=== PATIENT | male | born 1955 | race Caucasian/White ===

== ENCOUNTER 2016-06-09 13:27 | Emergency (ER) | payer MEDICARE, MEDICAID ==
[~2016-06-09] VITALS: Ht 180.3 cm; Wt 98.0 kg
[~2016-06-09 13:27] MED LIST: DABI150 PO; DIVA500T35 PO; DOCU250C91 PO; LISI-662 PO; OMEP20 PO
[2016-06-09 14:29] LABS: BASOPHILS # (AUTO) 0.02 K/uL (0.00-0.20); BASOPHILS % (AUTO) 0.2 % (0.0-2.0); EOSINOPHILS # (AUTO) 0.02 K/uL (0.00-0.70); EOSINOPHILS % (AUTO) 0.24 % (1.0-6.0); HEMOGLOBIN 12.5 g/dL (13.5-17.5); LYMPHOCYTES # (AUTO) 1.8 K/uL (1.0-4.8); LYMPHOCYTES % (AUTO) 17.8 % (22.0-44.0); MEAN CORPUSCULAR HEMOGLOBIN 29.9 pg (26.0-34.0); MEAN CORPUSCULAR HGB CONC 33.8 G/dL (31.0-37.0); MEAN CORPUSCULAR VOLUME 88 fL (80-100); MONOCYTES # (AUTO) 0.8 K/uL (0.1-1.0); MONOCYTES % (AUTO) 8.4 % (2.0-9.0); NEUTROPHILS # (AUTO) 7.3 K/uL (1.8-7.7); NEUTROPHILS % (AUTO) 73.4 % (40.0-70.0); PLATELET COUNT (AUTO) 189 K/uL (150-450); RED BLOOD CELL COUNT(AUTO) 4.19 MIL/uL (4.50-5.90); WHITE BLOOD COUNT (AUTO) 9.9 K/uL (4.5-11.0)
[2016-06-09 14:32] LABS: ANION GAP 10 mmol/L (8-16); CALCIUM, TOTAL 8.7 mg/dL (8.8-10.5); CARBON DIOXIDE 29 mmol/L (22-29); CHLORIDE 101 mmol/L (98-107); CREATININE 1.37 mg/dL (0.60-1.30); GLOMERULAR FILTR. RATE CALC 53 mL/min (>60); POTASSIUM 4.4 mmol/L (3.5-5.1); SODIUM SERUM 140 mmol/L (136-145); UREA NITROGEN, BLOOD 22 mg/dL (7-18)
[2016-06-09 14:43] LABS: B-TYPE NATRIURETIC PEPTIDE 149 pg/mL (0-100)
[2016-06-09 14:56] LABS: ALANINE AMINOTRANSFERASE 16 U/L (12-78); ALBUMIN 3.4 g/dL (3.4-5.0); ASPARTATE AMINOTRANSFERASE 17 U/L (15-37); BILIRUBIN,TOTAL 0.6 mg/dL (0.1-1.0); CREATINE KINASE MB 0.9 ng/mL (0-5); CREATINE KINASE, TOTAL 112 U/L (39-308); TOTAL PROTEIN, SERUM 7.2 g/dL (6.4-8.2)
[2016-06-09] MEDS ORDERED: PANTOPRAZOLE SODIUM 40 MG DR TABLET PO ONE (17:45)
[2016-06-09 18:59] VITALS: BP 144/91
== END 2016-06-09 19:34 | disposition home or self-care (01) ==
LOC: EEVIPCON 13:31 → EMS 13:31
DX: F41.9 Anxiety disorder, unspecified (principal); R07.9 Chest pain, unspecified; R10.13 Epigastric pain; F31.9 Bipolar disorder, unspecified; J44.9 Chronic obstructive pulmonary disease, unspecified; I10 Essential (primary) hypertension; F20.9 Schizophrenia, unspecified
CPT/HCPCS: 36415; 80053; 82550; 82553; 83880; 84484; 85025; 93005; 99285; G0480

== ENCOUNTER 2016-10-11 11:23 | Emergency (ER) | payer MEDICARE, MEDICAID ==
[~2016-10-11] VITALS: Ht 180.3 cm; Wt 100.9 kg
[2016-10-11 14:56] VITALS: BP 129/89
== END 2016-10-11 15:02 | disposition home or self-care (01) ==
LOC: EMS 11:26
DX: S01.111A Laceration without foreign body of right eyelid and periocular area, initial encounter (principal); S09.90XA Unspecified injury of head, initial encounter; F20.9 Schizophrenia, unspecified; F41.9 Anxiety disorder, unspecified; I10 Essential (primary) hypertension; F31.9 Bipolar disorder, unspecified; I48.91 Unspecified atrial fibrillation; J44.9 Chronic obstructive pulmonary disease, unspecified; Z79.01 Long term (current) use of anticoagulants; W22.8XXA Striking against or struck by other objects, initial encounter; Y93.39 Activity, other involving climbing, rappelling and jumping off; Y92.013 Bedroom of single-family (private) house as the place of occurrence of the external cause; Y99.9 Unspecified external cause status
CPT/HCPCS: 12011; 99283

== ENCOUNTER 2017-03-14 22:45 | Inpatient (IN) | payer OTHER, MEDICAID ==
[~2017-03-14] VITALS: Ht 180.3 cm; Wt 99.2 kg
[~2017-03-14 22:45] MED LIST changes: +RISP1 PO
[2017-03-14] MEDS ORDERED: METO50TA18 PO (22:59)
[2017-03-14 23:15] LABS: BASOPHILS % (AUTO) 0.7 % (0.0-2.0); EOSINOPHILS % (AUTO) 1.7 % (1.0-6.0); HEMATOCRIT 41.4 % (41-53); HEMOGLOBIN 14.2 g/dL (13.5-17.5); LYMPHOCYTES # (AUTO) 2.7 K/uL (1.0-4.8); MEAN CORPUSCULAR HEMOGLOBIN 29.5 pg (26.0-34.0); MEAN CORPUSCULAR HGB CONC 34.4 G/dL (31.0-37.0); MEAN CORPUSCULAR VOLUME 86 fL (80-100); MONOCYTES % (AUTO) 14.3 % (2.0-9.0); NEUTROPHILS % (AUTO) 44.3 % (40.0-70.0); PLATELET COUNT (AUTO) 222 K/uL (150-450); RED BLOOD CELL COUNT(AUTO) 4.83 MIL/uL (4.50-5.90); RED CELL DISTRIBUTION WIDTH 15.8 % (11.5-14.5); WHITE BLOOD COUNT (AUTO) 6.8 K/uL (4.5-11.0)
[2017-03-14 23:24] LABS: ANION GAP 5 mmol/L (8-16); CALCIUM, TOTAL 8.9 mg/dL (8.8-10.5); CARBON DIOXIDE 33 mmol/L (22-29); CHLORIDE 95 mmol/L (98-107); CREATININE 1.17 mg/dL (0.60-1.30); GLOMERULAR FILTR. RATE CALC > 60 mL/min (>60); POTASSIUM 3.3 mmol/L (3.5-5.1); SODIUM SERUM 133 mmol/L (136-145); UREA NITROGEN, BLOOD 11 mg/dL (7-18)
[2017-03-14 23:30] LABS: ALANINE AMINOTRANSFERASE 18 U/L (12-78); ALBUMIN 3.6 g/dL (3.4-5.0); ASPARTATE AMINOTRANSFERASE 17 U/L (15-37); BILIRUBIN,TOTAL 0.3 mg/dL (0.1-1.0); TOTAL PROTEIN, SERUM 7.8 g/dL (6.4-8.2); VALPROIC ACID 90 mcg/mL (50-100)
[2017-03-15] MEDS ORDERED: LORazepam 2 MG TABLET PO PRN (00:30)
[2017-03-15] MEDS ORDERED: HALOPERIDOL 5 MG TABLET PO PRN (00:30)
[2017-03-15] MEDS ORDERED: ZOLPIDEM TARTRATE 10 MG TABLET PO PRN (00:30)
[2017-03-15] MEDS ORDERED: POTASSIUM CHLORIDE 20 MEQ ER TABLET PO ONE (00:45)
[2017-03-15 00:52] LABS: CHOL/HDL RATIO 4.3 (4.2-7.3); THYROID STIMULATING HORMONE 7.52 uIU/mL (0.36-3.74)
[2017-03-15 01:14] LABS: APPEARANCE,URINE CLEAR (CLEAR); GLUCOSE, URINE (UA) NEGATIVE (NEGATIVE); KETONES,URINE TRACE mg/dL (NEGATIVE); LEUKOCYTE ESTERASE ,URINE NEGATIVE (NEGATIVE); OCCULT BLOOD,URINE NEGATIVE (NEGATIVE); PROTEIN,URINE POS 1+ (NEGATIVE)
[2017-03-15 01:19] LABS: ADD UA MICROSCOPIC NO
[2017-03-15] MEDS ORDERED: INFLUENZA VIRUS VACCINE QVS 2017-18 (3YR+)/PF 60 MCG/0.5 ML SYRINGE IM ONE (02:00)
[2017-03-15] MEDS ORDERED: PNEUMOCOCCAL VACCINE POLYVALENT 0.5 ML VIAL [PPSV23] IM ONE (02:00)
[2017-03-15 02:19] VITALS: BP 155/91
[2017-03-15 09:15] VITALS: BP 128/98
[2017-03-15] MEDS ORDERED: ONDANSETRON HCL 4 MG TABLET PO PRN (09:30)
[2017-03-15] MEDS ORDERED: ALBUTEROL SULFATE HFA 90 MCG/PUFF 8 GM INHALER IH PRN (09:30)
[2017-03-15] MEDS ORDERED: MAG HYDROX/AL HYDROX/SIMETH ES 30 ML SUSPENSION UDCUP PO PRN (09:30)
[2017-03-15] MEDS ORDERED: MAGNESIUM HYDROXIDE SUSPENSION 30 ML UDCUP PO PRN (09:30)
[2017-03-15] MEDS ORDERED: LOPERAMIDE HCL 2 MG CAPSULE PO PRN (09:30)
[2017-03-15] MEDS ORDERED: ACETAMINOPHEN 325 MG TABLET PO PRN (09:30)
[2017-03-15] MEDS ORDERED: CloNIDine HCL 0.1 MG TABLET PO PRN (09:30)
[2017-03-15] MEDS ORDERED: IBUPROFEN 600 MG TABLET PO PRN (09:30)
[2017-03-15] MEDS ORDERED: BACITRACIN 28.4 GM OINTMENT TP PRN (09:30)
[2017-03-15] MEDS ORDERED: PETROLATUM,WHITE 71 GM JELLY TP PRN (09:30)
[2017-03-15] MEDS ORDERED: BENZOCAINE/MENTHOL LOZENGE MM PRN (09:30)
[2017-03-15] MEDS ORDERED: BENZOCAINE/MENTHOL LOZENGE [8 LOZENGES/PACKET] MM PRN (09:38)
[2017-03-15] MEDS: DABIGATRAN ETEXILATE MESYLATE 150 MG CAPSULE PO SCH ×2 (11:55→16:29)
[2017-03-15] MEDS: METOPROLOL TARTRATE 50 MG TABLET PO SCH ×2 (11:55→16:29)
[2017-03-15 17:32] VITALS: BP 151/95
[2017-03-15] MEDS: DIVALPROEX SODIUM 500 MG DR TABLET PO SCH (20:33)
[2017-03-16 04:48] VITALS: BP 147/101
[2017-03-16 06:22] LABS: POTASSIUM 3.8 mmol/L (3.5-5.1)
[2017-03-16] MEDS: LEVOTHYROXINE SODIUM 50 MCG TABLET PO SCH ×3 (07:00→07:08)
[2017-03-16 08:32] VITALS: BP 149/80
[2017-03-16] MEDS: DOCUSATE SODIUM 100 MG CAPSULE PO SCH ×2 (09:00→09:21)
[2017-03-16] MEDS: DABIGATRAN ETEXILATE MESYLATE 150 MG CAPSULE PO SCH ×2 (09:21→16:33)
[2017-03-16] MEDS: OMEPRAZOLE 20 MG CAPSULE PO SCH (09:21)
[2017-03-16] MEDS: METOPROLOL TARTRATE 50 MG TABLET PO SCH ×2 (09:21→16:33)
[2017-03-16] MEDS: OMEGA-3/DHA/EPA/FISH OIL 1,000 MG CAPSULE PO SCH (09:21)
[2017-03-16] MEDS: RisperiDONE 1 MG TABLET PO SCH ×2 (09:22→16:33)
[2017-03-16 16:41] VITALS: BP 128/79
[2017-03-16] MEDS: DIVALPROEX SODIUM 500 MG DR TABLET PO SCH (20:00)
[2017-03-17 05:19] VITALS: BP 138/74
[2017-03-17 08:15] VITALS: BP 134/73
[2017-03-17] MEDS: RisperiDONE 1 MG TABLET PO SCH ×2 (09:24→16:27)
[2017-03-17] MEDS: METOPROLOL TARTRATE 50 MG TABLET PO SCH ×2 (09:24→16:27)
[2017-03-17] MEDS: DOCUSATE SODIUM 100 MG CAPSULE PO SCH (09:24)
[2017-03-17] MEDS: OMEPRAZOLE 20 MG CAPSULE PO SCH (09:25)
[2017-03-17] MEDS: OMEGA-3/DHA/EPA/FISH OIL 1,000 MG CAPSULE PO SCH (09:25)
[2017-03-17] MEDS: DABIGATRAN ETEXILATE MESYLATE 150 MG CAPSULE PO SCH ×2 (09:25→16:27)
[2017-03-17 16:45] VITALS: BP 113/68
[2017-03-17] MEDS: DIVALPROEX SODIUM 500 MG DR TABLET PO SCH (20:20)
[2017-03-18] MEDS: LEVOTHYROXINE SODIUM 50 MCG TABLET PO SCH (07:00)
[2017-03-18] MEDS: DOCUSATE SODIUM 100 MG CAPSULE PO SCH (08:12)
[2017-03-18] MEDS: OMEPRAZOLE 20 MG CAPSULE PO SCH (08:12)
[2017-03-18] MEDS: RisperiDONE 1 MG TABLET PO SCH ×2 (08:12→16:40)
[2017-03-18] MEDS: DABIGATRAN ETEXILATE MESYLATE 150 MG CAPSULE PO SCH ×2 (08:13→16:39)
[2017-03-18] MEDS: OMEGA-3/DHA/EPA/FISH OIL 1,000 MG CAPSULE PO SCH (08:14)
[2017-03-18] MEDS: METOPROLOL TARTRATE 50 MG TABLET PO SCH ×2 (08:15→16:40)
[2017-03-18 08:56] VITALS: BP 160/86
[2017-03-18 16:17] VITALS: BP 165/96
[2017-03-18] MEDS: DIVALPROEX SODIUM 500 MG DR TABLET PO SCH (20:41)
[2017-03-19] MEDS: LEVOTHYROXINE SODIUM 50 MCG TABLET PO SCH (07:04)
[2017-03-19] MEDS: OMEGA-3/DHA/EPA/FISH OIL 1,000 MG CAPSULE PO SCH (08:01)
[2017-03-19] MEDS: RisperiDONE 1 MG TABLET PO SCH (08:01)
[2017-03-19] MEDS: DOCUSATE SODIUM 100 MG CAPSULE PO SCH (08:01)
[2017-03-19] MEDS: OMEPRAZOLE 20 MG CAPSULE PO SCH (08:02)
[2017-03-19] MEDS: METOPROLOL TARTRATE 50 MG TABLET PO SCH (08:02)
[2017-03-19] MEDS: DABIGATRAN ETEXILATE MESYLATE 150 MG CAPSULE PO SCH (08:02)
[2017-03-19 08:55] VITALS: BP 162/98
[2017-03-19] MEDS ORDERED: OMEG-135 PO (12:10)
[2017-03-19] MEDS ORDERED: LEVO50TA11 PO (12:11)
== END 2017-03-19 14:00 | disposition home or self-care (01) | DRG 885 ==
LOC: EMS 22:47 → 3EX 03-15 00:30
PROVIDERS: ADMIT Psychiatry & Neurology Psychiatry; ATTEND Psychiatry & Neurology Psychiatry
DX: F25.9 Schizoaffective disorder, unspecified (principal); R45.851 Suicidal ideations; E87.1 Hypo-osmolality and hyponatremia; F23 Brief psychotic disorder; I48.91 Unspecified atrial fibrillation; J44.9 Chronic obstructive pulmonary disease, unspecified; K21.9 Gastro-esophageal reflux disease without esophagitis; K59.00 Constipation, unspecified; I10 Essential (primary) hypertension; F41.9 Anxiety disorder, unspecified; M19.90 Unspecified osteoarthritis, unspecified site; M54.9 Dorsalgia, unspecified; F17.200 Nicotine dependence, unspecified, uncomplicated; E87.6 Hypokalemia; E03.9 Hypothyroidism, unspecified; E78.5 Hyperlipidemia, unspecified; E78.1 Pure hyperglyceridemia; Z86.12 Personal history of poliomyelitis; Z88.8 Allergy status to other drugs, medicaments and biological substances; Z79.899 Other long term (current) drug therapy
CPT/HCPCS: 84132; 84295; 84443; 99285; G0480

== ENCOUNTER 2017-03-29 21:02 | Inpatient (IN) | payer OTHER, MEDICAID ==
[~2017-03-29] VITALS: Ht 180.3 cm; Wt 100.5 kg
[~2017-03-29 21:02] MED LIST changes: +LEVO50TA11 PO; -LISI-662 PO; +METO50TA18 PO; +OMEG-135 PO
[2017-03-29] MEDS ORDERED: LORazepam 2 MG TABLET PO PRN (22:45)
[2017-03-29] MEDS ORDERED: ZOLPIDEM TARTRATE 10 MG TABLET PO PRN (22:45)
[2017-03-29] MEDS ORDERED: HALOPERIDOL 5 MG TABLET PO PRN (22:45)
[2017-03-30] LABS: CHOL/HDL RATIO 3.5 (4.2-7.3); THYROID STIMULATING HORMONE 2.48 uIU/mL (0.36-3.74)
[2017-03-30 00:36] LABS: ANION GAP 7 mmol/L (8-16); CALCIUM, TOTAL 8.8 mg/dL (8.8-10.5); CARBON DIOXIDE 32 mmol/L (22-29); CHLORIDE 101 mmol/L (98-107); CREATININE 1.13 mg/dL (0.60-1.30); GLOMERULAR FILTR. RATE CALC > 60 mL/min (>60); POTASSIUM 3.7 mmol/L (3.5-5.1); SODIUM SERUM 140 mmol/L (136-145); UREA NITROGEN, BLOOD 14 mg/dL (7-18)
[2017-03-30 00:38] LABS: ALANINE AMINOTRANSFERASE 20 U/L (12-78); ALBUMIN 3.4 g/dL (3.4-5.0); ASPARTATE AMINOTRANSFERASE 14 U/L (15-37); BILIRUBIN,TOTAL 0.3 mg/dL (0.1-1.0); TOTAL PROTEIN, SERUM 7.3 g/dL (6.4-8.2)
[2017-03-30 01:03] LABS: APPEARANCE,URINE CLEAR (CLEAR); GLUCOSE, URINE (UA) NEGATIVE (NEGATIVE); KETONES,URINE TRACE mg/dL (NEGATIVE); LEUKOCYTE ESTERASE ,URINE NEGATIVE (NEGATIVE); OCCULT BLOOD,URINE NEGATIVE (NEGATIVE); PROTEIN,URINE TRACE (NEGATIVE)
[2017-03-30 01:15] LABS: ADD UA MICROSCOPIC NO
[2017-03-30 01:20] LABS: BASOPHILS # (AUTO) 0.03 K/uL (0.00-0.20); BASOPHILS % (AUTO) 0.4 % (0.0-2.0); EOSINOPHILS # (AUTO) 0.11 K/uL (0.00-0.70); EOSINOPHILS % (AUTO) 1.72 % (1.0-6.0); HEMOGLOBIN 12.8 g/dL (13.5-17.5); LYMPHOCYTES # (AUTO) 2.3 K/uL (1.0-4.8); LYMPHOCYTES % (AUTO) 35.5 % (22.0-44.0); MEAN CORPUSCULAR HEMOGLOBIN 29.1 pg (26.0-34.0); MEAN CORPUSCULAR HGB CONC 32.9 G/dL (31.0-37.0); MEAN CORPUSCULAR VOLUME 88 fL (80-100); MONOCYTES # (AUTO) 0.7 K/uL (0.1-1.0); MONOCYTES % (AUTO) 11.4 % (2.0-9.0); NEUTROPHILS # (AUTO) 3.3 K/uL (1.8-7.7); PLATELET COUNT (AUTO) 218 K/uL (150-450); RED BLOOD CELL COUNT(AUTO) 4.42 MIL/uL (4.50-5.90); RED CELL DISTRIBUTION WIDTH 16.4 % (11.5-14.5); WHITE BLOOD COUNT (AUTO) 6.4 K/uL (4.5-11.0)
[2017-03-30 03:01] VITALS: BP 154/88
[2017-03-30] MEDS ORDERED: INFLUENZA VIRUS VACCINE QVS 2017-18 (3YR+)/PF 60 MCG/0.5 ML SYRINGE IM ONE (03:15)
[2017-03-30] MEDS ORDERED: PNEUMOCOCCAL VACCINE POLYVALENT 0.5 ML VIAL [PPSV23] IM ONE (03:15)
[2017-03-30] MEDS ORDERED: MAGNESIUM HYDROXIDE SUSPENSION 30 ML UDCUP PO PRN (08:30)
[2017-03-30] MEDS ORDERED: ALBUTEROL SULFATE HFA 90 MCG/PUFF 8 GM INHALER IH PRN (08:30)
[2017-03-30] MEDS ORDERED: DIPHENOXYLATE/ATROP 2.5-0.025 MG TABLET PO PRN (08:30)
[2017-03-30] MEDS ORDERED: ACETAMINOPHEN 325 MG TABLET PO PRN (08:30)
[2017-03-30] MEDS ORDERED: PETROLATUM,WHITE 71 GM JELLY TP PRN (08:30)
[2017-03-30] MEDS ORDERED: BACITRACIN 28.4 GM OINTMENT TP PRN (08:30)
[2017-03-30] MEDS ORDERED: ONDANSETRON HCL 4 MG TABLET PO PRN (08:30)
[2017-03-30] MEDS ORDERED: MAG HYDROX/AL HYDROX/SIMETH ES 30 ML SUSPENSION UDCUP PO PRN (08:30)
[2017-03-30] MEDS ORDERED: BENZOCAINE/MENTHOL LOZENGE MM PRN (08:30)
[2017-03-30] MEDS ORDERED: CloNIDine HCL 0.1 MG TABLET PO PRN (08:30)
[2017-03-30 08:41] VITALS: BP 153/92
[2017-03-30] MEDS ORDERED: BENZOCAINE/MENTHOL LOZENGE [8 LOZENGES/PACKET] MM PRN (08:45)
[2017-03-30] MEDS: OMEGA-3/DHA/EPA/FISH OIL 1,000 MG CAPSULE PO SCH (09:26)
[2017-03-30] MEDS: METOPROLOL TARTRATE 50 MG TABLET PO SCH ×2 (09:26→16:04)
[2017-03-30] MEDS: DABIGATRAN ETEXILATE MESYLATE 150 MG CAPSULE PO SCH ×2 (09:27→16:04)
[2017-03-30] MEDS: AmLODIPine BESYLATE 5 MG TABLET PO SCH (09:28)
[2017-03-30] MEDS: OMEPRAZOLE 20 MG CAPSULE PO SCH (09:28)
[2017-03-30 17:18] VITALS: BP 161/92
[2017-03-31 06:15] LABS: BASOPHILS % (AUTO) 0.4 % (0.0-2.0); EOSINOPHILS % (AUTO) 1.3 % (1.0-6.0); HEMATOCRIT 37.2 % (41-53); HEMOGLOBIN 12.8 g/dL (13.5-17.5); LYMPHOCYTES # (AUTO) 1.4 K/uL (1.0-4.8); LYMPHOCYTES % (AUTO) 17.3 % (22.0-44.0); MEAN CORPUSCULAR HEMOGLOBIN 29.8 pg (26.0-34.0); MEAN CORPUSCULAR HGB CONC 34.4 G/dL (31.0-37.0); MEAN CORPUSCULAR VOLUME 87 fL (80-100); MONOCYTES % (AUTO) 12.3 % (2.0-9.0); NEUTROPHILS # (AUTO) 5.6 K/uL (1.8-7.7); NEUTROPHILS % (AUTO) 68.7 % (40.0-70.0); PLATELET COUNT (AUTO) 222 K/uL (150-450); RED BLOOD CELL COUNT(AUTO) 4.29 MIL/uL (4.50-5.90); RED CELL DISTRIBUTION WIDTH 15.9 % (11.5-14.5); WHITE BLOOD COUNT (AUTO) 8.2 K/uL (4.5-11.0)
[2017-03-31] MEDS: LEVOTHYROXINE SODIUM 50 MCG TABLET PO SCH (06:27)
[2017-03-31 08:05] VITALS: BP 129/80
[2017-03-31] MEDS: OMEGA-3/DHA/EPA/FISH OIL 1,000 MG CAPSULE PO SCH (08:57)
[2017-03-31] MEDS: OMEPRAZOLE 20 MG CAPSULE PO SCH (08:57)
[2017-03-31] MEDS: AmLODIPine BESYLATE 5 MG TABLET PO SCH (08:58)
[2017-03-31] MEDS: METOPROLOL TARTRATE 50 MG TABLET PO SCH ×2 (08:58→16:28)
[2017-03-31] MEDS: DABIGATRAN ETEXILATE MESYLATE 150 MG CAPSULE PO SCH ×2 (08:58→16:28)
[2017-03-31 17:00] VITALS: BP 131/75
[2017-04-01] MEDS: LEVOTHYROXINE SODIUM 50 MCG TABLET PO SCH (07:11)
[2017-04-01] MEDS: OMEGA-3/DHA/EPA/FISH OIL 1,000 MG CAPSULE PO SCH (08:28)
[2017-04-01] MEDS: DABIGATRAN ETEXILATE MESYLATE 150 MG CAPSULE PO SCH ×2 (08:28→16:09)
[2017-04-01] MEDS: METOPROLOL TARTRATE 50 MG TABLET PO SCH ×2 (08:29→16:09)
[2017-04-01] MEDS: AmLODIPine BESYLATE 5 MG TABLET PO SCH (08:31)
[2017-04-01] MEDS: OMEPRAZOLE 20 MG CAPSULE PO SCH (08:32)
[2017-04-01] MEDS: MULTIVITAMINS WITH MINERALS, THERAPEUTIC TABLET PO SCH (08:32)
[2017-04-01] MEDS ORDERED: OMEGA-3/DHA/EPA/FISH OIL 1,000 MG CAPSULE PO SCH (09:00)
[2017-04-01 10:56] VITALS: BP 125/72
[2017-04-01 14:26] VITALS: BP 145/89
[2017-04-01] MEDS: IBUPROFEN 600 MG TABLET PO PRN (14:26)
[2017-04-01 15:28] VITALS: BP 141/87
[2017-04-01 16:26] VITALS: BP 118/78
[2017-04-02] MEDS: LEVOTHYROXINE SODIUM 50 MCG TABLET PO SCH (07:10)
[2017-04-02] MEDS: OMEPRAZOLE 20 MG CAPSULE PO SCH (08:21)
[2017-04-02] MEDS: DABIGATRAN ETEXILATE MESYLATE 150 MG CAPSULE PO SCH ×2 (08:21→16:05)
[2017-04-02] MEDS: AmLODIPine BESYLATE 5 MG TABLET PO SCH (08:21)
[2017-04-02] MEDS: MULTIVITAMINS WITH MINERALS, THERAPEUTIC TABLET PO SCH (08:21)
[2017-04-02] MEDS: METOPROLOL TARTRATE 50 MG TABLET PO SCH ×2 (08:21→16:05)
[2017-04-02] MEDS: OMEGA-3/DHA/EPA/FISH OIL 1,000 MG CAPSULE PO SCH (09:00)
[2017-04-02 10:16] VITALS: BP 156/92
[2017-04-02] MEDS: RisperiDONE 1 MG TABLET PO SCH ×2 (12:58→16:05)
[2017-04-02 15:00] VITALS: BP 144/86
[2017-04-02] MEDS: IBUPROFEN 600 MG TABLET PO PRN (15:00)
[2017-04-02 16:00] VITALS: BP 133/72
[2017-04-02] MEDS ORDERED: DIVALPROEX SODIUM 500 MG DR TABLET PO SCH (21:00)
[2017-04-03] MEDS: LEVOTHYROXINE SODIUM 50 MCG TABLET PO SCH (06:22)
[2017-04-03] MEDS: DABIGATRAN ETEXILATE MESYLATE 150 MG CAPSULE PO SCH (08:20)
[2017-04-03] MEDS: AmLODIPine BESYLATE 5 MG TABLET PO SCH (08:20)
[2017-04-03] MEDS: OMEGA-3/DHA/EPA/FISH OIL 1,000 MG CAPSULE PO SCH (08:20)
[2017-04-03] MEDS: OMEPRAZOLE 20 MG CAPSULE PO SCH (08:20)
[2017-04-03] MEDS: MULTIVITAMINS WITH MINERALS, THERAPEUTIC TABLET PO SCH (08:20)
[2017-04-03] MEDS: RisperiDONE 1 MG TABLET PO SCH (08:20)
[2017-04-03] MEDS: METOPROLOL TARTRATE 50 MG TABLET PO SCH (08:21)
[2017-04-03 08:49] VITALS: BP 161/76
[2017-04-03] MEDS ORDERED: AMLO-511 PO (09:21)
[2017-04-03] MEDS ORDERED: MULT-1203 PO (09:22)
== END 2017-04-03 12:20 | disposition home or self-care (01) | DRG 885 ==
LOC: EMS 21:04 → 3EX 03-30 00:36
PROVIDERS: ADMIT Psychiatry & Neurology Psychiatry; ATTEND Psychiatry & Neurology Psychiatry
DX: F25.1 Schizoaffective disorder, depressive type (principal); R45.851 Suicidal ideations; I48.91 Unspecified atrial fibrillation; F17.200 Nicotine dependence, unspecified, uncomplicated; G47.00 Insomnia, unspecified; I10 Essential (primary) hypertension; J44.9 Chronic obstructive pulmonary disease, unspecified; K21.9 Gastro-esophageal reflux disease without esophagitis; K59.00 Constipation, unspecified; F41.9 Anxiety disorder, unspecified; M19.90 Unspecified osteoarthritis, unspecified site; F12.90 Cannabis use, unspecified, uncomplicated; D64.9 Anemia, unspecified; E78.1 Pure hyperglyceridemia; Z79.899 Other long term (current) drug therapy; Z86.12 Personal history of poliomyelitis; Z88.8 Allergy status to other drugs, medicaments and biological substances; Z72.89 Other problems related to lifestyle
CPT/HCPCS: 84443; 87081; 99285; G0480

== ENCOUNTER 2017-04-14 22:55 | Inpatient (IN) | payer OTHER, MEDICAID ==
[~2017-04-14] VITALS: Ht 180.3 cm; Wt 102.6 kg
[~2017-04-14 22:55] MED LIST changes: +AMLO-511 PO; -DOCU250C91 PO; +MULT-1203 PO
[2017-04-15 01:00] LABS: BASOPHILS % (AUTO) 0.5 % (0.0-2.0); EOSINOPHILS % (AUTO) 1.6 % (1.0-6.0); HEMATOCRIT 39.9 % (41-53); HEMOGLOBIN 13.6 g/dL (13.5-17.5); LYMPHOCYTES # (AUTO) 2.9 K/uL (1.0-4.8); LYMPHOCYTES % (AUTO) 42.1 % (22.0-44.0); MEAN CORPUSCULAR HEMOGLOBIN 29.7 pg (26.0-34.0); MEAN CORPUSCULAR VOLUME 87 fL (80-100); MONOCYTES # (AUTO) 0.7 K/uL (0.1-1.0); MONOCYTES % (AUTO) 9.6 % (2.0-9.0); NEUTROPHILS # (AUTO) 3.2 K/uL (1.8-7.7); NEUTROPHILS % (AUTO) 46.2 % (40.0-70.0); PLATELET COUNT (AUTO) 232 K/uL (150-450); RED BLOOD CELL COUNT(AUTO) 4.56 MIL/uL (4.50-5.90); RED CELL DISTRIBUTION WIDTH 15.9 % (11.5-14.5)
[2017-04-15 01:09] LABS: ANION GAP 5 mmol/L (8-16); CALCIUM, TOTAL 9.7 mg/dL (8.8-10.5); CARBON DIOXIDE 35 mmol/L (22-29); CHLORIDE 97 mmol/L (98-107); CREATININE 1.03 mg/dL (0.60-1.30); GLOMERULAR FILTR. RATE CALC > 60 mL/min (>60); GLUCOSE,RANDOM 117 mg/dL (70-110); POTASSIUM 4.5 mmol/L (3.5-5.1); SODIUM SERUM 137 mmol/L (136-145); UREA NITROGEN, BLOOD 16 mg/dL (7-18)
[2017-04-15 01:15] LABS: ALANINE AMINOTRANSFERASE 23 U/L (12-78); ALBUMIN 3.6 g/dL (3.4-5.0); ALKALINE PHOSPHATASE 105 U/L (46-116); ASPARTATE AMINOTRANSFERASE 17 U/L (15-37); BILIRUBIN,TOTAL 0.3 mg/dL (0.1-1.0)
[2017-04-15 02:01] LABS: AMPHET/METH SCREEN,URINE NEGATIVE (NEGATIVE); BARBITURATE SCREEN, URINE NEGATIVE (NEGATIVE); BENZODIAZEPINES SCREEN,URINE NEGATIVE (NEGATIVE); CANNABINOID SCREEN,URINE NEGATIVE (NEGATIVE); COCAINE SCREEN,URINE NEGATIVE (NEGATIVE); METHADONE SCREEN, URINE NEGATIVE (NEGATIVE); OPIATE SCREEN,URINE NEGATIVE (NEGATIVE)
[2017-04-15 02:04] LABS: APPEARANCE,URINE CLEAR (CLEAR); BILIRUBIN,URINE NEGATIVE (NEGATIVE); GLUCOSE, URINE (UA) NEGATIVE (NEGATIVE); KETONES,URINE TRACE mg/dL (NEGATIVE); LEUKOCYTE ESTERASE ,URINE NEGATIVE (NEGATIVE); NITRATE,URINE NEGATIVE (NEGATIVE); OCCULT BLOOD,URINE NEGATIVE (NEGATIVE); PROTEIN,URINE NEGATIVE (NEGATIVE); UROBILINOGEN,URINE 0.2 mg/dL (<=1.0)
[2017-04-15 02:16] LABS: PHENCYCLIDINE SCREEN,URINE NEGATIVE (NEGATIVE)
[2017-04-15] MEDS ORDERED: ZOLPIDEM TARTRATE 10 MG TABLET PO PRN ×2 (04:15→04:45)
[2017-04-15] MEDS ORDERED: HALOPERIDOL 5 MG TABLET PO PRN (04:45)
[2017-04-15] MEDS ORDERED: LORazepam 2 MG TABLET PO PRN (04:45)
[2017-04-15 06:00] VITALS: BP 160/76
[2017-04-15 08:15] VITALS: BP 145/76
[2017-04-15] MEDS: AmLODIPine BESYLATE 5 MG TABLET PO SCH (13:31)
[2017-04-15] MEDS: LEVOTHYROXINE SODIUM 50 MCG TABLET PO SCH (13:31)
[2017-04-15] MEDS: DABIGATRAN ETEXILATE MESYLATE 150 MG CAPSULE PO SCH (17:59)
[2017-04-15] MEDS: METOPROLOL TARTRATE 50 MG TABLET PO SCH (17:59)
[2017-04-15] MEDS: DOCUSATE SODIUM 100 MG CAPSULE PO SCH (17:59)
[2017-04-15] MEDS: RisperiDONE 1 MG TABLET PO SCH (18:00)
[2017-04-15 20:36] VITALS: BP 136/85
[2017-04-15] MEDS: DIVALPROEX SODIUM 500 MG DR TABLET PO SCH (21:15)
[2017-04-16] MEDS: LEVOTHYROXINE SODIUM 50 MCG TABLET PO SCH (06:39)
[2017-04-16 08:21] LABS: CHOL/HDL RATIO 4.5 (4.2-7.3)
[2017-04-16] MEDS: MULTIVITAMINS, THERAPEUTIC TABLET PO SCH (09:15)
[2017-04-16] MEDS: OMEGA-3/DHA/EPA/FISH OIL 1,000 MG CAPSULE PO SCH (09:15)
[2017-04-16] MEDS: METOPROLOL TARTRATE 50 MG TABLET PO SCH ×2 (09:15→16:28)
[2017-04-16] MEDS: AmLODIPine BESYLATE 5 MG TABLET PO SCH (09:15)
[2017-04-16] MEDS: OMEPRAZOLE 20 MG CAPSULE PO SCH (09:15)
[2017-04-16] MEDS: RisperiDONE 1 MG TABLET PO SCH ×2 (09:15→16:28)
[2017-04-16] MEDS: DABIGATRAN ETEXILATE MESYLATE 150 MG CAPSULE PO SCH ×2 (09:15→16:28)
[2017-04-16] MEDS: DOCUSATE SODIUM 100 MG CAPSULE PO SCH ×2 (09:16→16:28)
[2017-04-16 10:01] VITALS: BP 138/98
[2017-04-16 17:47] VITALS: BP 127/85
[2017-04-16] MEDS: DIVALPROEX SODIUM 500 MG DR TABLET PO SCH (20:43)
[2017-04-17] MEDS: LEVOTHYROXINE SODIUM 50 MCG TABLET PO SCH (06:40)
[2017-04-17 06:43] VITALS: BP 123/86
[2017-04-17] MEDS: OMEGA-3/DHA/EPA/FISH OIL 1,000 MG CAPSULE PO SCH (09:01)
[2017-04-17] MEDS: DOCUSATE SODIUM 100 MG CAPSULE PO SCH ×2 (09:01→16:36)
[2017-04-17] MEDS: RisperiDONE 1 MG TABLET PO SCH ×2 (09:02→16:36)
[2017-04-17] MEDS: OMEPRAZOLE 20 MG CAPSULE PO SCH (09:02)
[2017-04-17] MEDS: AmLODIPine BESYLATE 5 MG TABLET PO SCH (09:02)
[2017-04-17] MEDS: DABIGATRAN ETEXILATE MESYLATE 150 MG CAPSULE PO SCH ×2 (09:02→16:36)
[2017-04-17] MEDS: METOPROLOL TARTRATE 50 MG TABLET PO SCH ×2 (09:02→16:36)
[2017-04-17] MEDS: MULTIVITAMINS, THERAPEUTIC TABLET PO SCH (09:03)
[2017-04-17 11:46] VITALS: BP 124/101
[2017-04-17 16:38] VITALS: BP 144/79
[2017-04-17] MEDS: DIVALPROEX SODIUM 500 MG DR TABLET PO SCH (20:14)
[2017-04-18] MEDS: LEVOTHYROXINE SODIUM 50 MCG TABLET PO SCH (06:49)
[2017-04-18 08:00] VITALS: BP 160/98
[2017-04-18] MEDS: DOCUSATE SODIUM 100 MG CAPSULE PO SCH ×2 (08:17→16:06)
[2017-04-18] MEDS: DABIGATRAN ETEXILATE MESYLATE 150 MG CAPSULE PO SCH ×2 (08:17→16:06)
[2017-04-18] MEDS: MULTIVITAMINS, THERAPEUTIC TABLET PO SCH (08:17)
[2017-04-18] MEDS: AmLODIPine BESYLATE 5 MG TABLET PO SCH (08:17)
[2017-04-18] MEDS: OMEPRAZOLE 20 MG CAPSULE PO SCH (08:17)
[2017-04-18] MEDS: METOPROLOL TARTRATE 50 MG TABLET PO SCH ×2 (08:17→16:06)
[2017-04-18] MEDS: RisperiDONE 1 MG TABLET PO SCH ×2 (08:17→16:07)
[2017-04-18] MEDS: OMEGA-3/DHA/EPA/FISH OIL 1,000 MG CAPSULE PO SCH (08:17)
== END 2017-04-18 18:45 | disposition home or self-care (01) | DRG 885 ==
LOC: EMS 22:57 → 3EX 04-15 04:53
PROVIDERS: ADMIT Psychiatry & Neurology Psychiatry; ATTEND Psychiatry & Neurology Psychiatry
DX: F25.9 Schizoaffective disorder, unspecified (principal); F22 Delusional disorders; I48.91 Unspecified atrial fibrillation; F41.9 Anxiety disorder, unspecified; J44.9 Chronic obstructive pulmonary disease, unspecified; I25.119 Atherosclerotic heart disease of native coronary artery with unspecified angina pectoris; F31.9 Bipolar disorder, unspecified; I10 Essential (primary) hypertension; F15.90 Other stimulant use, unspecified, uncomplicated; F12.90 Cannabis use, unspecified, uncomplicated; E03.9 Hypothyroidism, unspecified; E78.5 Hyperlipidemia, unspecified; K21.9 Gastro-esophageal reflux disease without esophagitis; D64.9 Anemia, unspecified; G47.00 Insomnia, unspecified; F17.200 Nicotine dependence, unspecified, uncomplicated; Z71.6 Tobacco abuse counseling; Z71.41 Alcohol abuse counseling and surveillance of alcoholic; Z79.899 Other long term (current) drug therapy; Z86.12 Personal history of poliomyelitis; Z72.89 Other problems related to lifestyle; Z88.8 Allergy status to other drugs, medicaments and biological substances; Z91.048 Other nonmedicinal substance allergy status; Z90.89 Acquired absence of other organs; Z91.5 Personal history of self-harm
CPT/HCPCS: 87081; 99285; G0480

== ENCOUNTER 2017-05-19 22:26 | Inpatient (IN) | payer OTHER, MEDICAID ==
[~2017-05-19] VITALS: Ht 180.3 cm; Wt 105.2 kg
[2017-05-19] MEDS ORDERED: FURO40 PO (22:51)
[2017-05-19 23:31] LABS: BASOPHILS % (AUTO) 0.9 % (0.0-2.0); EOSINOPHILS % (AUTO) 2.2 % (1.0-6.0); HEMOGLOBIN 13.5 g/dL (13.5-17.5); LYMPHOCYTES # (AUTO) 2.8 K/uL (1.0-4.8); LYMPHOCYTES % (AUTO) 36.7 % (22.0-44.0); MEAN CORPUSCULAR HEMOGLOBIN 29.9 pg (26.0-34.0); MEAN CORPUSCULAR HGB CONC 34.5 G/dL (31.0-37.0); MEAN CORPUSCULAR VOLUME 87 fL (80-100); MONOCYTES # (AUTO) 0.9 K/uL (0.1-1.0); MONOCYTES % (AUTO) 11.6 % (2.0-9.0); NEUTROPHILS # (AUTO) 3.7 K/uL (1.8-7.7); NEUTROPHILS % (AUTO) 48.6 % (40.0-70.0); PLATELET COUNT (AUTO) 234 K/uL (150-450); RED CELL DISTRIBUTION WIDTH 14.7 % (11.5-14.5)
[2017-05-19] MEDS ORDERED: DiphenhydrAMINE HCL 25 MG CAPSULE PO ONE (23:45)
[2017-05-19] MEDS ORDERED: HALOPERIDOL 5 MG TABLET PO PRN (23:45)
[2017-05-19] MEDS ORDERED: LORazepam 2 MG TABLET PO ONE (23:45)
[2017-05-19] MEDS ORDERED: LORazepam 2 MG TABLET PO PRN (23:45)
[2017-05-19 23:57] LABS: ANION GAP 9 mmol/L (8-16); CALCIUM, TOTAL 9.3 mg/dL (8.8-10.5); CARBON DIOXIDE 32 mmol/L (22-29); CHLORIDE 98 mmol/L (98-107); GLOMERULAR FILTR. RATE CALC > 60 mL/min (>60); GLUCOSE,RANDOM 91 mg/dL (70-110); POTASSIUM 3.9 mmol/L (3.5-5.1); SODIUM SERUM 139 mmol/L (136-145); UREA NITROGEN, BLOOD 21 mg/dL (7-18)
[2017-05-20 00:04] LABS: ALANINE AMINOTRANSFERASE 21 U/L (12-78); ALBUMIN 3.4 g/dL (3.4-5.0); ALKALINE PHOSPHATASE 99 U/L (46-116); ASPARTATE AMINOTRANSFERASE 19 U/L (15-37); BILIRUBIN,TOTAL 0.3 mg/dL (0.1-1.0); TOTAL PROTEIN, SERUM 7.3 g/dL (6.4-8.2); VALPROIC ACID 117 mcg/mL (50-100)
[2017-05-20 06:21] LABS: CHOL/HDL RATIO 4.8 (4.2-7.3); CHOLESTEROL 200 mg/dL (131-200); HDL CHOLESTEROL 42 mg/dL (40-60); LDL CHOL (CALC.) 111 mg/dL (0-130); TRIGLYCERIDES 233 mg/dL (15-150)
[2017-05-20 08:48] LABS: AMPHET/METH SCREEN,URINE NEGATIVE (NEGATIVE); BARBITURATE SCREEN, URINE NEGATIVE (NEGATIVE); BENZODIAZEPINES SCREEN,URINE NEGATIVE (NEGATIVE); CANNABINOID SCREEN,URINE NEGATIVE (NEGATIVE); COCAINE SCREEN,URINE NEGATIVE (NEGATIVE); METHADONE SCREEN, URINE NEGATIVE (NEGATIVE); OPIATE SCREEN,URINE NEGATIVE (NEGATIVE)
[2017-05-20 08:49] LABS: PHENCYCLIDINE SCREEN,URINE NEGATIVE (NEGATIVE)
[2017-05-20 11:25] VITALS: BP 130/80
[2017-05-20] MEDS ORDERED: INFLUENZA VIRUS VACCINE QVS 2017-18 (3YR+)/PF 60 MCG/0.5 ML SYRINGE IM ONE (13:15)
[2017-05-20] MEDS ORDERED: PNEUMOCOCCAL VACCINE POLYVALENT 0.5 ML VIAL [PPSV23] IM ONE (13:15)
[2017-05-20] MEDS ORDERED: DENTURE ADHESIVE 68 GM CREAM DT PRN (13:45)
[2017-05-20 17:20] VITALS: BP 147/66
[2017-05-20] MEDS: METOPROLOL TARTRATE 50 MG TABLET PO SCH (17:37)
[2017-05-20] MEDS: DIVALPROEX SODIUM 500 MG DR TABLET PO SCH (20:22)
[2017-05-21 00:19] VITALS: BP 119/76
[2017-05-21] MEDS: LEVOTHYROXINE SODIUM 50 MCG TABLET PO SCH (06:29)
[2017-05-21 08:11] VITALS: BP 143/77
[2017-05-21] MEDS: DOCUSATE SODIUM 100 MG CAPSULE PO SCH (09:27)
[2017-05-21] MEDS: METOPROLOL TARTRATE 50 MG TABLET PO SCH ×2 (09:27→16:00)
[2017-05-21] MEDS: DABIGATRAN ETEXILATE MESYLATE 150 MG CAPSULE PO SCH ×2 (09:27→16:00)
[2017-05-21] MEDS: MULTIVITAMINS, THERAPEUTIC TABLET PO SCH (09:28)
[2017-05-21] MEDS: AmLODIPine BESYLATE 5 MG TABLET PO SCH (09:28)
[2017-05-21] MEDS: OMEGA-3/DHA/EPA/FISH OIL 1,000 MG CAPSULE PO SCH (09:28)
[2017-05-21] MEDS: OMEPRAZOLE 20 MG CAPSULE PO SCH (09:28)
[2017-05-21] MEDS: RisperiDONE 1 MG TABLET PO SCH ×2 (09:28→16:00)
[2017-05-21] MEDS: NYSTATIN 30 GM CREAM TP SCH (09:29)
[2017-05-21 16:25] VITALS: BP 126/93
[2017-05-21] MEDS: DIVALPROEX SODIUM 500 MG DR TABLET PO SCH (20:04)
[2017-05-21] MEDS: ZOLPIDEM TARTRATE 10 MG TABLET PO PRN (20:44)
[2017-05-22 01:00] VITALS: BP 145/96
[2017-05-22 06:30] VITALS: BP 134/74
[2017-05-22] MEDS: LEVOTHYROXINE SODIUM 50 MCG TABLET PO SCH (06:52)
[2017-05-22 08:21] VITALS: BP 147/93
[2017-05-22] MEDS: DABIGATRAN ETEXILATE MESYLATE 150 MG CAPSULE PO SCH ×2 (08:29→16:31)
[2017-05-22] MEDS: DOCUSATE SODIUM 100 MG CAPSULE PO SCH (08:30)
[2017-05-22] MEDS: METOPROLOL TARTRATE 50 MG TABLET PO SCH ×2 (08:30→16:31)
[2017-05-22] MEDS: MULTIVITAMINS, THERAPEUTIC TABLET PO SCH (08:31)
[2017-05-22] MEDS: OMEPRAZOLE 20 MG CAPSULE PO SCH (08:31)
[2017-05-22] MEDS: RisperiDONE 1 MG TABLET PO SCH ×2 (08:31→16:31)
[2017-05-22] MEDS: AmLODIPine BESYLATE 5 MG TABLET PO SCH (08:32)
[2017-05-22] MEDS: NYSTATIN 30 GM CREAM TP SCH (08:32)
[2017-05-22] MEDS: OMEGA-3/DHA/EPA/FISH OIL 1,000 MG CAPSULE PO SCH (08:32)
[2017-05-22 16:49] VITALS: BP 149/84
[2017-05-22] MEDS: DIVALPROEX SODIUM 500 MG DR TABLET PO SCH (20:40)
[2017-05-22] MEDS: ZOLPIDEM TARTRATE 10 MG TABLET PO PRN (21:06)
[2017-05-23 06:33] VITALS: BP 133/94
[2017-05-23] MEDS: LEVOTHYROXINE SODIUM 50 MCG TABLET PO SCH (06:42)
[2017-05-23 08:16] VITALS: BP 142/73
[2017-05-23 08:36] LABS: ANION GAP 8 mmol/L (8-16); CALCIUM, TOTAL 8.6 mg/dL (8.8-10.5); CARBON DIOXIDE 31 mmol/L (22-29); CHLORIDE 101 mmol/L (98-107); CREATININE 0.85 mg/dL (0.60-1.30); GLOMERULAR FILTR. RATE CALC > 60 mL/min (>60); GLUCOSE,RANDOM 98 mg/dL (70-110); POTASSIUM 3.8 mmol/L (3.5-5.1); SODIUM SERUM 140 mmol/L (136-145); UREA NITROGEN, BLOOD 18 mg/dL (7-18)
[2017-05-23] MEDS ORDERED: OMEGA-3/DHA/EPA/FISH OIL 1,000 MG CAPSULE PO SCH (09:00)
[2017-05-23] MEDS: OMEPRAZOLE 20 MG CAPSULE PO SCH (09:06)
[2017-05-23] MEDS: OMEGA-3/DHA/EPA/FISH OIL 1,000 MG CAPSULE PO SCH (09:06)
[2017-05-23] MEDS: DOCUSATE SODIUM 100 MG CAPSULE PO SCH (09:06)
[2017-05-23] MEDS: RisperiDONE 1 MG TABLET PO SCH ×2 (09:06→16:53)
[2017-05-23] MEDS: MULTIVITAMINS, THERAPEUTIC TABLET PO SCH (09:06)
[2017-05-23] MEDS: AmLODIPine BESYLATE 5 MG TABLET PO SCH (09:06)
[2017-05-23] MEDS: NYSTATIN 30 GM CREAM TP SCH (09:07)
[2017-05-23] MEDS: DABIGATRAN ETEXILATE MESYLATE 150 MG CAPSULE PO SCH ×2 (09:07→16:53)
[2017-05-23] MEDS: METOPROLOL TARTRATE 50 MG TABLET PO SCH ×2 (09:07→16:52)
[2017-05-23 16:14] VITALS: BP 138/81
[2017-05-23] MEDS: DIVALPROEX SODIUM 500 MG DR TABLET PO SCH (20:55)
[2017-05-23] MEDS: ZOLPIDEM TARTRATE 10 MG TABLET PO PRN (21:16)
[2017-05-24 01:32] VITALS: BP 129/80
[2017-05-24] MEDS: LEVOTHYROXINE SODIUM 50 MCG TABLET PO SCH (06:50)
[2017-05-24 08:21] VITALS: BP 135/82
[2017-05-24] MEDS: DABIGATRAN ETEXILATE MESYLATE 150 MG CAPSULE PO SCH ×2 (08:55→16:40)
[2017-05-24] MEDS: AmLODIPine BESYLATE 5 MG TABLET PO SCH (08:56)
[2017-05-24] MEDS: OMEGA-3/DHA/EPA/FISH OIL 1,000 MG CAPSULE PO SCH (08:56)
[2017-05-24] MEDS: DOCUSATE SODIUM 100 MG CAPSULE PO SCH (08:57)
[2017-05-24] MEDS: METOPROLOL TARTRATE 50 MG TABLET PO SCH ×2 (08:57→16:39)
[2017-05-24] MEDS: MULTIVITAMINS, THERAPEUTIC TABLET PO SCH (08:57)
[2017-05-24] MEDS: OMEPRAZOLE 20 MG CAPSULE PO SCH (08:57)
[2017-05-24] MEDS: NYSTATIN 30 GM CREAM TP SCH (08:58)
[2017-05-24] MEDS: RisperiDONE 1 MG TABLET PO SCH ×2 (08:58→16:39)
[2017-05-24 16:10] VITALS: BP 142/84
[2017-05-24] MEDS: DIVALPROEX SODIUM 500 MG DR TABLET PO SCH (20:31)
[2017-05-25] MEDS: LEVOTHYROXINE SODIUM 50 MCG TABLET PO SCH (06:38)
[2017-05-25 06:47] VITALS: BP 135/79
[2017-05-25] MEDS: OMEGA-3/DHA/EPA/FISH OIL 1,000 MG CAPSULE PO SCH (08:13)
[2017-05-25] MEDS: METOPROLOL TARTRATE 50 MG TABLET PO SCH (08:13)
[2017-05-25] MEDS: DABIGATRAN ETEXILATE MESYLATE 150 MG CAPSULE PO SCH (08:13)
[2017-05-25] MEDS: AmLODIPine BESYLATE 5 MG TABLET PO SCH (08:13)
[2017-05-25] MEDS: RisperiDONE 1 MG TABLET PO SCH (08:14)
[2017-05-25] MEDS: OMEPRAZOLE 20 MG CAPSULE PO SCH (08:14)
[2017-05-25] MEDS: MULTIVITAMINS, THERAPEUTIC TABLET PO SCH (08:14)
[2017-05-25] MEDS: DOCUSATE SODIUM 100 MG CAPSULE PO SCH (08:14)
[2017-05-25] MEDS: NYSTATIN 30 GM CREAM TP SCH (08:15)
[2017-05-25 08:30] VITALS: BP 138/84
[2017-05-25] MEDS ORDERED: OMEP20 PO (12:52)
[2017-05-25] MEDS ORDERED: DSS100 PO (12:52)
== END 2017-05-25 15:18 | disposition home or self-care (01) | DRG 885 ==
LOC: EMS 22:28 → B2X 05-20 09:37 → B2S 05-21 13:14 → B2X 05-22 18:41
PROVIDERS: ADMIT Psychiatry & Neurology Psychiatry; ATTEND Psychiatry & Neurology Psychiatry
PROC: 3E0234Z Introduction of Serum, Toxoid and Vaccine into Muscle, Percutaneous Approach (ICD-10-PCS; principal; 2017-05-20)
DX: F25.9 Schizoaffective disorder, unspecified (principal); D69.6 Thrombocytopenia, unspecified; I48.91 Unspecified atrial fibrillation; R45.851 Suicidal ideations; B35.6 Tinea cruris; F17.200 Nicotine dependence, unspecified, uncomplicated; E78.1 Pure hyperglyceridemia; G47.00 Insomnia, unspecified; I10 Essential (primary) hypertension; J44.9 Chronic obstructive pulmonary disease, unspecified; F41.9 Anxiety disorder, unspecified; K21.9 Gastro-esophageal reflux disease without esophagitis; M19.90 Unspecified osteoarthritis, unspecified site; Z91.048 Other nonmedicinal substance allergy status; Z79.899 Other long term (current) drug therapy; Z23 Encounter for immunization
CPT/HCPCS: 82306; 99285; G0480

== ENCOUNTER 2017-05-27 10:49 | Emergency (ER) | payer MEDICARE, MEDICAID ==
[~2017-05-27] VITALS: Ht 180.3 cm; Wt 104.5 kg
[~2017-05-27 10:49] MED LIST changes: +DSS100 PO; -MULT-1203 PO; -OMEG-135 PO
[2017-05-27 12:15] LABS: BASOPHILS % (AUTO) 0.7 % (0.0-2.0); HEMATOCRIT 40.7 % (41-53); HEMOGLOBIN 13.7 g/dL (13.5-17.5); LYMPHOCYTES # (AUTO) 1.9 K/uL (1.0-4.8); LYMPHOCYTES % (AUTO) 28.4 % (22.0-44.0); MEAN CORPUSCULAR HEMOGLOBIN 29.7 pg (26.0-34.0); MEAN CORPUSCULAR HGB CONC 33.6 G/dL (31.0-37.0); MEAN CORPUSCULAR VOLUME 88 fL (80-100); MONOCYTES # (AUTO) 0.9 K/uL (0.1-1.0); NEUTROPHILS # (AUTO) 3.7 K/uL (1.8-7.7); NEUTROPHILS % (AUTO) 55.9 % (40.0-70.0); PLATELET COUNT (AUTO) 231 K/uL (150-450); RED BLOOD CELL COUNT(AUTO) 4.61 MIL/uL (4.50-5.90); RED CELL DISTRIBUTION WIDTH 15.3 % (11.5-14.5)
[2017-05-27 12:30] LABS: ANION GAP 3 mmol/L (8-16); CALCIUM, TOTAL 9.3 mg/dL (8.8-10.5); CARBON DIOXIDE 36 mmol/L (22-29); CHLORIDE 100 mmol/L (98-107); CREATININE 0.99 mg/dL (0.60-1.30); GLOMERULAR FILTR. RATE CALC > 60 mL/min (>60); GLUCOSE,RANDOM 111 mg/dL (70-110); POTASSIUM 4.8 mmol/L (3.5-5.1); SODIUM SERUM 139 mmol/L (136-145); UREA NITROGEN, BLOOD 20 mg/dL (7-18)
[2017-05-27 12:37] LABS: ALANINE AMINOTRANSFERASE 26 U/L (12-78); ALBUMIN 3.9 g/dL (3.4-5.0); ALKALINE PHOSPHATASE 84 U/L (46-116); ASPARTATE AMINOTRANSFERASE 35 U/L (15-37); BILIRUBIN,TOTAL 0.8 mg/dL (0.1-1.0)
[2017-05-27] MEDS ORDERED: LORazepam 2 MG TABLET PO ONE (12:45)
[2017-05-27] MEDS ORDERED: QUEtiapine FUMARATE 25 MG TABLET PO ONE (12:45)
[2017-05-27 13:03] VITALS: BP 135/77
== END 2017-05-27 13:16 | disposition home or self-care (01) ==
LOC: EMS 12:07
DX: F41.9 Anxiety disorder, unspecified (principal); F31.9 Bipolar disorder, unspecified; J44.9 Chronic obstructive pulmonary disease, unspecified; I10 Essential (primary) hypertension; F20.9 Schizophrenia, unspecified; I48.91 Unspecified atrial fibrillation; Z88.8 Allergy status to other drugs, medicaments and biological substances; Z91.011 Allergy to milk products
CPT/HCPCS: 36415; 80053; 85025; 99284; G0480

== ENCOUNTER 2017-05-30 05:12 | Inpatient (IN) | payer OTHER, MEDICAID ==
[~2017-05-30] VITALS: Ht 180.3 cm; Wt 106.8 kg
[2017-05-30] MEDS ORDERED: ZOLPIDEM TARTRATE 10 MG TABLET PO PRN (06:00)
[2017-05-30] MEDS ORDERED: QUEtiapine FUMARATE 100 MG TABLET PO PRN (06:00)
[2017-05-30 06:38] LABS: BASOPHILS % (AUTO) 0.9 % (0.0-2.0); EOSINOPHILS % (AUTO) 1.3 % (1.0-6.0); HEMATOCRIT 36.8 % (41-53); HEMOGLOBIN 12.5 g/dL (13.5-17.5); LYMPHOCYTES # (AUTO) 1.8 K/uL (1.0-4.8); LYMPHOCYTES % (AUTO) 36.1 % (22.0-44.0); MEAN CORPUSCULAR HEMOGLOBIN 30.1 pg (26.0-34.0); MEAN CORPUSCULAR VOLUME 89 fL (80-100); MONOCYTES # (AUTO) 0.8 K/uL (0.1-1.0); MONOCYTES % (AUTO) 16.4 % (2.0-9.0); NEUTROPHILS # (AUTO) 2.3 K/uL (1.8-7.7); NEUTROPHILS % (AUTO) 45.3 % (40.0-70.0); PLATELET COUNT (AUTO) 200 K/uL (150-450); RED BLOOD CELL COUNT(AUTO) 4.15 MIL/uL (4.50-5.90); RED CELL DISTRIBUTION WIDTH 15.1 % (11.5-14.5)
[2017-05-30 07:40] LABS: ANION GAP 7 mmol/L (8-16); CARBON DIOXIDE 32 mmol/L (22-29); CHLORIDE 99 mmol/L (98-107); CREATININE 0.96 mg/dL (0.60-1.30); GLOMERULAR FILTR. RATE CALC > 60 mL/min (>60); GLUCOSE,RANDOM 123 mg/dL (70-110); SODIUM SERUM 138 mmol/L (136-145); UREA NITROGEN, BLOOD 12 mg/dL (7-18)
[2017-05-30 07:46] LABS: ALANINE AMINOTRANSFERASE 29 U/L (12-78); ALBUMIN 3.6 g/dL (3.4-5.0); ALKALINE PHOSPHATASE 81 U/L (46-116); ASPARTATE AMINOTRANSFERASE 38 U/L (15-37); BILIRUBIN,TOTAL 0.5 mg/dL (0.1-1.0); TOTAL PROTEIN, SERUM 7.4 g/dL (6.4-8.2)
[2017-05-30] MEDS ORDERED: LORazepam 2 MG/ML VIAL IM ONE (09:45)
[2017-05-30] MEDS ORDERED: DENTURE ADHESIVE 68 GM CREAM DT PRN (17:15)
[2017-05-30 17:18] VITALS: BP 166/87
[2017-05-30] MEDS: LORazepam 2 MG TABLET PO PRN (21:10)
[2017-05-30] MEDS: DIVALPROEX SODIUM 500 MG DR TABLET PO SCH (21:52)
[2017-05-30] MEDS: RisperiDONE 1 MG TABLET PO SCH (21:52)
[2017-05-31] MEDS: LEVOTHYROXINE SODIUM 50 MCG TABLET PO SCH (05:59)
[2017-05-31] MEDS ORDERED: ALBUTEROL SULFATE HFA 90 MCG/PUFF 8 GM INHALER IH PRN (08:30)
[2017-05-31] MEDS ORDERED: ACETAMINOPHEN 325 MG TABLET PO PRN (08:30)
[2017-05-31] MEDS ORDERED: MAG HYDROX/AL HYDROX/SIMETH ES 30 ML SUSPENSION UDCUP PO PRN (08:30)
[2017-05-31] MEDS ORDERED: BACITRACIN 28.4 GM OINTMENT TP PRN (08:30)
[2017-05-31] MEDS ORDERED: PETROLATUM,WHITE 71 GM JELLY TP PRN (08:30)
[2017-05-31] MEDS ORDERED: IBUPROFEN 600 MG TABLET PO PRN (08:30)
[2017-05-31] MEDS ORDERED: MAGNESIUM HYDROXIDE SUSPENSION 30 ML UDCUP PO PRN (08:30)
[2017-05-31] MEDS ORDERED: CloNIDine HCL 0.1 MG TABLET PO PRN (08:30)
[2017-05-31] MEDS: DABIGATRAN ETEXILATE MESYLATE 150 MG CAPSULE PO SCH ×2 (08:34→16:25)
[2017-05-31] MEDS: OMEPRAZOLE 20 MG CAPSULE PO SCH (08:34)
[2017-05-31] MEDS: DOCUSATE SODIUM 100 MG CAPSULE PO SCH (08:34)
[2017-05-31] MEDS: MULTIVITAMINS, THERAPEUTIC TABLET PO SCH (08:34)
[2017-05-31] MEDS: AmLODIPine BESYLATE 5 MG TABLET PO SCH (08:34)
[2017-05-31] MEDS: METOPROLOL TARTRATE 50 MG TABLET PO SCH ×2 (08:34→16:25)
[2017-05-31] MEDS: RisperiDONE 1 MG TABLET PO SCH ×2 (08:34→16:25)
[2017-05-31] MEDS ORDERED: BENZOCAINE/MENTHOL LOZENGE [8 LOZENGES/PACKET] MM PRN (08:45)
[2017-05-31 09:57] VITALS: BP 116/86
[2017-05-31] MEDS: MICONAZOLE NITRATE 2% 30 GM CREAM TP SCH ×2 (09:57→16:25)
[2017-05-31 16:01] VITALS: BP 160/90
[2017-05-31] MEDS: DIVALPROEX SODIUM 500 MG DR TABLET PO SCH (20:29)
[2017-06-01 00:13] VITALS: BP 144/97
[2017-06-01] MEDS: LEVOTHYROXINE SODIUM 50 MCG TABLET PO SCH (06:02)
[2017-06-01 08:12] VITALS: BP 138/76
[2017-06-01] MEDS: DABIGATRAN ETEXILATE MESYLATE 150 MG CAPSULE PO SCH ×2 (08:31→16:32)
[2017-06-01] MEDS: OMEPRAZOLE 20 MG CAPSULE PO SCH (08:32)
[2017-06-01] MEDS: RisperiDONE 1 MG TABLET PO SCH ×2 (08:32→16:31)
[2017-06-01] MEDS: MULTIVITAMINS, THERAPEUTIC TABLET PO SCH (08:32)
[2017-06-01] MEDS: LORazepam 2 MG TABLET PO PRN ×2 (08:32→19:20)
[2017-06-01] MEDS: DOCUSATE SODIUM 100 MG CAPSULE PO SCH (08:32)
[2017-06-01] MEDS: METOPROLOL TARTRATE 50 MG TABLET PO SCH ×2 (08:32→16:31)
[2017-06-01] MEDS: MICONAZOLE NITRATE 2% 30 GM CREAM TP SCH ×2 (08:32→16:35)
[2017-06-01] MEDS: AmLODIPine BESYLATE 5 MG TABLET PO SCH (08:32)
[2017-06-01 17:20] VITALS: BP 161/100
[2017-06-01] MEDS: FUROSEMIDE 40 MG TABLET PO SCH (17:34)
[2017-06-01] MEDS: DIVALPROEX SODIUM 500 MG DR TABLET PO SCH (20:13)
[2017-06-01] MEDS ORDERED: HALOPERIDOL LACTATE 5 MG/ML VIAL ONE (20:19)
[2017-06-01] MEDS ORDERED: LORazepam 2 MG/ML VIAL ONE (20:19)
[2017-06-01] MEDS ORDERED: HALOPERIDOL LACTATE 5 MG/ML VIAL IM ONE (20:30)
[2017-06-01] MEDS ORDERED: LORazepam 2 MG/ML VIAL IM ONE (20:30)
[2017-06-01] MEDS ORDERED: FluPHENAZine HCL 2.5 MG/ML INJ IM ONE (20:30)
[2017-06-01 21:20] VITALS: BP 131/107
[2017-06-01 21:36] VITALS: BP 131/107
[2017-06-01 22:52] VITALS: BP 135/83
[2017-06-02 07:04] VITALS: BP 135/98
[2017-06-02] MEDS: LEVOTHYROXINE SODIUM 50 MCG TABLET PO SCH (07:24)
[2017-06-02 08:00] VITALS: BP 135/68
[2017-06-02] MEDS: RisperiDONE 1 MG TABLET PO SCH ×2 (08:55→16:04)
[2017-06-02] MEDS: DABIGATRAN ETEXILATE MESYLATE 150 MG CAPSULE PO SCH ×2 (08:55→16:04)
[2017-06-02] MEDS: OMEPRAZOLE 20 MG CAPSULE PO SCH (08:55)
[2017-06-02] MEDS: AmLODIPine BESYLATE 5 MG TABLET PO SCH (08:55)
[2017-06-02] MEDS: DOCUSATE SODIUM 100 MG CAPSULE PO SCH (08:55)
[2017-06-02] MEDS: MULTIVITAMINS, THERAPEUTIC TABLET PO SCH (08:55)
[2017-06-02] MEDS: METOPROLOL TARTRATE 50 MG TABLET PO SCH ×2 (08:55→16:04)
[2017-06-02] MEDS: FUROSEMIDE 40 MG TABLET PO SCH (08:55)
[2017-06-02] MEDS: MICONAZOLE NITRATE 2% 30 GM CREAM TP SCH ×2 (08:56→16:05)
[2017-06-02] MEDS: LORazepam 2 MG TABLET PO PRN (16:05)
[2017-06-02] MEDS: DIVALPROEX SODIUM 500 MG DR TABLET PO SCH (20:02)
[2017-06-02 21:37] VITALS: BP 144/88
[2017-06-03 05:23] VITALS: BP 140/100
[2017-06-03] MEDS: LEVOTHYROXINE SODIUM 50 MCG TABLET PO SCH (07:09)
[2017-06-03 08:00] VITALS: BP 140/100
[2017-06-03] MEDS: RisperiDONE 1 MG TABLET PO SCH ×2 (08:54→16:02)
[2017-06-03] MEDS: AmLODIPine BESYLATE 5 MG TABLET PO SCH (08:54)
[2017-06-03] MEDS: OMEPRAZOLE 20 MG CAPSULE PO SCH (08:54)
[2017-06-03] MEDS: DOCUSATE SODIUM 100 MG CAPSULE PO SCH (08:54)
[2017-06-03] MEDS: DABIGATRAN ETEXILATE MESYLATE 150 MG CAPSULE PO SCH ×2 (08:55→16:00)
[2017-06-03] MEDS: MULTIVITAMINS, THERAPEUTIC TABLET PO SCH (08:55)
[2017-06-03] MEDS: FUROSEMIDE 40 MG TABLET PO SCH (08:55)
[2017-06-03] MEDS: MICONAZOLE NITRATE 2% 30 GM CREAM TP SCH ×2 (08:55→16:00)
[2017-06-03] MEDS: METOPROLOL TARTRATE 50 MG TABLET PO SCH ×2 (08:55→16:00)
[2017-06-03] MEDS: LORazepam 2 MG TABLET PO PRN (18:17)
[2017-06-03 20:12] VITALS: BP 135/89
[2017-06-03] MEDS: DIVALPROEX SODIUM 500 MG DR TABLET PO SCH (20:28)
[2017-06-04 00:45] VITALS: BP 153/67
[2017-06-04] MEDS: LEVOTHYROXINE SODIUM 50 MCG TABLET PO SCH (06:18)
[2017-06-04] MEDS ORDERED: FURO40 PO (07:54)
[2017-06-04] MEDS ORDERED: MV-M1TAB2 PO (07:54)
[2017-06-04] MEDS: RisperiDONE 1 MG TABLET PO SCH (08:42)
[2017-06-04] MEDS: DOCUSATE SODIUM 100 MG CAPSULE PO SCH (08:42)
[2017-06-04] MEDS: OMEPRAZOLE 20 MG CAPSULE PO SCH (08:42)
[2017-06-04] MEDS: MULTIVITAMINS, THERAPEUTIC TABLET PO SCH (08:42)
[2017-06-04] MEDS: FUROSEMIDE 40 MG TABLET PO SCH (08:43)
[2017-06-04] MEDS: METOPROLOL TARTRATE 50 MG TABLET PO SCH (08:43)
[2017-06-04] MEDS: AmLODIPine BESYLATE 5 MG TABLET PO SCH (08:43)
[2017-06-04] MEDS: DABIGATRAN ETEXILATE MESYLATE 150 MG CAPSULE PO SCH (08:43)
[2017-06-04] MEDS: MICONAZOLE NITRATE 2% 30 GM CREAM TP SCH (08:47)
[2017-06-04 09:40] VITALS: BP 149/80
== END 2017-06-04 10:20 | disposition home or self-care (01) | DRG 885 ==
LOC: EMS 05:14 → 3EX 13:52 → 3EI 05-31 22:41 → 3EX 05-31 22:50
PROVIDERS: ADMIT Psychiatry & Neurology Psychiatry; ATTEND Psychiatry & Neurology Psychiatry
DX: F25.9 Schizoaffective disorder, unspecified (principal); F22 Delusional disorders; I48.91 Unspecified atrial fibrillation; B35.6 Tinea cruris; E55.9 Vitamin D deficiency, unspecified; F10.10 Alcohol abuse, uncomplicated; E78.1 Pure hyperglyceridemia; E78.5 Hyperlipidemia, unspecified; Z71.41 Alcohol abuse counseling and surveillance of alcoholic; F17.200 Nicotine dependence, unspecified, uncomplicated; Z71.6 Tobacco abuse counseling; F31.9 Bipolar disorder, unspecified; G40.909 Epilepsy, unspecified, not intractable, without status epilepticus; G47.00 Insomnia, unspecified; I10 Essential (primary) hypertension; J44.9 Chronic obstructive pulmonary disease, unspecified; K21.9 Gastro-esophageal reflux disease without esophagitis; M19.90 Unspecified osteoarthritis, unspecified site; Z88.8 Allergy status to other drugs, medicaments and biological substances
CPT/HCPCS: 87081; 96372; 99285; G0480; J1630; J2060; J3490

== ENCOUNTER 2017-07-08 16:30 | Emergency (ER) | payer MEDICARE, MEDICAID ==
[~2017-07-08] VITALS: Ht 180.3 cm; Wt 136.2 kg
[~2017-07-08 16:30] MED LIST changes: +CEPH500 PO; +FURO40 PO; +MV-M1TAB2 PO; +SULF1TAB42 PO; +VITAD1000 PO
[2017-07-08 19:55] VITALS: BP 122/95
== END 2017-07-08 20:06 | disposition home or self-care (01) ==
LOC: EMS 16:31
DX: M54.5 Low back pain (principal); M54.2 Cervicalgia; I48.91 Unspecified atrial fibrillation; J44.9 Chronic obstructive pulmonary disease, unspecified; I10 Essential (primary) hypertension; Z88.8 Allergy status to other drugs, medicaments and biological substances; Z91.011 Allergy to milk products; W01.0XXA Fall on same level from slipping, tripping and stumbling without subsequent striking against object, initial encounter; Y93.01 Activity, walking, marching and hiking; Y92.89 Other specified places as the place of occurrence of the external cause; Y99.8 Other external cause status
CPT/HCPCS: 70450; 72125; 72170; 99284

== ENCOUNTER 2017-07-28 20:10 | Emergency (ER) | payer MEDICARE, MEDICAID ==
[~2017-07-28] VITALS: Ht 177.8 cm; Wt 113.6 kg
[2017-07-28 21:03] LABS: BASOPHILS % (AUTO) 0.7 % (0.0-2.0); HEMATOCRIT 36.2 % (41-53); HEMOGLOBIN 12.3 g/dL (13.5-17.5); LYMPHOCYTES # (AUTO) 2.1 K/uL (1.0-4.8); LYMPHOCYTES % (AUTO) 28.7 % (22.0-44.0); MEAN CORPUSCULAR HEMOGLOBIN 30.3 pg (26.0-34.0); MEAN CORPUSCULAR HGB CONC 33.9 G/dL (31.0-37.0); MEAN CORPUSCULAR VOLUME 89 fL (80-100); MONOCYTES % (AUTO) 13.2 % (2.0-9.0); NEUTROPHILS # (AUTO) 4.1 K/uL (1.8-7.7); NEUTROPHILS % (AUTO) 55.4 % (40.0-70.0); PLATELET COUNT (AUTO) 247 K/uL (150-450); RED BLOOD CELL COUNT(AUTO) 4.06 MIL/uL (4.50-5.90); RED CELL DISTRIBUTION WIDTH 14.6 % (11.5-14.5)
[2017-07-28 21:13] LABS: ANION GAP 4 mmol/L (8-16); CARBON DIOXIDE 32 mmol/L (22-29); CHLORIDE 101 mmol/L (98-107); CREATININE 1.05 mg/dL (0.60-1.30); GLOMERULAR FILTR. RATE CALC > 60 mL/min (>60); GLUCOSE,RANDOM 104 mg/dL (70-110); SODIUM SERUM 137 mmol/L (136-145); UREA NITROGEN, BLOOD 18 mg/dL (7-18)
[2017-07-28 21:14] LABS: AMPHET/METH SCREEN,URINE NEGATIVE (NEGATIVE); BARBITURATE SCREEN, URINE NEGATIVE (NEGATIVE); BENZODIAZEPINES SCREEN,URINE NEGATIVE (NEGATIVE); CANNABINOID SCREEN,URINE NEGATIVE (NEGATIVE); COCAINE SCREEN,URINE NEGATIVE (NEGATIVE); METHADONE SCREEN, URINE NEGATIVE (NEGATIVE); OPIATE SCREEN,URINE NEGATIVE (NEGATIVE); PHENCYCLIDINE SCREEN,URINE NEGATIVE (NEGATIVE)
[2017-07-28 21:18] LABS: ALANINE AMINOTRANSFERASE 31 U/L (12-78); ALBUMIN 3.4 g/dL (3.4-5.0); ALKALINE PHOSPHATASE 91 U/L (46-116); ASPARTATE AMINOTRANSFERASE 31 U/L (15-37); BILIRUBIN,TOTAL 0.5 mg/dL (0.1-1.0); TOTAL PROTEIN, SERUM 7.2 g/dL (6.4-8.2)
[2017-07-28 21:21] VITALS: BP 131/81
== END 2017-07-28 21:41 | disposition home or self-care (01) ==
LOC: EMS 20:11
DX: S80.02XA Contusion of left knee, initial encounter (principal); S80.01XA Contusion of right knee, initial encounter; S60.511A Abrasion of right hand, initial encounter; F25.9 Schizoaffective disorder, unspecified; I48.91 Unspecified atrial fibrillation; F41.9 Anxiety disorder, unspecified; I10 Essential (primary) hypertension; J44.9 Chronic obstructive pulmonary disease, unspecified; Z79.01 Long term (current) use of anticoagulants; Z79.899 Other long term (current) drug therapy; Z88.8 Allergy status to other drugs, medicaments and biological substances; X58.XXXA Exposure to other specified factors, initial encounter; Y93.89 Activity, other specified; Y92.89 Other specified places as the place of occurrence of the external cause; Y99.8 Other external cause status
CPT/HCPCS: 36415; 80053; 80307; 85025; 99284; G0480

== ENCOUNTER 2017-07-28 22:54 | Emergency (ER) | payer MEDICARE, MEDICAID ==
[~2017-07-28] VITALS: Ht 175.3 cm; Wt 100.0 kg
[2017-07-29 04:00] VITALS: BP 133/83
[2017-07-29] MEDS ORDERED: DIVALPROEX SODIUM 500 MG ER TABLET PO ONE (04:30)
[2017-07-29] MEDS ORDERED: RisperiDONE 1 MG TABLET PO ONE (04:30)
[2017-07-29] MEDS ORDERED: METOPROLOL TARTRATE 50 MG TABLET PO ONE (04:30)
[2017-07-29] MEDS ORDERED: DABIGATRAN ETEXILATE MESYLATE 150 MG CAPSULE PO ONE (04:30)
== END 2017-07-29 06:15 | disposition home or self-care (01) ==
LOC: EMS 22:56
DX: F25.9 Schizoaffective disorder, unspecified (principal); F41.9 Anxiety disorder, unspecified; I10 Essential (primary) hypertension; J44.9 Chronic obstructive pulmonary disease, unspecified; Z79.01 Long term (current) use of anticoagulants; Z79.899 Other long term (current) drug therapy; Z88.8 Allergy status to other drugs, medicaments and biological substances
CPT/HCPCS: 99284

== ENCOUNTER 2017-11-20 20:50 | Inpatient (IN) | payer MEDICARE, MEDICAID ==
[~2017-11-20] VITALS: Ht 175.3 cm; Wt 105.2 kg
[~2017-11-20 20:50] MED LIST changes: -CEPH500 PO; +DIVA-78 PO; -DIVA500T35 PO; -SULF1TAB42 PO
[2017-11-20] MEDS ORDERED: CARB1TAB41 PO (21:19)
[2017-11-20 21:44] LABS: BASOPHILS % (AUTO) 0.8 % (0.0-2.0); EOSINOPHILS % (AUTO) 2.5 % (1.0-6.0); HEMATOCRIT 34.5 % (41-53); LYMPHOCYTES # (AUTO) 2.9 K/uL (1.0-4.8); LYMPHOCYTES % (AUTO) 40.1 % (22.0-44.0); MEAN CORPUSCULAR HEMOGLOBIN 29.9 pg (26.0-34.0); MEAN CORPUSCULAR HGB CONC 34.8 G/dL (31.0-37.0); MEAN CORPUSCULAR VOLUME 86 fL (80-100); MONOCYTES # (AUTO) 0.8 K/uL (0.1-1.0); MONOCYTES % (AUTO) 10.8 % (2.0-9.0); NEUTROPHILS # (AUTO) 3.3 K/uL (1.8-7.7); NEUTROPHILS % (AUTO) 45.8 % (40.0-70.0); PLATELET COUNT (AUTO) 181 K/uL (150-450); RED BLOOD CELL COUNT(AUTO) 4.02 MIL/uL (4.50-5.90); RED CELL DISTRIBUTION WIDTH 15.1 % (11.5-14.5)
[2017-11-20 21:51] LABS: ANION GAP 6 mmol/L (8-16); CALCIUM, TOTAL 8.7 mg/dL (8.8-10.5); CARBON DIOXIDE 31 mmol/L (22-29); CHLORIDE 96 mmol/L (98-107); CREATININE 1.04 mg/dL (0.60-1.30); GLOMERULAR FILTR. RATE CALC > 60 mL/min (>60); GLUCOSE,RANDOM 100 mg/dL (70-110); POTASSIUM 3.9 mmol/L (3.5-5.1); SODIUM SERUM 133 mmol/L (136-145); UREA NITROGEN, BLOOD 12 mg/dL (7-18)
[2017-11-20 21:57] LABS: ALANINE AMINOTRANSFERASE 7 U/L (12-78); ALBUMIN 3.3 g/dL (3.4-5.0); ALKALINE PHOSPHATASE 73 U/L (46-116); ASPARTATE AMINOTRANSFERASE 14 U/L (15-37); BILIRUBIN,TOTAL 0.3 mg/dL (0.1-1.0); TOTAL PROTEIN, SERUM 6.8 g/dL (6.4-8.2)
[2017-11-20] MEDS ORDERED: OLANZapine 5 MG RAPDIS TABLET PO PRN (22:30)
[2017-11-20 22:40] LABS: APPEARANCE,URINE CLEAR (CLEAR); BILIRUBIN,URINE NEGATIVE (NEGATIVE); GLUCOSE, URINE (UA) NEGATIVE (NEGATIVE); KETONES,URINE NEGATIVE (NEGATIVE); LEUKOCYTE ESTERASE ,URINE NEGATIVE (NEGATIVE); NITRATE,URINE NEGATIVE (NEGATIVE); OCCULT BLOOD,URINE NEGATIVE (NEGATIVE); PROTEIN,URINE NEGATIVE (NEGATIVE)
[2017-11-20 22:46] LABS: AMPHET/METH SCREEN,URINE NEGATIVE (NEGATIVE); BARBITURATE SCREEN, URINE NEGATIVE (NEGATIVE); BENZODIAZEPINES SCREEN,URINE NEGATIVE (NEGATIVE); CANNABINOID SCREEN,URINE NEGATIVE (NEGATIVE); COCAINE SCREEN,URINE NEGATIVE (NEGATIVE); METHADONE SCREEN, URINE NEGATIVE (NEGATIVE); OPIATE SCREEN,URINE NEGATIVE (NEGATIVE)
[2017-11-20 22:48] LABS: PHENCYCLIDINE SCREEN,URINE NEGATIVE (NEGATIVE)
[2017-11-21 01:45] VITALS: BP 143/88
[2017-11-21] MEDS: ZOLPIDEM TARTRATE 10 MG TABLET PO PRN (01:58)
[2017-11-21] MEDS: LORazepam 2 MG TABLET PO PRN (01:58)
[2017-11-21] MEDS ORDERED: MAG HYDROX/AL HYDROX/SIMETH ES 30 ML SUSPENSION UDCUP PO PRN (05:30)
[2017-11-21] MEDS ORDERED: IBUPROFEN 600 MG TABLET PO PRN (05:30)
[2017-11-21] MEDS ORDERED: ACETAMINOPHEN 325 MG TABLET PO PRN (05:30)
[2017-11-21] MEDS ORDERED: PETROLATUM,WHITE 71 GM JELLY TP PRN (05:30)
[2017-11-21] MEDS ORDERED: ONDANSETRON HCL 4 MG TABLET PO PRN (05:30)
[2017-11-21] MEDS ORDERED: MAGNESIUM HYDROXIDE SUSPENSION 30 ML UDCUP PO PRN (05:30)
[2017-11-21] MEDS ORDERED: BACITRACIN 28.4 GM OINTMENT TP PRN (05:30)
[2017-11-21] MEDS ORDERED: ALBUTEROL SULFATE HFA 90 MCG/PUFF 8 GM INHALER IH PRN (05:30)
[2017-11-21] MEDS ORDERED: BENZOCAINE/MENTHOL LOZENGE MM PRN (05:30)
[2017-11-21] MEDS ORDERED: CloNIDine HCL 0.1 MG TABLET PO PRN (05:30)
[2017-11-21 08:29] LABS: BASOPHILS % (AUTO) 0.6 % (0.0-2.0); EOSINOPHILS % (AUTO) 2.5 % (1.0-6.0); HEMATOCRIT 36.9 % (41-53); HEMOGLOBIN 12.7 g/dL (13.5-17.5); LYMPHOCYTES # (AUTO) 1.8 K/uL (1.0-4.8); LYMPHOCYTES % (AUTO) 38.5 % (22.0-44.0); MEAN CORPUSCULAR HEMOGLOBIN 30.1 pg (26.0-34.0); MEAN CORPUSCULAR HGB CONC 34.5 G/dL (31.0-37.0); MEAN CORPUSCULAR VOLUME 87 fL (80-100); MONOCYTES # (AUTO) 0.5 K/uL (0.1-1.0); MONOCYTES % (AUTO) 11.1 % (2.0-9.0); NEUTROPHILS # (AUTO) 2.3 K/uL (1.8-7.7); NEUTROPHILS % (AUTO) 47.3 % (40.0-70.0); PLATELET COUNT (AUTO) 196 K/uL (150-450); RED BLOOD CELL COUNT(AUTO) 4.22 MIL/uL (4.50-5.90); RED CELL DISTRIBUTION WIDTH 14.8 % (11.5-14.5)
[2017-11-21 08:39] VITALS: BP 139/89
[2017-11-21 08:43] LABS: HEMOGLOBIN A1C 5.8 % (4.5-6.2)
[2017-11-21 08:49] LABS: ALANINE AMINOTRANSFERASE 13 U/L (12-78); ALBUMIN 3.2 g/dL (3.4-5.0); ALKALINE PHOSPHATASE 69 U/L (46-116); ANION GAP 2 mmol/L (8-16); ASPARTATE AMINOTRANSFERASE 14 U/L (15-37); BILIRUBIN,TOTAL 0.3 mg/dL (0.1-1.0); CALCIUM, TOTAL 8.9 mg/dL (8.8-10.5); CARBON DIOXIDE 34 mmol/L (22-29); CHLORIDE 102 mmol/L (98-107); CHOL/HDL RATIO 4.1 (4.2-7.3); CHOLESTEROL 139 mg/dL (131-200); CREATININE 0.95 mg/dL (0.60-1.30); GLOMERULAR FILTR. RATE CALC > 60 mL/min (>60); GLUCOSE,RANDOM 100 mg/dL (70-110); HDL CHOLESTEROL 34 mg/dL (40-60); LDL CHOL (CALC.) 70 mg/dL (0-130); POTASSIUM 3.7 mmol/L (3.5-5.1); SODIUM SERUM 138 mmol/L (136-145); TOTAL PROTEIN, SERUM 6.8 g/dL (6.4-8.2); TRIGLYCERIDES 175 mg/dL (15-150); UREA NITROGEN, BLOOD 13 mg/dL (7-18); VALPROIC ACID 95 mcg/mL (50-100)
[2017-11-21] MEDS: OMEPRAZOLE 20 MG CAPSULE PO SCH (08:57)
[2017-11-21] MEDS: DOCUSATE SODIUM 100 MG CAPSULE PO SCH (08:57)
[2017-11-21 16:08] VITALS: BP 140/83
[2017-11-21] MEDS: DIVALPROEX SODIUM 500 MG DR TABLET PO SCH (20:37)
[2017-11-21] MEDS ORDERED: DIVALPROEX SODIUM 500 MG DR TABLET PO SCH (21:00)
[2017-11-22 00:37] VITALS: BP 117/73
[2017-11-22] MEDS: LEVOTHYROXINE SODIUM 50 MCG TABLET PO SCH (05:52)
[2017-11-22 08:16] VITALS: BP 139/69
[2017-11-22] MEDS: DABIGATRAN ETEXILATE MESYLATE 150 MG CAPSULE PO SCH ×2 (08:35→16:40)
[2017-11-22] MEDS: RisperiDONE 2 MG TABLET PO SCH ×2 (08:35→16:40)
[2017-11-22] MEDS: AmLODIPine BESYLATE 5 MG TABLET PO SCH (08:35)
[2017-11-22] MEDS: FUROSEMIDE 40 MG TABLET PO SCH ×2 (08:35→16:40)
[2017-11-22] MEDS: CHOLECALCIFEROL (VIT D3) 1,000 UNITS TABLET PO SCH (08:35)
[2017-11-22] MEDS: METOPROLOL TARTRATE 50 MG TABLET PO SCH ×2 (08:35→16:40)
[2017-11-22] MEDS: DOCUSATE SODIUM 100 MG CAPSULE PO SCH (08:35)
[2017-11-22] MEDS: MULTIVITAMINS WITH MINERALS, THERAPEUTIC TABLET PO SCH (08:35)
[2017-11-22] MEDS: CARBIDOPA/LEVODOPA 25-100 MG ER TABLET PO SCH ×3 (08:35→16:40)
[2017-11-22] MEDS: OMEPRAZOLE 20 MG CAPSULE PO SCH (08:35)
[2017-11-22 09:19] LABS: INR 1.1 (0.9-1.1)
[2017-11-22 16:07] VITALS: BP 113/80
[2017-11-22] MEDS: LORazepam 2 MG TABLET PO PRN (18:51)
[2017-11-22] MEDS: DIVALPROEX SODIUM 500 MG DR TABLET PO SCH (20:36)
[2017-11-22] MEDS: ZOLPIDEM TARTRATE 10 MG TABLET PO PRN (20:58)
[2017-11-23 05:29] VITALS: BP 124/82
[2017-11-23] MEDS: LEVOTHYROXINE SODIUM 50 MCG TABLET PO SCH (07:08)
[2017-11-23 08:34] VITALS: BP 142/77
[2017-11-23] MEDS: METOPROLOL TARTRATE 50 MG TABLET PO SCH ×2 (08:49→16:35)
[2017-11-23] MEDS: DABIGATRAN ETEXILATE MESYLATE 150 MG CAPSULE PO SCH ×2 (08:49→16:35)
[2017-11-23] MEDS: MULTIVITAMINS WITH MINERALS, THERAPEUTIC TABLET PO SCH (08:49)
[2017-11-23] MEDS: AmLODIPine BESYLATE 5 MG TABLET PO SCH (08:49)
[2017-11-23] MEDS: RisperiDONE 2 MG TABLET PO SCH ×2 (08:49→16:35)
[2017-11-23] MEDS: CARBIDOPA/LEVODOPA 25-100 MG ER TABLET PO SCH ×3 (08:49→16:35)
[2017-11-23] MEDS: OMEPRAZOLE 20 MG CAPSULE PO SCH (08:49)
[2017-11-23] MEDS: CHOLECALCIFEROL (VIT D3) 1,000 UNITS TABLET PO SCH (08:49)
[2017-11-23] MEDS: FUROSEMIDE 40 MG TABLET PO SCH ×2 (08:49→16:35)
[2017-11-23] MEDS: DOCUSATE SODIUM 100 MG CAPSULE PO SCH (08:49)
[2017-11-23 16:13] VITALS: BP 122/78
[2017-11-23] MEDS: DIVALPROEX SODIUM 500 MG DR TABLET PO SCH (20:37)
[2017-11-24 01:28] VITALS: BP 118/76
[2017-11-24] MEDS: LEVOTHYROXINE SODIUM 50 MCG TABLET PO SCH (06:42)
[2017-11-24 08:15] VITALS: BP 152/79
[2017-11-24] MEDS: RisperiDONE 2 MG TABLET PO SCH ×2 (08:18→16:33)
[2017-11-24] MEDS: DOCUSATE SODIUM 100 MG CAPSULE PO SCH (08:18)
[2017-11-24] MEDS: METOPROLOL TARTRATE 50 MG TABLET PO SCH ×2 (08:18→16:33)
[2017-11-24] MEDS: OMEPRAZOLE 20 MG CAPSULE PO SCH (08:18)
[2017-11-24] MEDS: AmLODIPine BESYLATE 5 MG TABLET PO SCH (08:18)
[2017-11-24] MEDS: FUROSEMIDE 40 MG TABLET PO SCH ×2 (08:18→16:33)
[2017-11-24] MEDS: CARBIDOPA/LEVODOPA 25-100 MG ER TABLET PO SCH ×3 (08:18→16:33)
[2017-11-24] MEDS: MULTIVITAMINS WITH MINERALS, THERAPEUTIC TABLET PO SCH (08:18)
[2017-11-24] MEDS: DABIGATRAN ETEXILATE MESYLATE 150 MG CAPSULE PO SCH ×2 (08:18→16:33)
[2017-11-24] MEDS: CHOLECALCIFEROL (VIT D3) 1,000 UNITS TABLET PO SCH (08:18)
[2017-11-24 09:30] VITALS: BP 131/74
[2017-11-24 16:24] VITALS: BP 133/81
[2017-11-24] MEDS: DIVALPROEX SODIUM 500 MG DR TABLET PO SCH (20:36)
[2017-11-25 00:10] VITALS: BP 118/64
[2017-11-25] MEDS: LEVOTHYROXINE SODIUM 50 MCG TABLET PO SCH (06:42)
[2017-11-25 08:32] VITALS: BP 137/78
[2017-11-25] MEDS: MULTIVITAMINS WITH MINERALS, THERAPEUTIC TABLET PO SCH (08:43)
[2017-11-25] MEDS: RisperiDONE 2 MG TABLET PO SCH ×2 (08:43→16:07)
[2017-11-25] MEDS: CARBIDOPA/LEVODOPA 25-100 MG ER TABLET PO SCH ×3 (08:43→16:07)
[2017-11-25] MEDS: DABIGATRAN ETEXILATE MESYLATE 150 MG CAPSULE PO SCH ×2 (08:43→16:07)
[2017-11-25] MEDS: AmLODIPine BESYLATE 5 MG TABLET PO SCH (08:43)
[2017-11-25] MEDS: METOPROLOL TARTRATE 50 MG TABLET PO SCH ×2 (08:43→16:07)
[2017-11-25] MEDS: DOCUSATE SODIUM 100 MG CAPSULE PO SCH (08:43)
[2017-11-25] MEDS: FUROSEMIDE 40 MG TABLET PO SCH ×2 (08:43→16:07)
[2017-11-25] MEDS: CHOLECALCIFEROL (VIT D3) 1,000 UNITS TABLET PO SCH (08:43)
[2017-11-25] MEDS: OMEPRAZOLE 20 MG CAPSULE PO SCH (08:43)
[2017-11-25 16:07] VITALS: BP 114/70
[2017-11-25] MEDS: DIVALPROEX SODIUM 500 MG DR TABLET PO SCH (20:04)
[2017-11-25] MEDS: ZOLPIDEM TARTRATE 10 MG TABLET PO PRN (22:55)
[2017-11-26] MEDS: LEVOTHYROXINE SODIUM 50 MCG TABLET PO SCH (06:04)
[2017-11-26 06:55] VITALS: BP 136/78
[2017-11-26 08:17] VITALS: BP 140/85
[2017-11-26] MEDS: CARBIDOPA/LEVODOPA 25-100 MG ER TABLET PO SCH ×3 (08:56→16:40)
[2017-11-26] MEDS: CHOLECALCIFEROL (VIT D3) 1,000 UNITS TABLET PO SCH (08:56)
[2017-11-26] MEDS: RisperiDONE 2 MG TABLET PO SCH ×2 (08:56→16:41)
[2017-11-26] MEDS: DABIGATRAN ETEXILATE MESYLATE 150 MG CAPSULE PO SCH ×2 (08:56→16:41)
[2017-11-26] MEDS: AmLODIPine BESYLATE 5 MG TABLET PO SCH (08:57)
[2017-11-26] MEDS: METOPROLOL TARTRATE 50 MG TABLET PO SCH ×2 (08:57→16:41)
[2017-11-26] MEDS: OMEPRAZOLE 20 MG CAPSULE PO SCH (08:57)
[2017-11-26] MEDS: MULTIVITAMINS WITH MINERALS, THERAPEUTIC TABLET PO SCH (08:57)
[2017-11-26] MEDS: FUROSEMIDE 40 MG TABLET PO SCH ×2 (08:57→16:41)
[2017-11-26] MEDS: DOCUSATE SODIUM 100 MG CAPSULE PO SCH (08:57)
[2017-11-26 16:00] VITALS: BP 123/66
[2017-11-26] MEDS: DIVALPROEX SODIUM 500 MG DR TABLET PO SCH (20:35)
[2017-11-26] MEDS: ZOLPIDEM TARTRATE 10 MG TABLET PO PRN (21:36)
[2017-11-27 02:55] VITALS: BP 124/64
[2017-11-27] MEDS: LEVOTHYROXINE SODIUM 50 MCG TABLET PO SCH (06:50)
[2017-11-27] MEDS: DABIGATRAN ETEXILATE MESYLATE 150 MG CAPSULE PO SCH ×2 (08:42→16:36)
[2017-11-27] MEDS: MULTIVITAMINS WITH MINERALS, THERAPEUTIC TABLET PO SCH (08:42)
[2017-11-27] MEDS: METOPROLOL TARTRATE 50 MG TABLET PO SCH ×2 (08:42→16:36)
[2017-11-27] MEDS: CARBIDOPA/LEVODOPA 25-100 MG ER TABLET PO SCH ×3 (08:42→16:36)
[2017-11-27] MEDS: DOCUSATE SODIUM 100 MG CAPSULE PO SCH (08:42)
[2017-11-27] MEDS: RisperiDONE 2 MG TABLET PO SCH ×2 (08:42→16:36)
[2017-11-27] MEDS: CHOLECALCIFEROL (VIT D3) 1,000 UNITS TABLET PO SCH (08:42)
[2017-11-27] MEDS: AmLODIPine BESYLATE 5 MG TABLET PO SCH (08:42)
[2017-11-27] MEDS: FUROSEMIDE 40 MG TABLET PO SCH ×2 (08:42→16:36)
[2017-11-27] MEDS: OMEPRAZOLE 20 MG CAPSULE PO SCH (08:42)
[2017-11-27 09:13] VITALS: BP 136/84
[2017-11-27 16:22] VITALS: BP 118/74
[2017-11-27] MEDS: DIVALPROEX SODIUM 500 MG DR TABLET PO SCH (20:36)
[2017-11-27] MEDS: ZOLPIDEM TARTRATE 10 MG TABLET PO PRN (20:52)
[2017-11-28 00:50] VITALS: BP 130/70
[2017-11-28] MEDS: LEVOTHYROXINE SODIUM 50 MCG TABLET PO SCH (07:03)
[2017-11-28 08:21] VITALS: BP 144/75
[2017-11-28] MEDS: FUROSEMIDE 40 MG TABLET PO SCH ×2 (08:45→16:39)
[2017-11-28] MEDS: METOPROLOL TARTRATE 50 MG TABLET PO SCH ×2 (08:45→16:39)
[2017-11-28] MEDS: DABIGATRAN ETEXILATE MESYLATE 150 MG CAPSULE PO SCH ×2 (09:35→16:38)
[2017-11-28] MEDS: AmLODIPine BESYLATE 5 MG TABLET PO SCH (09:35)
[2017-11-28] MEDS: OMEPRAZOLE 20 MG CAPSULE PO SCH (09:35)
[2017-11-28] MEDS: DOCUSATE SODIUM 100 MG CAPSULE PO SCH (09:35)
[2017-11-28] MEDS: CARBIDOPA/LEVODOPA 25-100 MG ER TABLET PO SCH ×3 (09:36→16:39)
[2017-11-28] MEDS: MULTIVITAMINS WITH MINERALS, THERAPEUTIC TABLET PO SCH (09:36)
[2017-11-28] MEDS: RisperiDONE 2 MG TABLET PO SCH ×2 (09:36→16:39)
[2017-11-28] MEDS: CHOLECALCIFEROL (VIT D3) 1,000 UNITS TABLET PO SCH (09:36)
[2017-11-28 16:40] VITALS: BP 128/78
[2017-11-28] MEDS: DIVALPROEX SODIUM 500 MG DR TABLET PO SCH (20:32)
[2017-11-28] MEDS: ZOLPIDEM TARTRATE 10 MG TABLET PO PRN (21:07)
[2017-11-28 21:48] VITALS: BP 141/83
[2017-11-28] MEDS: LORazepam 2 MG TABLET PO PRN (22:45)
[2017-11-29 00:07] VITALS: BP 129/75
[2017-11-29] MEDS: LEVOTHYROXINE SODIUM 50 MCG TABLET PO SCH (06:37)
[2017-11-29] MEDS: METOPROLOL TARTRATE 50 MG TABLET PO SCH ×2 (08:29→16:34)
[2017-11-29] MEDS: DABIGATRAN ETEXILATE MESYLATE 150 MG CAPSULE PO SCH ×2 (08:29→16:34)
[2017-11-29] MEDS: DOCUSATE SODIUM 100 MG CAPSULE PO SCH (08:29)
[2017-11-29] MEDS: RisperiDONE 2 MG TABLET PO SCH ×2 (08:29→16:34)
[2017-11-29] MEDS: CARBIDOPA/LEVODOPA 25-100 MG ER TABLET PO SCH ×3 (08:29→16:34)
[2017-11-29] MEDS: FUROSEMIDE 40 MG TABLET PO SCH ×2 (08:29→16:34)
[2017-11-29] MEDS: CHOLECALCIFEROL (VIT D3) 1,000 UNITS TABLET PO SCH (08:29)
[2017-11-29] MEDS: AmLODIPine BESYLATE 5 MG TABLET PO SCH (08:29)
[2017-11-29] MEDS: OMEPRAZOLE 20 MG CAPSULE PO SCH (08:29)
[2017-11-29] MEDS: MULTIVITAMINS WITH MINERALS, THERAPEUTIC TABLET PO SCH (08:29)
[2017-11-29 08:33] VITALS: BP 123/72
[2017-11-29 16:08] VITALS: BP 119/68
[2017-11-29] MEDS: DIVALPROEX SODIUM 500 MG DR TABLET PO SCH (20:40)
[2017-11-29] MEDS: ZOLPIDEM TARTRATE 10 MG TABLET PO PRN (21:04)
[2017-11-29] MEDS: LORazepam 2 MG TABLET PO PRN (21:50)
[2017-11-30 00:05] VITALS: BP 129/82
[2017-11-30] MEDS: LEVOTHYROXINE SODIUM 50 MCG TABLET PO SCH (06:23)
[2017-11-30 08:22] VITALS: BP 145/79
[2017-11-30] MEDS: MULTIVITAMINS WITH MINERALS, THERAPEUTIC TABLET PO SCH (08:36)
[2017-11-30] MEDS: FUROSEMIDE 40 MG TABLET PO SCH ×2 (08:36→16:38)
[2017-11-30] MEDS: AmLODIPine BESYLATE 5 MG TABLET PO SCH (08:36)
[2017-11-30] MEDS: CARBIDOPA/LEVODOPA 25-100 MG ER TABLET PO SCH ×3 (08:36→16:38)
[2017-11-30] MEDS: DOCUSATE SODIUM 100 MG CAPSULE PO SCH (08:36)
[2017-11-30] MEDS: RisperiDONE 2 MG TABLET PO SCH ×2 (08:37→16:38)
[2017-11-30] MEDS: OMEPRAZOLE 20 MG CAPSULE PO SCH (08:37)
[2017-11-30] MEDS: DABIGATRAN ETEXILATE MESYLATE 150 MG CAPSULE PO SCH ×2 (08:37→16:38)
[2017-11-30] MEDS: CHOLECALCIFEROL (VIT D3) 1,000 UNITS TABLET PO SCH (08:37)
[2017-11-30] MEDS: METOPROLOL TARTRATE 50 MG TABLET PO SCH ×2 (08:37→16:38)
[2017-11-30 16:13] VITALS: BP 125/79
[2017-11-30] MEDS: LORazepam 2 MG TABLET PO PRN (20:03)
[2017-11-30] MEDS: DIVALPROEX SODIUM 500 MG DR TABLET PO SCH (20:44)
[2017-12-01] MEDS: LEVOTHYROXINE SODIUM 50 MCG TABLET PO SCH (06:04)
[2017-12-01 06:26] VITALS: BP 138/87
[2017-12-01 08:16] VITALS: BP 138/88
[2017-12-01] MEDS: CARBIDOPA/LEVODOPA 25-100 MG ER TABLET PO SCH ×3 (08:28→16:07)
[2017-12-01] MEDS: DOCUSATE SODIUM 100 MG CAPSULE PO SCH (08:29)
[2017-12-01] MEDS: RisperiDONE 2 MG TABLET PO SCH ×2 (08:29→16:07)
[2017-12-01] MEDS: AmLODIPine BESYLATE 5 MG TABLET PO SCH (08:29)
[2017-12-01] MEDS: MULTIVITAMINS WITH MINERALS, THERAPEUTIC TABLET PO SCH (08:29)
[2017-12-01] MEDS: CHOLECALCIFEROL (VIT D3) 1,000 UNITS TABLET PO SCH (08:29)
[2017-12-01] MEDS: METOPROLOL TARTRATE 50 MG TABLET PO SCH ×2 (08:29→16:07)
[2017-12-01] MEDS: DABIGATRAN ETEXILATE MESYLATE 150 MG CAPSULE PO SCH ×2 (08:29→16:07)
[2017-12-01] MEDS: OMEPRAZOLE 20 MG CAPSULE PO SCH (08:29)
[2017-12-01] MEDS: FUROSEMIDE 40 MG TABLET PO SCH ×2 (08:29→16:07)
[2017-12-01 10:04] LABS: APPEARANCE,URINE CLEAR (CLEAR); BILIRUBIN,URINE NEGATIVE (NEGATIVE); GLUCOSE, URINE (UA) NEGATIVE (NEGATIVE); KETONES,URINE NEGATIVE (NEGATIVE); LEUKOCYTE ESTERASE ,URINE NEGATIVE (NEGATIVE); NITRATE,URINE NEGATIVE (NEGATIVE); OCCULT BLOOD,URINE NEGATIVE (NEGATIVE); PROTEIN,URINE NEGATIVE (NEGATIVE); UROBILINOGEN,URINE 0.2 mg/dL (<=1.0)
[2017-12-01 10:26] LABS: BACTERIA,URINE Rare /HPF (None Seen); RBC,URINE None Seen /HPF (0-2); SQUAMOUS EPITHELIAL CELL,UR Rare /LPF (None Seen); WBC,URINE 0-2 /HPF (0-5)
[2017-12-01 16:03] VITALS: BP 131/75
[2017-12-01] MEDS: DIVALPROEX SODIUM 500 MG DR TABLET PO SCH (20:01)
[2017-12-01] MEDS: LORazepam 2 MG TABLET PO PRN (20:38)
[2017-12-02] VITALS (10 sets, daily range): BP systolic 100–145; BP diastolic 60–96
[2017-12-02] MEDS: LEVOTHYROXINE SODIUM 50 MCG TABLET PO SCH (06:58)
[2017-12-02] MEDS: DABIGATRAN ETEXILATE MESYLATE 150 MG CAPSULE PO SCH ×2 (08:44→16:28)
[2017-12-02] MEDS: RisperiDONE 2 MG TABLET PO SCH ×2 (08:44→16:28)
[2017-12-02] MEDS: MULTIVITAMINS WITH MINERALS, THERAPEUTIC TABLET PO SCH (08:44)
[2017-12-02] MEDS: CHOLECALCIFEROL (VIT D3) 1,000 UNITS TABLET PO SCH (08:44)
[2017-12-02] MEDS: AmLODIPine BESYLATE 5 MG TABLET PO SCH (08:44)
[2017-12-02] MEDS: METOPROLOL TARTRATE 50 MG TABLET PO SCH ×2 (08:45→16:28)
[2017-12-02] MEDS: DOCUSATE SODIUM 100 MG CAPSULE PO SCH (08:45)
[2017-12-02] MEDS: CARBIDOPA/LEVODOPA 25-100 MG ER TABLET PO SCH ×3 (08:45→16:28)
[2017-12-02] MEDS: FUROSEMIDE 40 MG TABLET PO SCH ×2 (08:45→16:28)
[2017-12-02] MEDS: OMEPRAZOLE 20 MG CAPSULE PO SCH (08:45)
[2017-12-02] MEDS: OXYBUTYNIN CHLORIDE 5 MG TABLET PO SCH (08:53)
[2017-12-02] MEDS: DIVALPROEX SODIUM 500 MG DR TABLET PO SCH (20:01)
[2017-12-03] VITALS: BP 142/86
[2017-12-03 04:30] VITALS: BP 142/86
[2017-12-03] MEDS: LEVOTHYROXINE SODIUM 50 MCG TABLET PO SCH (06:24)
[2017-12-03 08:23] VITALS: BP 134/67
[2017-12-03] MEDS: OXYBUTYNIN CHLORIDE 5 MG TABLET PO SCH (08:51)
[2017-12-03] MEDS: CARBIDOPA/LEVODOPA 25-100 MG ER TABLET PO SCH ×2 (08:51→12:27)
[2017-12-03] MEDS: RisperiDONE 2 MG TABLET PO SCH (08:51)
[2017-12-03] MEDS: FUROSEMIDE 40 MG TABLET PO SCH (08:51)
[2017-12-03] MEDS: DOCUSATE SODIUM 100 MG CAPSULE PO SCH (08:51)
[2017-12-03] MEDS: DABIGATRAN ETEXILATE MESYLATE 150 MG CAPSULE PO SCH (08:51)
[2017-12-03] MEDS: METOPROLOL TARTRATE 50 MG TABLET PO SCH (08:51)
[2017-12-03] MEDS: MULTIVITAMINS WITH MINERALS, THERAPEUTIC TABLET PO SCH (08:51)
[2017-12-03] MEDS: CHOLECALCIFEROL (VIT D3) 1,000 UNITS TABLET PO SCH (08:51)
[2017-12-03] MEDS: AmLODIPine BESYLATE 5 MG TABLET PO SCH (08:52)
[2017-12-03] MEDS: OMEPRAZOLE 20 MG CAPSULE PO SCH (08:52)
[2017-12-03] MEDS ORDERED: OXYB5 PO (11:07)
== END 2017-12-03 13:35 | DRG 885 ==
LOC: EMS 20:51 → B2X 23:00
PROVIDERS: ADMIT Psychiatry & Neurology Psychiatry; ATTEND Psychiatry & Neurology Psychiatry
DX: F25.9 Schizoaffective disorder, unspecified (principal); R45.851 Suicidal ideations; E55.9 Vitamin D deficiency, unspecified; F17.200 Nicotine dependence, unspecified, uncomplicated; F41.9 Anxiety disorder, unspecified; G20 Parkinson's disease; G47.00 Insomnia, unspecified; I10 Essential (primary) hypertension; I48.91 Unspecified atrial fibrillation; J44.9 Chronic obstructive pulmonary disease, unspecified; K21.9 Gastro-esophageal reflux disease without esophagitis; R32 Unspecified urinary incontinence; M19.90 Unspecified osteoarthritis, unspecified site; F12.90 Cannabis use, unspecified, uncomplicated; G40.909 Epilepsy, unspecified, not intractable, without status epilepticus; F31.9 Bipolar disorder, unspecified; E03.9 Hypothyroidism, unspecified; D64.9 Anemia, unspecified; Z88.8 Allergy status to other drugs, medicaments and biological substances; Z91.011 Allergy to milk products
CPT/HCPCS: 82306; 83036; 84439; 99285; G0480

== ENCOUNTER 2018-04-07 23:14 | Emergency (ER) | payer MEDICARE, MEDICAID ==
[~2018-04-07] VITALS: Ht 180.3 cm; Wt 110.2 kg
[~2018-04-07 23:14] MED LIST changes: +CARB1TAB41 PO; -DSS100 PO; -MV-M1TAB2 PO; -OMEP20 PO; +OXYB5 PO; -VITAD1000 PO
[2018-04-08 00:19] LABS: GLUCOSE,POINT OF CARE 111 MG/DL (70-110)
[2018-04-08] MEDS ORDERED: CLOP75 PO (00:25)
[2018-04-08 00:47] LABS: BASOPHILS % (AUTO) 0.8 % (0.0-2.0); EOSINOPHILS % (AUTO) 2.2 % (1.0-6.0); HEMATOCRIT 36.1 % (41-53); HEMOGLOBIN 12.4 g/dL (13.5-17.5); LYMPHOCYTES # (AUTO) 1.6 K/uL (1.0-4.8); LYMPHOCYTES % (AUTO) 24.9 % (22.0-44.0); MEAN CORPUSCULAR HEMOGLOBIN 29.5 pg (26.0-34.0); MEAN CORPUSCULAR HGB CONC 34.2 G/dL (31.0-37.0); MEAN CORPUSCULAR VOLUME 86 fL (80-100); MONOCYTES # (AUTO) 0.9 K/uL (0.1-1.0); NEUTROPHILS # (AUTO) 3.8 K/uL (1.8-7.7); NEUTROPHILS % (AUTO) 58.1 % (40.0-70.0); PLATELET COUNT (AUTO) 183 K/uL (150-450); RED BLOOD CELL COUNT(AUTO) 4.19 MIL/uL (4.50-5.90); RED CELL DISTRIBUTION WIDTH 14.3 % (11.5-14.5)
[2018-04-08 00:56] LABS: ANION GAP 8 mmol/L (8-16); CALCIUM, TOTAL 8.6 mg/dL (8.8-10.5); CARBON DIOXIDE 31 mmol/L (22-29); CHLORIDE 100 mmol/L (98-107); CREATININE 1.09 mg/dL (0.60-1.30); GLOMERULAR FILTR. RATE CALC > 60 mL/min (>60); GLUCOSE,RANDOM 130 mg/dL (70-110); POTASSIUM 3.5 mmol/L (3.5-5.1); SODIUM SERUM 139 mmol/L (136-145); UREA NITROGEN, BLOOD 17 mg/dL (7-18)
[2018-04-08 01:04] LABS: ALANINE AMINOTRANSFERASE 12 U/L (12-78); ALBUMIN 3.2 g/dL (3.4-5.0); ALKALINE PHOSPHATASE 79 U/L (46-116); ASPARTATE AMINOTRANSFERASE 18 U/L (15-37); BILIRUBIN,TOTAL 0.3 mg/dL (0.1-1.0); TOTAL PROTEIN, SERUM 6.7 g/dL (6.4-8.2); VALPROIC ACID 104 mcg/mL (50-100)
[2018-04-08 01:09] LABS: AMPHET/METH SCREEN,URINE NEGATIVE (NEGATIVE); BARBITURATE SCREEN, URINE NEGATIVE (NEGATIVE); BENZODIAZEPINES SCREEN,URINE NEGATIVE (NEGATIVE); CANNABINOID SCREEN,URINE NEGATIVE (NEGATIVE); COCAINE SCREEN,URINE NEGATIVE (NEGATIVE); METHADONE SCREEN, URINE NEGATIVE (NEGATIVE); OPIATE SCREEN,URINE NEGATIVE (NEGATIVE)
[2018-04-08 01:28] LABS: PHENCYCLIDINE SCREEN,URINE NEGATIVE (NEGATIVE)
[2018-04-08 02:00] VITALS: BP 121/75
== END 2018-04-08 02:30 | disposition home or self-care (01) ==
LOC: EMS 23:15
DX: F41.9 Anxiety disorder, unspecified (principal); E71.43 Iatrogenic carnitine deficiency; I48.91 Unspecified atrial fibrillation; F31.9 Bipolar disorder, unspecified; J44.9 Chronic obstructive pulmonary disease, unspecified; I10 Essential (primary) hypertension; F20.9 Schizophrenia, unspecified; Z95.0 Presence of cardiac pacemaker; Z88.8 Allergy status to other drugs, medicaments and biological substances; Z91.011 Allergy to milk products; Z79.899 Other long term (current) drug therapy
CPT/HCPCS: 36415; 80053; 80164; 80307; 82962; 85025; 99284; G0480

== ENCOUNTER 2018-04-16 21:55 | Inpatient (IN) | payer MEDICARE, MEDICAID ==
[~2018-04-16] VITALS: Ht 180.3 cm; Wt 109.0 kg
[~2018-04-16 21:55] MED LIST changes: +CLOP75 PO; -DABI150 PO
[2018-04-16] MEDS ORDERED: LORazepam 2 MG TABLET PO PRN (23:15)
[2018-04-16] MEDS ORDERED: QUEtiapine FUMARATE 100 MG TABLET PO PRN (23:15)
[2018-04-16] MEDS ORDERED: ZOLPIDEM TARTRATE 10 MG TABLET PO PRN (23:15)
[2018-04-16 23:59] LABS: AMPHET/METH SCREEN,URINE NEGATIVE (NEGATIVE); BARBITURATE SCREEN, URINE NEGATIVE (NEGATIVE); BENZODIAZEPINES SCREEN,URINE NEGATIVE (NEGATIVE); CANNABINOID SCREEN,URINE NEGATIVE (NEGATIVE); COCAINE SCREEN,URINE NEGATIVE (NEGATIVE); METHADONE SCREEN, URINE NEGATIVE (NEGATIVE); OPIATE SCREEN,URINE NEGATIVE (NEGATIVE)
[2018-04-17 00:01] LABS: BASOPHILS % (AUTO) 0.7 % (0.0-2.0); EOSINOPHILS % (AUTO) 3.1 % (1.0-6.0); HEMATOCRIT 35.5 % (41-53); HEMOGLOBIN 12.2 g/dL (13.5-17.5); LYMPHOCYTES # (AUTO) 2.1 K/uL (1.0-4.8); MEAN CORPUSCULAR HEMOGLOBIN 29.6 pg (26.0-34.0); MEAN CORPUSCULAR HGB CONC 34.3 G/dL (31.0-37.0); MEAN CORPUSCULAR VOLUME 86 fL (80-100); MONOCYTES # (AUTO) 0.9 K/uL (0.1-1.0); MONOCYTES % (AUTO) 12.9 % (2.0-9.0); NEUTROPHILS # (AUTO) 3.5 K/uL (1.8-7.7); NEUTROPHILS % (AUTO) 52.3 % (40.0-70.0); PLATELET COUNT (AUTO) 282 K/uL (150-450); RED BLOOD CELL COUNT(AUTO) 4.12 MIL/uL (4.50-5.90); RED CELL DISTRIBUTION WIDTH 14.8 % (11.5-14.5)
[2018-04-17 00:09] LABS: PHENCYCLIDINE SCREEN,URINE NEGATIVE (NEGATIVE)
[2018-04-17 00:10] LABS: ANION GAP 7 mmol/L (8-16); CALCIUM, TOTAL 8.8 mg/dL (8.8-10.5); CARBON DIOXIDE 34 mmol/L (22-29); CHLORIDE 98 mmol/L (98-107); CREATININE 1.02 mg/dL (0.60-1.30); GLOMERULAR FILTR. RATE CALC > 60 mL/min (>60); GLUCOSE,RANDOM 107 mg/dL (70-110); POTASSIUM 3.4 mmol/L (3.5-5.1); SODIUM SERUM 139 mmol/L (136-145); UREA NITROGEN, BLOOD 17 mg/dL (7-18)
[2018-04-17 00:16] LABS: ALKALINE PHOSPHATASE 73 U/L (46-116); ASPARTATE AMINOTRANSFERASE 16 U/L (15-37); BILIRUBIN,TOTAL 0.6 mg/dL (0.1-1.0); TOTAL PROTEIN, SERUM 6.6 g/dL (6.4-8.2)
[2018-04-17 00:28] LABS: ALANINE AMINOTRANSFERASE 8 U/L (12-78)
[2018-04-17 02:07] VITALS: BP 123/73
[2018-04-17 08:08] VITALS: BP 134/88
[2018-04-17] MEDS ORDERED: ALBUTEROL SULFATE HFA 90 MCG/PUFF 8 GM INHALER IH PRN (08:30)
[2018-04-17] MEDS ORDERED: PETROLATUM,WHITE 71 GM JELLY TP PRN (08:30)
[2018-04-17] MEDS ORDERED: BENZOCAINE/MENTHOL LOZENGE MM PRN (08:30)
[2018-04-17] MEDS ORDERED: MAG HYDROX/AL HYDROX/SIMETH ES 30 ML SUSPENSION UDCUP PO PRN (08:30)
[2018-04-17] MEDS ORDERED: MAGNESIUM HYDROXIDE SUSPENSION 30 ML UDCUP PO PRN (08:30)
[2018-04-17] MEDS ORDERED: BACITRACIN 28.4 GM OINTMENT TP PRN (08:30)
[2018-04-17] MEDS ORDERED: ACETAMINOPHEN 325 MG TABLET PO PRN (08:30)
[2018-04-17] MEDS ORDERED: CloNIDine HCL 0.1 MG TABLET PO PRN (08:30)
[2018-04-17] MEDS ORDERED: IBUPROFEN 600 MG TABLET PO PRN (08:30)
[2018-04-17] MEDS ORDERED: POTASSIUM CHLORIDE 20 MEQ ER TABLET PO ONE (08:45)
[2018-04-17] MEDS: AmLODIPine BESYLATE 10 MG TABLET PO SCH (09:05)
[2018-04-17] MEDS: FUROSEMIDE 20 MG TABLET PO SCH ×2 (09:05→16:11)
[2018-04-17] MEDS: METOPROLOL TARTRATE 50 MG TABLET PO SCH ×2 (09:05→16:12)
[2018-04-17] MEDS: DOCUSATE SODIUM 100 MG CAPSULE PO SCH (09:05)
[2018-04-17] MEDS: CARBIDOPA/LEVODOPA 25-100 MG ER TABLET PO SCH ×3 (09:21→16:11)
[2018-04-17] MEDS: OXYBUTYNIN CHLORIDE 5 MG TABLET PO SCH (09:21)
[2018-04-17] MEDS: CLOPIDOGREL BISULFATE 75 MG TABLET PO SCH (09:21)
[2018-04-17] MEDS: DIVALPROEX SODIUM 500 MG DR TABLET PO SCH (20:36)
[2018-04-18] MEDS: LEVOTHYROXINE SODIUM 50 MCG TABLET PO SCH (06:58)
[2018-04-18 08:49] VITALS: BP 143/62
[2018-04-18] MEDS: AmLODIPine BESYLATE 10 MG TABLET PO SCH (09:33)
[2018-04-18] MEDS: DOCUSATE SODIUM 100 MG CAPSULE PO SCH (09:33)
[2018-04-18] MEDS: FUROSEMIDE 20 MG TABLET PO SCH ×2 (09:34→17:34)
[2018-04-18] MEDS: RisperiDONE 2 MG TABLET PO SCH ×2 (09:34→17:34)
[2018-04-18] MEDS: CARBIDOPA/LEVODOPA 25-100 MG ER TABLET PO SCH ×3 (09:34→17:34)
[2018-04-18] MEDS: METOPROLOL TARTRATE 50 MG TABLET PO SCH ×2 (09:34→17:34)
[2018-04-18] MEDS: OXYBUTYNIN CHLORIDE 5 MG TABLET PO SCH (09:34)
[2018-04-18] MEDS: CLOPIDOGREL BISULFATE 75 MG TABLET PO SCH (09:34)
[2018-04-18] MEDS ORDERED: POTASSIUM CHLORIDE 20 MEQ ER TABLET PO ONE (11:30)
[2018-04-18 16:49] VITALS: BP 116/64
[2018-04-18] MEDS: DIVALPROEX SODIUM 500 MG DR TABLET PO SCH (21:11)
[2018-04-19] MEDS: LEVOTHYROXINE SODIUM 50 MCG TABLET PO SCH (06:56)
[2018-04-19] MEDS: FUROSEMIDE 20 MG TABLET PO SCH ×2 (08:37→16:16)
[2018-04-19] MEDS: CLOPIDOGREL BISULFATE 75 MG TABLET PO SCH (08:37)
[2018-04-19] MEDS: CARBIDOPA/LEVODOPA 25-100 MG ER TABLET PO SCH ×3 (08:37→16:16)
[2018-04-19] MEDS: METOPROLOL TARTRATE 50 MG TABLET PO SCH ×2 (08:37→16:16)
[2018-04-19] MEDS: OXYBUTYNIN CHLORIDE 5 MG TABLET PO SCH (08:37)
[2018-04-19] MEDS: RisperiDONE 2 MG TABLET PO SCH ×2 (08:38→16:16)
[2018-04-19] MEDS: AmLODIPine BESYLATE 10 MG TABLET PO SCH (08:38)
[2018-04-19] MEDS: DOCUSATE SODIUM 100 MG CAPSULE PO SCH (08:38)
[2018-04-19 09:02] VITALS: BP 139/89
[2018-04-19 16:36] VITALS: BP 121/76
[2018-04-19] MEDS: DIVALPROEX SODIUM 500 MG DR TABLET PO SCH (20:02)
[2018-04-20] MEDS: LEVOTHYROXINE SODIUM 50 MCG TABLET PO SCH (06:50)
[2018-04-20 08:00] VITALS: BP 142/79
[2018-04-20] MEDS: DOCUSATE SODIUM 100 MG CAPSULE PO SCH (08:22)
[2018-04-20] MEDS: METOPROLOL TARTRATE 50 MG TABLET PO SCH ×2 (08:22→16:19)
[2018-04-20] MEDS: CARBIDOPA/LEVODOPA 25-100 MG ER TABLET PO SCH ×3 (08:22→16:18)
[2018-04-20] MEDS: AmLODIPine BESYLATE 10 MG TABLET PO SCH (08:22)
[2018-04-20] MEDS: CLOPIDOGREL BISULFATE 75 MG TABLET PO SCH (08:22)
[2018-04-20] MEDS: FUROSEMIDE 20 MG TABLET PO SCH ×2 (08:22→16:18)
[2018-04-20] MEDS: RisperiDONE 2 MG TABLET PO SCH ×2 (08:22→16:19)
[2018-04-20] MEDS: OXYBUTYNIN CHLORIDE 5 MG TABLET PO SCH (08:22)
[2018-04-20] MEDS: MICONAZOLE NITRATE 2% 30 GM CREAM TP SCH ×2 (08:24→16:19)
[2018-04-20 19:27] VITALS: BP 136/74
[2018-04-20] MEDS: DIVALPROEX SODIUM 500 MG DR TABLET PO SCH (20:16)
[2018-04-21] MEDS: LEVOTHYROXINE SODIUM 50 MCG TABLET PO SCH (06:51)
[2018-04-21 08:00] VITALS: BP 120/63
[2018-04-21] MEDS: RisperiDONE 2 MG TABLET PO SCH ×2 (08:07→16:20)
[2018-04-21] MEDS: FUROSEMIDE 20 MG TABLET PO SCH ×2 (08:07→16:20)
[2018-04-21] MEDS: DOCUSATE SODIUM 100 MG CAPSULE PO SCH (08:07)
[2018-04-21] MEDS: CARBIDOPA/LEVODOPA 25-100 MG ER TABLET PO SCH ×3 (08:07→16:20)
[2018-04-21] MEDS: CLOPIDOGREL BISULFATE 75 MG TABLET PO SCH (08:07)
[2018-04-21] MEDS: OXYBUTYNIN CHLORIDE 5 MG TABLET PO SCH (08:07)
[2018-04-21] MEDS: AmLODIPine BESYLATE 10 MG TABLET PO SCH (08:07)
[2018-04-21] MEDS: METOPROLOL TARTRATE 50 MG TABLET PO SCH ×2 (08:09→16:23)
[2018-04-21] MEDS: MICONAZOLE NITRATE 2% 30 GM CREAM TP SCH ×2 (09:25→16:34)
[2018-04-21 16:56] VITALS: BP 119/85
[2018-04-21] MEDS ORDERED: MICO15CR4 TP (18:40)
[2018-04-21] MEDS ORDERED: DSS100 PO (18:40)
[2018-04-21] MEDS: DIVALPROEX SODIUM 500 MG DR TABLET PO SCH (20:10)
[2018-04-22] MEDS: LEVOTHYROXINE SODIUM 50 MCG TABLET PO SCH (06:46)
[2018-04-22] MEDS: METOPROLOL TARTRATE 50 MG TABLET PO SCH (08:54)
[2018-04-22] MEDS: FUROSEMIDE 20 MG TABLET PO SCH (08:54)
[2018-04-22] MEDS: OXYBUTYNIN CHLORIDE 5 MG TABLET PO SCH (08:54)
[2018-04-22] MEDS: DOCUSATE SODIUM 100 MG CAPSULE PO SCH (08:54)
[2018-04-22] MEDS: CLOPIDOGREL BISULFATE 75 MG TABLET PO SCH (08:54)
[2018-04-22] MEDS: RisperiDONE 2 MG TABLET PO SCH (08:55)
[2018-04-22] MEDS: CARBIDOPA/LEVODOPA 25-100 MG ER TABLET PO SCH ×2 (08:55→12:23)
[2018-04-22] MEDS: AmLODIPine BESYLATE 10 MG TABLET PO SCH (08:55)
[2018-04-22] MEDS: MICONAZOLE NITRATE 2% 30 GM CREAM TP SCH (08:55)
== END 2018-04-22 15:00 | disposition home or self-care (01) | DRG 885 ==
LOC: EMS 21:57 → 3EX 23:28 → UNDOADMIN 23:31
PROVIDERS: ADMIT Psychiatry & Neurology Psychiatry; ATTEND Psychiatry & Neurology Psychiatry
DX: F25.9 Schizoaffective disorder, unspecified (principal); R45.851 Suicidal ideations; F17.200 Nicotine dependence, unspecified, uncomplicated; E87.6 Hypokalemia; E55.9 Vitamin D deficiency, unspecified; E03.9 Hypothyroidism, unspecified; J44.9 Chronic obstructive pulmonary disease, unspecified; I48.91 Unspecified atrial fibrillation; I10 Essential (primary) hypertension; G47.00 Insomnia, unspecified; G20 Parkinson's disease; K21.9 Gastro-esophageal reflux disease without esophagitis; F41.9 Anxiety disorder, unspecified; F31.9 Bipolar disorder, unspecified; M19.90 Unspecified osteoarthritis, unspecified site; S50.12XA Contusion of left forearm, initial encounter; R32 Unspecified urinary incontinence; Z95.0 Presence of cardiac pacemaker; Z79.02 Long term (current) use of antithrombotics/antiplatelets; Z88.8 Allergy status to other drugs, medicaments and biological substances; Z79.899 Other long term (current) drug therapy; W18.39XA Other fall on same level, initial encounter; Y93.89 Activity, other specified; Y92.89 Other specified places as the place of occurrence of the external cause; Y99.8 Other external cause status; Z71.6 Tobacco abuse counseling
CPT/HCPCS: 84132; G0378; G0480

== ENCOUNTER 2018-06-02 19:37 | Inpatient (IN) | payer MEDICARE, MEDICAID ==
[~2018-06-02] VITALS: Ht 180.3 cm; Wt 112.7 kg
[~2018-06-02 19:37] MED LIST changes: -CLOP75 PO; +CLOP75TA3 PO; +DSS100 PO; +MICO15CR4 TP
[2018-06-02 21:38] LABS: BASOPHILS % (AUTO) 0.8 % (0.0-2.0); EOSINOPHILS % (AUTO) 1.9 % (1.0-6.0); HEMATOCRIT 36.3 % (41-53); HEMOGLOBIN 12.4 g/dL (13.5-17.5); LYMPHOCYTES # (AUTO) 1.8 K/uL (1.0-4.8); LYMPHOCYTES % (AUTO) 27.8 % (22.0-44.0); MEAN CORPUSCULAR HEMOGLOBIN 29.9 pg (26.0-34.0); MEAN CORPUSCULAR HGB CONC 34.2 G/dL (31.0-37.0); MEAN CORPUSCULAR VOLUME 87 fL (80-100); MONOCYTES # (AUTO) 0.9 K/uL (0.1-1.0); MONOCYTES % (AUTO) 13.4 % (2.0-9.0); NEUTROPHILS # (AUTO) 3.7 K/uL (1.8-7.7); NEUTROPHILS % (AUTO) 56.1 % (40.0-70.0); PLATELET COUNT (AUTO) 178 K/uL (150-450); RED BLOOD CELL COUNT(AUTO) 4.15 MIL/uL (4.50-5.90); RED CELL DISTRIBUTION WIDTH 14.9 % (11.5-14.5)
[2018-06-02 21:46] LABS: AMPHET/METH SCREEN,URINE NEGATIVE (NEGATIVE); BARBITURATE SCREEN, URINE NEGATIVE (NEGATIVE); BENZODIAZEPINES SCREEN,URINE NEGATIVE (NEGATIVE); CANNABINOID SCREEN,URINE NEGATIVE (NEGATIVE); COCAINE SCREEN,URINE NEGATIVE (NEGATIVE); METHADONE SCREEN, URINE NEGATIVE (NEGATIVE); OPIATE SCREEN,URINE NEGATIVE (NEGATIVE)
[2018-06-02 21:47] LABS: PHENCYCLIDINE SCREEN,URINE NEGATIVE (NEGATIVE)
[2018-06-02 21:53] LABS: ANION GAP 1 mmol/L (8-16); CALCIUM, TOTAL 8.8 mg/dL (8.8-10.5); CARBON DIOXIDE 35 mmol/L (22-29); CHLORIDE 104 mmol/L (98-107); CREATININE 1.22 mg/dL (0.60-1.30); GLOMERULAR FILTR. RATE CALC 60 mL/min (>60); GLUCOSE,RANDOM 120 mg/dL (70-110); POTASSIUM 3.7 mmol/L (3.5-5.1); SODIUM SERUM 140 mmol/L (136-145); UREA NITROGEN, BLOOD 15 mg/dL (7-18)
[2018-06-02 22:07] LABS: ALANINE AMINOTRANSFERASE 9 U/L (12-78); ALBUMIN 3.2 g/dL (3.4-5.0); ALKALINE PHOSPHATASE 92 U/L (46-116); ASPARTATE AMINOTRANSFERASE 15 U/L (15-37); BILIRUBIN,TOTAL 0.2 mg/dL (0.1-1.0); THYROID STIMULATING HORMONE 2.07 uIU/mL (0.36-3.74); TOTAL PROTEIN, SERUM 6.8 g/dL (6.4-8.2); VALPROIC ACID 61 mcg/mL (50-100)
[2018-06-02 22:24] LABS: SALICYLATE < 2.8 mg/dL (2.8-20.0)
[2018-06-02] MEDS ORDERED: QUEtiapine FUMARATE 100 MG TABLET PO PRN (22:30)
[2018-06-02 22:31] LABS: ACETAMINOPHEN < 2 mcg/mL (10-30)
[2018-06-02] MEDS ORDERED: RisperiDONE 1 MG TABLET PO ONE (23:00)
[2018-06-02] MEDS ORDERED: VALPROIC ACID 250 MG CAPSULE PO ONE (23:00)
[2018-06-03 03:00] VITALS: BP 144/84
[2018-06-03 03:17] LABS: APPEARANCE,URINE CLEAR (CLEAR); BILIRUBIN,URINE NEGATIVE (NEGATIVE); GLUCOSE, URINE (UA) NEGATIVE (NEGATIVE); KETONES,URINE NEGATIVE (NEGATIVE); LEUKOCYTE ESTERASE ,URINE NEGATIVE (NEGATIVE); NITRATE,URINE NEGATIVE (NEGATIVE); OCCULT BLOOD,URINE NEGATIVE (NEGATIVE); PROTEIN,URINE NEGATIVE (NEGATIVE); UROBILINOGEN,URINE 0.2 mg/dL (<=1.0)
[2018-06-03 03:25] LABS: CHOL/HDL RATIO 3.3 (4.2-7.3); CHOLESTEROL 127 mg/dL (131-200); HDL CHOLESTEROL 38 mg/dL (40-60); LDL CHOL (CALC.) 47 mg/dL (0-130); TRIGLYCERIDES 211 mg/dL (15-150)
[2018-06-03] MEDS ORDERED: PNEUMOCOCCAL VACCINE POLYVALENT 0.5 ML VIAL [PPSV23] IM ONE (04:30)
[2018-06-03 08:29] VITALS: BP 131/82
[2018-06-03] MEDS ORDERED: FUROSEMIDE 40 MG TABLET PO SCH (09:45)
[2018-06-03] MEDS: METOPROLOL TARTRATE 50 MG TABLET PO SCH (10:10)
[2018-06-03] MEDS: CLOPIDOGREL BISULFATE 75 MG TABLET PO SCH (10:10)
[2018-06-03] MEDS: OXYBUTYNIN CHLORIDE 5 MG TABLET PO SCH (10:10)
[2018-06-03] MEDS: AmLODIPine BESYLATE 10 MG TABLET PO SCH (10:12)
[2018-06-03] MEDS: LORazepam 2 MG TABLET PO PRN ×2 (10:13→21:02)
[2018-06-03] MEDS ORDERED: FURO20 PO (10:32)
[2018-06-03] MEDS ORDERED: AMLO-512 PO (10:32)
[2018-06-03] MEDS ORDERED: RISP2 PO (10:32)
[2018-06-03] MEDS: CARBIDOPA/LEVODOPA 25-100 MG ER TABLET PO SCH (16:16)
[2018-06-03 17:45] VITALS: BP 137/77
[2018-06-03] MEDS: MICONAZOLE NITRATE 2% 30 GM CREAM TP SCH (18:23)
[2018-06-03] MEDS: FUROSEMIDE 20 MG TABLET PO SCH (18:23)
[2018-06-03] MEDS ORDERED: ACETAMINOPHEN 325 MG TABLET PO PRN (20:30)
[2018-06-03] MEDS ORDERED: ALBUTEROL SULFATE HFA 90 MCG/PUFF 8 GM INHALER IH PRN (20:30)
[2018-06-03] MEDS ORDERED: PETROLATUM,WHITE 71 GM JELLY TP PRN (20:30)
[2018-06-03] MEDS ORDERED: MAGNESIUM HYDROXIDE SUSPENSION 30 ML UDCUP PO PRN (20:30)
[2018-06-03] MEDS ORDERED: MAG HYDROX/AL HYDROX/SIMETH ES 30 ML SUSPENSION UDCUP PO PRN (20:30)
[2018-06-03] MEDS ORDERED: BACITRACIN 28.4 GM OINTMENT TP PRN (20:30)
[2018-06-03] MEDS ORDERED: ONDANSETRON HCL 4 MG TABLET PO PRN (20:30)
[2018-06-03] MEDS ORDERED: BENZOCAINE/MENTHOL LOZENGE MM PRN (20:30)
[2018-06-03] MEDS ORDERED: CloNIDine HCL 0.1 MG TABLET PO PRN (20:30)
[2018-06-03] MEDS ORDERED: LOPERAMIDE HCL 2 MG CAPSULE PO PRN (20:30)
[2018-06-03] MEDS ORDERED: DIVALPROEX SODIUM 500 MG ER TABLET PO SCH (21:00)
[2018-06-03] MEDS: DIVALPROEX SODIUM 500 MG DR TABLET PO SCH (21:00)
[2018-06-03] MEDS ORDERED: DENTURE ADHESIVE 68 GM CREAM DT PRN (21:15)
[2018-06-04 00:44] VITALS: BP 128/72
[2018-06-04] MEDS: LEVOTHYROXINE SODIUM 50 MCG TABLET PO SCH (06:32)
[2018-06-04 08:25] VITALS: BP 112/68
[2018-06-04] MEDS: CLOPIDOGREL BISULFATE 75 MG TABLET PO SCH (08:25)
[2018-06-04] MEDS: CHOLECALCIFEROL (VIT D3) 1,000 UNITS TABLET PO SCH (08:25)
[2018-06-04] MEDS: AmLODIPine BESYLATE 10 MG TABLET PO SCH (08:26)
[2018-06-04] MEDS: FUROSEMIDE 20 MG TABLET PO SCH ×2 (08:26→16:35)
[2018-06-04] MEDS: OXYBUTYNIN CHLORIDE 5 MG TABLET PO SCH (08:26)
[2018-06-04] MEDS: CARBIDOPA/LEVODOPA 25-100 MG ER TABLET PO SCH ×3 (08:26→16:35)
[2018-06-04] MEDS: DOCUSATE SODIUM 100 MG CAPSULE PO SCH (08:26)
[2018-06-04] MEDS: METOPROLOL TARTRATE 50 MG TABLET PO SCH ×2 (08:26→16:35)
[2018-06-04] MEDS: MICONAZOLE NITRATE 2% 30 GM CREAM TP SCH ×2 (08:27→16:35)
[2018-06-04 16:09] VITALS: BP 125/89
[2018-06-04] MEDS: RisperiDONE 2 MG TABLET PO SCH (16:35)
[2018-06-04] MEDS: DIVALPROEX SODIUM 500 MG DR TABLET PO SCH (20:33)
[2018-06-05 06:09] VITALS: BP 117/72
[2018-06-05] MEDS: LEVOTHYROXINE SODIUM 50 MCG TABLET PO SCH (06:28)
[2018-06-05 08:12] VITALS: BP 144/77
[2018-06-05] MEDS: DOCUSATE SODIUM 100 MG CAPSULE PO SCH (08:54)
[2018-06-05] MEDS: METOPROLOL TARTRATE 50 MG TABLET PO SCH ×2 (08:54→16:20)
[2018-06-05] MEDS: RisperiDONE 2 MG TABLET PO SCH ×2 (08:54→16:20)
[2018-06-05] MEDS: CARBIDOPA/LEVODOPA 25-100 MG ER TABLET PO SCH ×3 (08:54→16:20)
[2018-06-05] MEDS: CLOPIDOGREL BISULFATE 75 MG TABLET PO SCH (08:54)
[2018-06-05] MEDS: FUROSEMIDE 20 MG TABLET PO SCH ×2 (08:54→16:20)
[2018-06-05] MEDS: AmLODIPine BESYLATE 10 MG TABLET PO SCH (08:54)
[2018-06-05] MEDS: CHOLECALCIFEROL (VIT D3) 1,000 UNITS TABLET PO SCH (08:54)
[2018-06-05] MEDS: OXYBUTYNIN CHLORIDE 5 MG TABLET PO SCH (08:54)
[2018-06-05] MEDS: MICONAZOLE NITRATE 2% 30 GM CREAM TP SCH ×2 (08:56→16:22)
[2018-06-05 16:17] VITALS: BP 129/75
[2018-06-05] MEDS: DIVALPROEX SODIUM 500 MG DR TABLET PO SCH (21:04)
[2018-06-06] MEDS: ZOLPIDEM TARTRATE 10 MG TABLET PO PRN (00:04)
[2018-06-06 05:34] VITALS: BP 122/72
[2018-06-06] MEDS: LEVOTHYROXINE SODIUM 50 MCG TABLET PO SCH (06:34)
[2018-06-06 08:14] VITALS: BP 133/84
[2018-06-06] MEDS: CLOPIDOGREL BISULFATE 75 MG TABLET PO SCH (08:36)
[2018-06-06] MEDS: FUROSEMIDE 20 MG TABLET PO SCH ×2 (08:36→16:21)
[2018-06-06] MEDS: OXYBUTYNIN CHLORIDE 5 MG TABLET PO SCH (08:36)
[2018-06-06] MEDS: DOCUSATE SODIUM 100 MG CAPSULE PO SCH (08:36)
[2018-06-06] MEDS: AmLODIPine BESYLATE 10 MG TABLET PO SCH (08:36)
[2018-06-06] MEDS: METOPROLOL TARTRATE 50 MG TABLET PO SCH ×2 (08:36→16:21)
[2018-06-06] MEDS: CARBIDOPA/LEVODOPA 25-100 MG ER TABLET PO SCH ×3 (08:36→16:20)
[2018-06-06] MEDS: RisperiDONE 2 MG TABLET PO SCH ×2 (08:36→16:20)
[2018-06-06] MEDS: CHOLECALCIFEROL (VIT D3) 1,000 UNITS TABLET PO SCH (08:37)
[2018-06-06] MEDS: MICONAZOLE NITRATE 2% 30 GM CREAM TP SCH ×2 (08:38→18:46)
[2018-06-06 16:07] VITALS: BP 134/77
[2018-06-06] MEDS: DIVALPROEX SODIUM 500 MG DR TABLET PO SCH (20:00)
[2018-06-07] VITALS: BP 128/76
[2018-06-07] MEDS: ZOLPIDEM TARTRATE 10 MG TABLET PO PRN (00:13)
[2018-06-07] MEDS: LEVOTHYROXINE SODIUM 50 MCG TABLET PO SCH (06:38)
[2018-06-07] MEDS: METOPROLOL TARTRATE 50 MG TABLET PO SCH ×2 (08:10→16:21)
[2018-06-07] MEDS: FUROSEMIDE 20 MG TABLET PO SCH ×2 (08:11→16:21)
[2018-06-07] MEDS: CARBIDOPA/LEVODOPA 25-100 MG ER TABLET PO SCH ×3 (08:11→16:21)
[2018-06-07] MEDS: CHOLECALCIFEROL (VIT D3) 1,000 UNITS TABLET PO SCH (08:11)
[2018-06-07] MEDS: AmLODIPine BESYLATE 10 MG TABLET PO SCH (08:11)
[2018-06-07] MEDS: DOCUSATE SODIUM 100 MG CAPSULE PO SCH (08:11)
[2018-06-07] MEDS: OXYBUTYNIN CHLORIDE 5 MG TABLET PO SCH (08:11)
[2018-06-07] MEDS: CLOPIDOGREL BISULFATE 75 MG TABLET PO SCH (08:11)
[2018-06-07] MEDS: RisperiDONE 2 MG TABLET PO SCH ×2 (08:11→16:21)
[2018-06-07] MEDS: MICONAZOLE NITRATE 2% 30 GM CREAM TP SCH ×2 (08:13→16:22)
[2018-06-07 08:33] VITALS: BP 114/71
[2018-06-07 18:03] VITALS: BP 124/63
[2018-06-07] MEDS: DIVALPROEX SODIUM 500 MG DR TABLET PO SCH (20:06)
[2018-06-08] MEDS: LEVOTHYROXINE SODIUM 50 MCG TABLET PO SCH (06:37)
[2018-06-08 06:56] VITALS: BP 120/78
[2018-06-08] MEDS: METOPROLOL TARTRATE 50 MG TABLET PO SCH ×2 (08:27→17:01)
[2018-06-08] MEDS: CLOPIDOGREL BISULFATE 75 MG TABLET PO SCH (08:27)
[2018-06-08] MEDS: CHOLECALCIFEROL (VIT D3) 1,000 UNITS TABLET PO SCH (08:27)
[2018-06-08] MEDS: FUROSEMIDE 20 MG TABLET PO SCH ×2 (08:27→17:01)
[2018-06-08] MEDS: AmLODIPine BESYLATE 10 MG TABLET PO SCH (08:27)
[2018-06-08] MEDS: DOCUSATE SODIUM 100 MG CAPSULE PO SCH (08:27)
[2018-06-08] MEDS: CARBIDOPA/LEVODOPA 25-100 MG ER TABLET PO SCH ×3 (08:27→17:01)
[2018-06-08] MEDS: RisperiDONE 2 MG TABLET PO SCH ×2 (08:27→17:01)
[2018-06-08] MEDS: OXYBUTYNIN CHLORIDE 5 MG TABLET PO SCH (08:27)
[2018-06-08] MEDS: MICONAZOLE NITRATE 2% 30 GM CREAM TP SCH ×2 (08:29→17:02)
[2018-06-08 08:37] VITALS: BP 140/90
== END 2018-06-08 15:25 | disposition home or self-care (01) | DRG 885 ==
LOC: EMS 19:41 → AHU 06-03 02:03 → B2X 06-03 02:30
PROVIDERS: ADMIT Psychiatry & Neurology Psychiatry; ATTEND Psychiatry & Neurology Psychiatry
DX: F25.9 Schizoaffective disorder, unspecified (principal); R45.851 Suicidal ideations; F31.30 Bipolar disorder, current episode depressed, mild or moderate severity, unspecified; E55.9 Vitamin D deficiency, unspecified; F17.210 Nicotine dependence, cigarettes, uncomplicated; F41.9 Anxiety disorder, unspecified; G20 Parkinson's disease; G40.909 Epilepsy, unspecified, not intractable, without status epilepticus; G47.00 Insomnia, unspecified; I10 Essential (primary) hypertension; I48.91 Unspecified atrial fibrillation; I44.0 Atrioventricular block, first degree; J44.9 Chronic obstructive pulmonary disease, unspecified; K21.9 Gastro-esophageal reflux disease without esophagitis; M19.90 Unspecified osteoarthritis, unspecified site; M54.5 Low back pain; G89.29 Other chronic pain; K59.00 Constipation, unspecified; E03.9 Hypothyroidism, unspecified; Z95.0 Presence of cardiac pacemaker; Z88.8 Allergy status to other drugs, medicaments and biological substances; Z79.899 Other long term (current) drug therapy; Z90.89 Acquired absence of other organs
CPT/HCPCS: 84443; 93005; G0480; G0481

== ENCOUNTER 2018-06-17 01:07 | Emergency (ER) | payer MEDICARE, MEDICAID ==
[~2018-06-17] VITALS: Ht 180.3 cm; Wt 109.5 kg
[~2018-06-17 01:07] MED LIST changes: -AMLO-511 PO; +AMLO-512 PO; +FURO20 PO; -FURO40 PO; -MICO15CR4 TP; -RISP1 PO; +RISP2 PO
[2018-06-17 02:09] LABS: BASOPHILS % (AUTO) 0.5 % (0.0-2.0); EOSINOPHILS % (AUTO) 2.8 % (1.0-6.0); HEMATOCRIT 39.6 % (41-53); HEMOGLOBIN 13.4 g/dL (13.5-17.5); LYMPHOCYTES # (AUTO) 2.3 K/uL (1.0-4.8); LYMPHOCYTES % (AUTO) 33.8 % (22.0-44.0); MEAN CORPUSCULAR HEMOGLOBIN 29.5 pg (26.0-34.0); MEAN CORPUSCULAR HGB CONC 33.8 G/dL (31.0-37.0); MEAN CORPUSCULAR VOLUME 87 fL (80-100); MONOCYTES # (AUTO) 0.8 K/uL (0.1-1.0); MONOCYTES % (AUTO) 12.6 % (2.0-9.0); NEUTROPHILS # (AUTO) 3.4 K/uL (1.8-7.7); NEUTROPHILS % (AUTO) 50.3 % (40.0-70.0); PLATELET COUNT (AUTO) 275 K/uL (150-450); RED BLOOD CELL COUNT(AUTO) 4.54 MIL/uL (4.50-5.90); RED CELL DISTRIBUTION WIDTH 14.5 % (11.5-14.5)
[2018-06-17] MEDS ORDERED: LORazepam 2 MG TABLET PO ONE (02:15)
[2018-06-17] MEDS ORDERED: OLANZapine 5 MG TABLET PO ONE (02:15)
[2018-06-17 02:58] LABS: ALANINE AMINOTRANSFERASE 6 U/L (12-78); ALBUMIN 3.4 g/dL (3.4-5.0); ALKALINE PHOSPHATASE 87 U/L (46-116); ANION GAP 4 mmol/L (8-16); ASPARTATE AMINOTRANSFERASE 13 U/L (15-37); BILIRUBIN,TOTAL 0.3 mg/dL (0.1-1.0); CARBON DIOXIDE 34 mmol/L (22-29); CHLORIDE 101 mmol/L (98-107); CREATININE 0.92 mg/dL (0.60-1.30); GLOMERULAR FILTR. RATE CALC > 60 mL/min (>60); GLUCOSE,RANDOM 97 mg/dL (70-110); SODIUM SERUM 139 mmol/L (136-145); TOTAL PROTEIN, SERUM 7.2 g/dL (6.4-8.2); UREA NITROGEN, BLOOD 13 mg/dL (7-18)
[2018-06-17 03:03] LABS: CALCIUM, TOTAL 9.3 mg/dL (8.8-10.5)
[2018-06-17 03:14] VITALS: BP 132/85
== END 2018-06-17 03:34 | disposition home or self-care (01) ==
LOC: EMS 01:08
DX: F25.9 Schizoaffective disorder, unspecified (principal); F32.9 Major depressive disorder, single episode, unspecified; F41.9 Anxiety disorder, unspecified; F31.9 Bipolar disorder, unspecified; I48.91 Unspecified atrial fibrillation; J44.9 Chronic obstructive pulmonary disease, unspecified; I10 Essential (primary) hypertension; Z95.0 Presence of cardiac pacemaker; Z88.8 Allergy status to other drugs, medicaments and biological substances; Z91.011 Allergy to milk products; Z79.899 Other long term (current) drug therapy
CPT/HCPCS: 36415; 80053; 85025; 99284; G0480

== ENCOUNTER 2018-06-21 21:55 | Inpatient (IN) | payer MEDICARE, MEDICAID ==
[~2018-06-21] VITALS: Ht 180.3 cm; Wt 109.8 kg
[2018-06-21 22:20] VITALS: BP 152/93
[2018-06-21] MEDS ORDERED: QUEtiapine FUMARATE 100 MG TABLET PO PRN (22:45)
[2018-06-21] MEDS ORDERED: LORazepam 2 MG TABLET PO PRN (22:45)
[2018-06-22] MEDS: ZOLPIDEM TARTRATE 10 MG TABLET PO PRN (00:05)
[2018-06-22 00:20] VITALS: BP 138/86
[2018-06-22 00:21] VITALS: BP 138/86
[2018-06-22] MEDS ORDERED: PNEUMOCOCCAL VACCINE POLYVALENT 0.5 ML VIAL [PPSV23] IM ONE (01:00)
[2018-06-22 08:13] VITALS: BP 129/87
[2018-06-22] MEDS: RisperiDONE 2 MG TABLET PO SCH ×2 (08:34→16:39)
[2018-06-22 08:37] LABS: BASOPHILS % (AUTO) 0.5 % (0.0-2.0); EOSINOPHILS % (AUTO) 1.9 % (1.0-6.0); HEMATOCRIT 39.1 % (41-53); HEMOGLOBIN 13.1 g/dL (13.5-17.5); LYMPHOCYTES # (AUTO) 1.7 K/uL (1.0-4.8); LYMPHOCYTES % (AUTO) 21.6 % (22.0-44.0); MEAN CORPUSCULAR HEMOGLOBIN 29.8 pg (26.0-34.0); MEAN CORPUSCULAR HGB CONC 33.5 G/dL (31.0-37.0); MEAN CORPUSCULAR VOLUME 89 fL (80-100); MONOCYTES # (AUTO) 1.1 K/uL (0.1-1.0); MONOCYTES % (AUTO) 14.3 % (2.0-9.0); NEUTROPHILS # (AUTO) 4.8 K/uL (1.8-7.7); NEUTROPHILS % (AUTO) 61.7 % (40.0-70.0); PLATELET COUNT (AUTO) 245 K/uL (150-450); RED CELL DISTRIBUTION WIDTH 14.7 % (11.5-14.5)
[2018-06-22] MEDS ORDERED: ACETAMINOPHEN 325 MG TABLET PO PRN (09:00)
[2018-06-22] MEDS ORDERED: IBUPROFEN 600 MG TABLET PO PRN (09:00)
[2018-06-22] MEDS ORDERED: BENZOCAINE/MENTHOL LOZENGE MM PRN (09:00)
[2018-06-22] MEDS ORDERED: BACITRACIN 28.4 GM OINTMENT TP PRN (09:00)
[2018-06-22] MEDS ORDERED: MAG HYDROX/AL HYDROX/SIMETH ES 30 ML SUSPENSION UDCUP PO PRN (09:00)
[2018-06-22] MEDS ORDERED: ALBUTEROL SULFATE HFA 90 MCG/PUFF 8 GM INHALER IH PRN (09:00)
[2018-06-22] MEDS ORDERED: CloNIDine HCL 0.1 MG TABLET PO PRN (09:00)
[2018-06-22] MEDS ORDERED: LOPERAMIDE HCL 2 MG CAPSULE PO PRN (09:00)
[2018-06-22] MEDS ORDERED: MAGNESIUM HYDROXIDE SUSPENSION 30 ML UDCUP PO PRN (09:00)
[2018-06-22] MEDS ORDERED: ONDANSETRON HCL 4 MG TABLET PO PRN (09:00)
[2018-06-22] MEDS ORDERED: PETROLATUM,WHITE 71 GM JELLY TP PRN (09:00)
[2018-06-22 09:13] LABS: HEMOGLOBIN A1C 5.9 % (4.5-6.2)
[2018-06-22 09:17] LABS: ALANINE AMINOTRANSFERASE 11 U/L (12-78); ALBUMIN 2.9 g/dL (3.4-5.0); ALKALINE PHOSPHATASE 79 U/L (46-116); ANION GAP 1 mmol/L (8-16); ASPARTATE AMINOTRANSFERASE 14 U/L (15-37); BILIRUBIN,TOTAL 0.3 mg/dL (0.1-1.0); CALCIUM, TOTAL 9.1 mg/dL (8.8-10.5); CARBON DIOXIDE 37 mmol/L (22-29); CHLORIDE 102 mmol/L (98-107); CHOL/HDL RATIO 4.3 (4.2-7.3); CHOLESTEROL 149 mg/dL (131-200); CREATININE 1.05 mg/dL (0.60-1.30); FREE T4 (FREE THYROXINE) 1.02 ng/dL (0.76-1.46); GLOMERULAR FILTR. RATE CALC > 60 mL/min (>60); GLUCOSE,RANDOM 96 mg/dL (70-110); HDL CHOLESTEROL 35 mg/dL (40-60); LDL CHOL (CALC.) 71 mg/dL (0-130); POTASSIUM 3.8 mmol/L (3.5-5.1); SODIUM SERUM 140 mmol/L (136-145); THYROID STIMULATING HORMONE 5.91 uIU/mL (0.36-3.74); TOTAL PROTEIN, SERUM 6.6 g/dL (6.4-8.2); TRIGLYCERIDES 215 mg/dL (15-150); UREA NITROGEN, BLOOD 20 mg/dL (7-18); VALPROIC ACID 51 mcg/mL (50-100)
[2018-06-22] MEDS: DOCUSATE SODIUM 100 MG CAPSULE PO SCH (09:20)
[2018-06-22] MEDS: FUROSEMIDE 20 MG TABLET PO SCH (12:30)
[2018-06-22] MEDS: CARBIDOPA/LEVODOPA 25-100 MG TABLET PO SCH ×2 (13:00→16:39)
[2018-06-22] MEDS: OXYBUTYNIN CHLORIDE 5 MG ER TABLET PO SCH (15:55)
[2018-06-22] MEDS: CLOPIDOGREL BISULFATE 75 MG TABLET PO SCH (15:55)
[2018-06-22 16:04] VITALS: BP 130/74
[2018-06-22] MEDS: METOPROLOL TARTRATE 50 MG TABLET PO SCH (16:39)
[2018-06-22] MEDS: DIVALPROEX SODIUM 500 MG DR TABLET PO SCH (20:39)
[2018-06-23 05:19] VITALS: BP 137/75
[2018-06-23] MEDS: LEVOTHYROXINE SODIUM 50 MCG TABLET PO SCH (06:46)
[2018-06-23] MEDS: FUROSEMIDE 20 MG TABLET PO SCH (08:19)
[2018-06-23] MEDS: METOPROLOL TARTRATE 50 MG TABLET PO SCH ×2 (08:19→16:48)
[2018-06-23] MEDS: CLOPIDOGREL BISULFATE 75 MG TABLET PO SCH (08:19)
[2018-06-23] MEDS: CARBIDOPA/LEVODOPA 25-100 MG TABLET PO SCH ×3 (08:19→16:48)
[2018-06-23] MEDS: RisperiDONE 2 MG TABLET PO SCH ×2 (08:20→16:48)
[2018-06-23] MEDS: AmLODIPine BESYLATE 10 MG TABLET PO SCH (08:20)
[2018-06-23] MEDS: OXYBUTYNIN CHLORIDE 5 MG ER TABLET PO SCH (08:20)
[2018-06-23] MEDS: DOCUSATE SODIUM 100 MG CAPSULE PO SCH (08:20)
[2018-06-23 09:11] VITALS: BP 122/90
[2018-06-23 18:42] VITALS: BP 139/82
[2018-06-23] MEDS: DIVALPROEX SODIUM 500 MG DR TABLET PO SCH (20:30)
[2018-06-24] MEDS: ZOLPIDEM TARTRATE 10 MG TABLET PO PRN ×2 (00:03→21:05)
[2018-06-24 00:05] VITALS: BP 113/81
[2018-06-24] MEDS: LEVOTHYROXINE SODIUM 50 MCG TABLET PO SCH (06:47)
[2018-06-24] MEDS: CLOPIDOGREL BISULFATE 75 MG TABLET PO SCH (08:08)
[2018-06-24] MEDS: DOCUSATE SODIUM 100 MG CAPSULE PO SCH (08:08)
[2018-06-24] MEDS: RisperiDONE 2 MG TABLET PO SCH ×2 (08:08→16:40)
[2018-06-24] MEDS: AmLODIPine BESYLATE 10 MG TABLET PO SCH (08:08)
[2018-06-24] MEDS: METOPROLOL TARTRATE 50 MG TABLET PO SCH ×2 (08:08→16:40)
[2018-06-24] MEDS: CARBIDOPA/LEVODOPA 25-100 MG TABLET PO SCH ×3 (08:08→16:40)
[2018-06-24] MEDS: FUROSEMIDE 20 MG TABLET PO SCH (08:08)
[2018-06-24] MEDS: OXYBUTYNIN CHLORIDE 5 MG ER TABLET PO SCH (08:08)
[2018-06-24 08:26] VITALS: BP 128/88
[2018-06-24 16:07] VITALS: BP 155/83
[2018-06-24] MEDS: DIVALPROEX SODIUM 500 MG DR TABLET PO SCH (20:39)
[2018-06-25 06:12] VITALS: BP 128/84
[2018-06-25] MEDS: LEVOTHYROXINE SODIUM 50 MCG TABLET PO SCH (06:24)
[2018-06-25] MEDS: METOPROLOL TARTRATE 50 MG TABLET PO SCH ×2 (08:01→16:35)
[2018-06-25] MEDS: DOCUSATE SODIUM 100 MG CAPSULE PO SCH (08:01)
[2018-06-25] MEDS: CLOPIDOGREL BISULFATE 75 MG TABLET PO SCH (08:01)
[2018-06-25] MEDS: CARBIDOPA/LEVODOPA 25-100 MG TABLET PO SCH ×3 (08:01→16:35)
[2018-06-25] MEDS: OXYBUTYNIN CHLORIDE 5 MG ER TABLET PO SCH (08:01)
[2018-06-25] MEDS: FUROSEMIDE 20 MG TABLET PO SCH (08:01)
[2018-06-25] MEDS: AmLODIPine BESYLATE 10 MG TABLET PO SCH (08:02)
[2018-06-25] MEDS: RisperiDONE 2 MG TABLET PO SCH ×2 (08:02→16:35)
[2018-06-25 08:34] VITALS: BP 118/73
[2018-06-25 16:04] VITALS: BP 123/97
[2018-06-25] MEDS: DIVALPROEX SODIUM 500 MG DR TABLET PO SCH (20:43)
[2018-06-25] MEDS: ZOLPIDEM TARTRATE 10 MG TABLET PO PRN (21:36)
[2018-06-26 01:09] VITALS: BP 137/81
[2018-06-26] MEDS: LEVOTHYROXINE SODIUM 50 MCG TABLET PO SCH (06:35)
[2018-06-26] MEDS ORDERED: OXYB5XL PO (07:58)
[2018-06-26] MEDS ORDERED: FURO20 PO (07:58)
[2018-06-26] MEDS ORDERED: OMEG-135 PO (08:11)
[2018-06-26 08:17] VITALS: BP 129/77
[2018-06-26] MEDS: CLOPIDOGREL BISULFATE 75 MG TABLET PO SCH (08:18)
[2018-06-26] MEDS: DOCUSATE SODIUM 100 MG CAPSULE PO SCH (08:18)
[2018-06-26] MEDS: AmLODIPine BESYLATE 10 MG TABLET PO SCH (08:18)
[2018-06-26] MEDS: CARBIDOPA/LEVODOPA 25-100 MG TABLET PO SCH (08:18)
[2018-06-26] MEDS: METOPROLOL TARTRATE 50 MG TABLET PO SCH (08:18)
[2018-06-26] MEDS: RisperiDONE 2 MG TABLET PO SCH (08:18)
[2018-06-26] MEDS: FUROSEMIDE 20 MG TABLET PO SCH (08:18)
[2018-06-26] MEDS: OXYBUTYNIN CHLORIDE 5 MG ER TABLET PO SCH (08:18)
[2018-06-26] MEDS ORDERED: OMEGA-3/DHA/EPA/FISH OIL 1,000 MG CAPSULE PO SCH (09:00)
== END 2018-06-26 09:30 | disposition home or self-care (01) | DRG 885 ==
LOC: B2X 22:40
PROVIDERS: ADMIT Psychiatry & Neurology Psychiatry; ATTEND Psychiatry & Neurology Psychiatry
PROC: 3E0234Z Introduction of Serum, Toxoid and Vaccine into Muscle, Percutaneous Approach (ICD-10-PCS; principal; 2018-06-22)
DX: F20.0 Paranoid schizophrenia (principal); R45.851 Suicidal ideations; G20 Parkinson's disease; E55.9 Vitamin D deficiency, unspecified; G40.909 Epilepsy, unspecified, not intractable, without status epilepticus; G47.00 Insomnia, unspecified; I10 Essential (primary) hypertension; I48.91 Unspecified atrial fibrillation; E03.9 Hypothyroidism, unspecified; J44.9 Chronic obstructive pulmonary disease, unspecified; K21.9 Gastro-esophageal reflux disease without esophagitis; M19.90 Unspecified osteoarthritis, unspecified site; Z95.0 Presence of cardiac pacemaker; Z23 Encounter for immunization
CPT/HCPCS: 83036; 84439; 84443; 87081; 90686; 90732; J3535

== ENCOUNTER 2018-07-30 16:37 | Emergency (ER) | payer MEDICARE, MEDICAID ==
[~2018-07-30] VITALS: Ht 180.3 cm; Wt 113.6 kg
[~2018-07-30 16:37] MED LIST changes: -DSS100 PO; +OMEG-135 PO; -OXYB5 PO; +OXYB5XL PO
[2018-07-30] MEDS ORDERED: IBUPROFEN 600 MG TABLET PO ONE (17:30)
[2018-07-30 17:49] LABS: BASOPHILS % (AUTO) 0.8 % (0.0-2.0); EOSINOPHILS % (AUTO) 1.2 % (1.0-6.0); HEMATOCRIT 40.5 % (41-53); HEMOGLOBIN 13.7 g/dL (13.5-17.5); LYMPHOCYTES # (AUTO) 1.9 K/uL (1.0-4.8); LYMPHOCYTES % (AUTO) 28.2 % (22.0-44.0); MEAN CORPUSCULAR HEMOGLOBIN 29.1 pg (26.0-34.0); MEAN CORPUSCULAR HGB CONC 33.8 G/dL (31.0-37.0); MEAN CORPUSCULAR VOLUME 86 fL (80-100); MONOCYTES # (AUTO) 0.9 K/uL (0.1-1.0); MONOCYTES % (AUTO) 13.2 % (2.0-9.0); NEUTROPHILS # (AUTO) 3.8 K/uL (1.8-7.7); NEUTROPHILS % (AUTO) 56.6 % (40.0-70.0); PLATELET COUNT (AUTO) 239 K/uL (150-450); RED BLOOD CELL COUNT(AUTO) 4.69 MIL/uL (4.50-5.90); RED CELL DISTRIBUTION WIDTH 14.4 % (11.5-14.5)
[2018-07-30 18:44] LABS: ANION GAP 8 mmol/L (8-16); CALCIUM, TOTAL 9.3 mg/dL (8.8-10.5); CARBON DIOXIDE 30 mmol/L (22-29); CHLORIDE 97 mmol/L (98-107); CREATININE 0.95 mg/dL (0.60-1.30); GLOMERULAR FILTR. RATE CALC > 60 mL/min (>60); GLUCOSE,RANDOM 91 mg/dL (70-110); POTASSIUM 4.1 mmol/L (3.5-5.1); SODIUM SERUM 135 mmol/L (136-145); UREA NITROGEN, BLOOD 10 mg/dL (7-18)
[2018-07-30 19:07] LABS: ALANINE AMINOTRANSFERASE 17 U/L (12-78); ALBUMIN 3.9 g/dL (3.4-5.0); ALKALINE PHOSPHATASE 73 U/L (46-116); ASPARTATE AMINOTRANSFERASE 21 U/L (15-37); BILIRUBIN,TOTAL 0.5 mg/dL (0.1-1.0); CREATINE KINASE, TOTAL ONLY 137 U/L (39-308)
[2018-07-30 19:42] VITALS: BP 136/68
== END 2018-07-30 20:09 | disposition home or self-care (01) ==
LOC: EMS 16:39
DX: M25.512 Pain in left shoulder (principal); M25.511 Pain in right shoulder; I48.91 Unspecified atrial fibrillation; F20.9 Schizophrenia, unspecified; F41.9 Anxiety disorder, unspecified; F32.9 Major depressive disorder, single episode, unspecified; J44.9 Chronic obstructive pulmonary disease, unspecified; I10 Essential (primary) hypertension; F12.90 Cannabis use, unspecified, uncomplicated; Z79.01 Long term (current) use of anticoagulants; Z79.899 Other long term (current) drug therapy
CPT/HCPCS: 93005

== ENCOUNTER 2018-08-07 21:10 | Emergency (ER) | payer MEDICARE, MEDICAID ==
[~2018-08-07] VITALS: Ht 180.3 cm; Wt 9.6 kg
[2018-08-07 21:46] LABS: BASOPHILS % (AUTO) 0.6 % (0.0-2.0); EOSINOPHILS % (AUTO) 1.8 % (1.0-6.0); HEMATOCRIT 40.9 % (41-53); HEMOGLOBIN 13.6 g/dL (13.5-17.5); LYMPHOCYTES # (AUTO) 1.7 K/uL (1.0-4.8); LYMPHOCYTES % (AUTO) 31.8 % (22.0-44.0); MEAN CORPUSCULAR HEMOGLOBIN 28.9 pg (26.0-34.0); MEAN CORPUSCULAR HGB CONC 33.3 G/dL (31.0-37.0); MEAN CORPUSCULAR VOLUME 87 fL (80-100); MONOCYTES # (AUTO) 0.7 K/uL (0.1-1.0); MONOCYTES % (AUTO) 12.7 % (2.0-9.0); NEUTROPHILS # (AUTO) 2.8 K/uL (1.8-7.7); NEUTROPHILS % (AUTO) 53.1 % (40.0-70.0); PLATELET COUNT (AUTO) 256 K/uL (150-450); RED BLOOD CELL COUNT(AUTO) 4.72 MIL/uL (4.50-5.90); RED CELL DISTRIBUTION WIDTH 14.4 % (11.5-14.5)
[2018-08-07 22:09] LABS: ALANINE AMINOTRANSFERASE 5 U/L (12-78); ALBUMIN 3.7 g/dL (3.4-5.0); ALKALINE PHOSPHATASE 102 U/L (46-116); ANION GAP 7 mmol/L (8-16); ASPARTATE AMINOTRANSFERASE 15 U/L (15-37); BILIRUBIN,TOTAL 0.4 mg/dL (0.1-1.0); CALCIUM, TOTAL 9.1 mg/dL (8.8-10.5); CARBON DIOXIDE 31 mmol/L (22-29); CHLORIDE 101 mmol/L (98-107); CREATININE 1.05 mg/dL (0.60-1.30); GLOMERULAR FILTR. RATE CALC > 60 mL/min (>60); GLUCOSE,RANDOM 124 mg/dL (70-110); SODIUM SERUM 139 mmol/L (136-145); TOTAL PROTEIN, SERUM 7.5 g/dL (6.4-8.2); UREA NITROGEN, BLOOD 17 mg/dL (7-18); VALPROIC ACID 72 mcg/mL (50-100)
[2018-08-07 22:14] LABS: AMPHET/METH SCREEN,URINE NEGATIVE (NEGATIVE); BARBITURATE SCREEN, URINE NEGATIVE (NEGATIVE); BENZODIAZEPINES SCREEN,URINE NEGATIVE (NEGATIVE); CANNABINOID SCREEN,URINE NEGATIVE (NEGATIVE); COCAINE SCREEN,URINE NEGATIVE (NEGATIVE); METHADONE SCREEN, URINE NEGATIVE (NEGATIVE); OPIATE SCREEN,URINE NEGATIVE (NEGATIVE); PHENCYCLIDINE SCREEN,URINE NEGATIVE (NEGATIVE)
[2018-08-07] MEDS ORDERED: QUEtiapine FUMARATE 100 MG TABLET PO ONE (23:00)
[2018-08-07] MEDS ORDERED: LORazepam 2 MG TABLET PO ONE (23:00)
[2018-08-08 00:59] VITALS: BP 119/82
== END 2018-08-08 01:04 | disposition home or self-care (01) ==
LOC: EMS 21:10
DX: F25.9 Schizoaffective disorder, unspecified (principal); E87.6 Hypokalemia; F31.9 Bipolar disorder, unspecified; F41.9 Anxiety disorder, unspecified; I48.91 Unspecified atrial fibrillation; J44.9 Chronic obstructive pulmonary disease, unspecified; F12.90 Cannabis use, unspecified, uncomplicated; Z88.8 Allergy status to other drugs, medicaments and biological substances; Z79.899 Other long term (current) drug therapy
CPT/HCPCS: 36415; 80053; 80164; 80307; 85025; 99284; G0480

== ENCOUNTER 2018-09-13 23:06 | Inpatient (IN) | payer MEDICARE, MEDICAID ==
[~2018-09-13] VITALS: Ht 180.3 cm; Wt 108.4 kg
[2018-09-13 23:49] LABS: BASOPHILS % (AUTO) 0.9 % (0.0-2.0); HEMATOCRIT 41.5 % (41-53); HEMOGLOBIN 13.7 g/dL (13.5-17.5); LYMPHOCYTES # (AUTO) 2.2 K/uL (1.0-4.8); LYMPHOCYTES % (AUTO) 33.2 % (22.0-44.0); MEAN CORPUSCULAR HEMOGLOBIN 28.2 pg (26.0-34.0); MEAN CORPUSCULAR HGB CONC 33.1 G/dL (31.0-37.0); MEAN CORPUSCULAR VOLUME 85 fL (80-100); MONOCYTES # (AUTO) 0.9 K/uL (0.1-1.0); MONOCYTES % (AUTO) 13.6 % (2.0-9.0); NEUTROPHILS # (AUTO) 3.3 K/uL (1.8-7.7); NEUTROPHILS % (AUTO) 50.3 % (40.0-70.0); PLATELET COUNT (AUTO) 268 K/uL (150-450); RED BLOOD CELL COUNT(AUTO) 4.88 MIL/uL (4.50-5.90); RED CELL DISTRIBUTION WIDTH 14.7 % (11.5-14.5)
[2018-09-14 00:10] LABS: ANION GAP 2 mmol/L (8-16); CARBON DIOXIDE 34 mmol/L (22-29); CHLORIDE 100 mmol/L (98-107); CREATININE 1.03 mg/dL (0.60-1.30); GLOMERULAR FILTR. RATE CALC > 60 mL/min (>60); GLUCOSE,RANDOM 106 mg/dL (70-110); SODIUM SERUM 136 mmol/L (136-145); UREA NITROGEN, BLOOD 13 mg/dL (7-18)
[2018-09-14 00:18] LABS: ALBUMIN 3.3 g/dL (3.4-5.0); ALKALINE PHOSPHATASE 84 U/L (46-116); ASPARTATE AMINOTRANSFERASE 12 U/L (15-37); BILIRUBIN,TOTAL 0.3 mg/dL (0.1-1.0); TOTAL PROTEIN, SERUM 7.2 g/dL (6.4-8.2); VALPROIC ACID 100 mcg/mL (50-100)
[2018-09-14 00:26] LABS: ALANINE AMINOTRANSFERASE 7 U/L (12-78)
[2018-09-14] MEDS ORDERED: QUEtiapine FUMARATE 100 MG TABLET PO PRN (01:15)
[2018-09-14] MEDS ORDERED: LORazepam 2 MG TABLET PO PRN (01:15)
[2018-09-14 03:49] VITALS: BP 138/87
[2018-09-14 08:46] VITALS: BP 143/93
[2018-09-14] MEDS: RisperiDONE 2 MG TABLET PO SCH ×2 (10:20→16:41)
[2018-09-14] MEDS ORDERED: BACITRACIN 28.4 GM OINTMENT TP PRN (10:45)
[2018-09-14] MEDS ORDERED: LOPERAMIDE HCL 2 MG CAPSULE PO PRN (10:45)
[2018-09-14] MEDS ORDERED: IBUPROFEN 600 MG TABLET PO PRN (10:45)
[2018-09-14] MEDS ORDERED: PETROLATUM,WHITE 28 GM JELLY TP PRN (10:45)
[2018-09-14] MEDS ORDERED: ALBUTEROL SULFATE HFA 90 MCG/PUFF 8 GM INHALER IH PRN (10:45)
[2018-09-14] MEDS ORDERED: ONDANSETRON HCL 4 MG TABLET PO PRN (10:45)
[2018-09-14] MEDS ORDERED: MAG HYDROX/AL HYDROX/SIMETH ES 30 ML SUSPENSION UDCUP PO PRN (10:45)
[2018-09-14] MEDS ORDERED: ACETAMINOPHEN 325 MG TABLET PO PRN (10:45)
[2018-09-14] MEDS ORDERED: CloNIDine HCL 0.1 MG TABLET PO PRN (10:45)
[2018-09-14] MEDS ORDERED: BENZOCAINE/MENTHOL LOZENGE MM PRN (10:45)
[2018-09-14] MEDS ORDERED: MAGNESIUM HYDROXIDE SUSPENSION 30 ML UDCUP PO PRN (10:45)
[2018-09-14] MEDS: CARBIDOPA/LEVODOPA 25-100 MG ER TABLET PO SCH ×2 (13:00→16:41)
[2018-09-14 16:24] VITALS: BP 138/89
[2018-09-14] MEDS: METOPROLOL TARTRATE 50 MG TABLET PO SCH (16:41)
[2018-09-14] MEDS: DIVALPROEX SODIUM 500 MG DR TABLET PO SCH (20:11)
[2018-09-14] MEDS: ZOLPIDEM TARTRATE 10 MG TABLET PO PRN (20:20)
[2018-09-15 00:40] VITALS: BP 131/82
[2018-09-15] MEDS: LEVOTHYROXINE SODIUM 50 MCG TABLET PO SCH (07:14)
[2018-09-15] MEDS: AmLODIPine BESYLATE 10 MG TABLET PO SCH (08:42)
[2018-09-15] MEDS: METOPROLOL TARTRATE 50 MG TABLET PO SCH ×2 (08:42→16:33)
[2018-09-15] MEDS: PANTOPRAZOLE SODIUM 40 MG DR TABLET PO SCH (08:42)
[2018-09-15] MEDS: OMEGA-3/DHA/EPA/FISH OIL 1,000 MG CAPSULE PO SCH (08:42)
[2018-09-15] MEDS: OXYBUTYNIN CHLORIDE 5 MG ER TABLET PO SCH (08:42)
[2018-09-15] MEDS: DOCUSATE SODIUM 100 MG CAPSULE PO SCH (08:42)
[2018-09-15] MEDS: RisperiDONE 2 MG TABLET PO SCH ×2 (08:42→16:34)
[2018-09-15] MEDS: CARBIDOPA/LEVODOPA 25-100 MG ER TABLET PO SCH ×3 (08:42→16:33)
[2018-09-15] MEDS: CLOPIDOGREL BISULFATE 75 MG TABLET PO SCH (08:42)
[2018-09-15] MEDS: FUROSEMIDE 20 MG TABLET PO SCH (08:43)
[2018-09-15 08:48] VITALS: BP 152/110
[2018-09-15] MEDS ORDERED: OMEPRAZOLE 20 MG CAPSULE PO SCH (09:00)
[2018-09-15] MEDS ORDERED: PROPRANOLOL HCL 10 MG TABLET PO SCH (13:00)
[2018-09-15 16:11] VITALS: BP 140/91
[2018-09-15] MEDS: DIVALPROEX SODIUM 500 MG DR TABLET PO SCH (20:00)
[2018-09-15] MEDS: ZOLPIDEM TARTRATE 10 MG TABLET PO PRN (20:57)
[2018-09-16 06:01] VITALS: BP 134/88
[2018-09-16] MEDS: LEVOTHYROXINE SODIUM 50 MCG TABLET PO SCH (06:27)
[2018-09-16] MEDS: DOCUSATE SODIUM 100 MG CAPSULE PO SCH (08:32)
[2018-09-16] MEDS: PANTOPRAZOLE SODIUM 40 MG DR TABLET PO SCH (08:32)
[2018-09-16] MEDS: FUROSEMIDE 20 MG TABLET PO SCH (08:32)
[2018-09-16] MEDS: AmLODIPine BESYLATE 10 MG TABLET PO SCH (08:32)
[2018-09-16] MEDS: RisperiDONE 2 MG TABLET PO SCH ×2 (08:32→17:02)
[2018-09-16] MEDS: OXYBUTYNIN CHLORIDE 5 MG ER TABLET PO SCH (08:33)
[2018-09-16] MEDS: OMEGA-3/DHA/EPA/FISH OIL 1,000 MG CAPSULE PO SCH (08:33)
[2018-09-16] MEDS: CARBIDOPA/LEVODOPA 25-100 MG ER TABLET PO SCH ×3 (08:33→17:02)
[2018-09-16] MEDS: METOPROLOL TARTRATE 50 MG TABLET PO SCH ×2 (08:34→17:02)
[2018-09-16] MEDS: CLOPIDOGREL BISULFATE 75 MG TABLET PO SCH (08:34)
[2018-09-16 08:51] VITALS: BP 146/85
[2018-09-16 16:10] VITALS: BP 140/86
[2018-09-16] MEDS: OXYBUTYNIN CHLORIDE 5 MG TABLET PO SCH (17:02)
[2018-09-16] MEDS: DIVALPROEX SODIUM 500 MG DR TABLET PO SCH (20:47)
[2018-09-17 01:38] VITALS: BP 140/83
[2018-09-17] MEDS: LEVOTHYROXINE SODIUM 50 MCG TABLET PO SCH (06:28)
[2018-09-17 08:16] VITALS: BP 154/83
[2018-09-17] MEDS: OMEGA-3/DHA/EPA/FISH OIL 1,000 MG CAPSULE PO SCH (08:21)
[2018-09-17] MEDS: METOPROLOL TARTRATE 50 MG TABLET PO SCH ×2 (08:21→17:14)
[2018-09-17] MEDS: FUROSEMIDE 20 MG TABLET PO SCH (08:21)
[2018-09-17] MEDS: CARBIDOPA/LEVODOPA 25-100 MG ER TABLET PO SCH ×3 (08:21→17:14)
[2018-09-17] MEDS: DOCUSATE SODIUM 100 MG CAPSULE PO SCH (08:21)
[2018-09-17] MEDS: OXYBUTYNIN CHLORIDE 5 MG TABLET PO SCH ×3 (08:21→17:14)
[2018-09-17] MEDS: CLOPIDOGREL BISULFATE 75 MG TABLET PO SCH (08:21)
[2018-09-17] MEDS: RisperiDONE 2 MG TABLET PO SCH ×2 (08:21→17:14)
[2018-09-17] MEDS: PANTOPRAZOLE SODIUM 40 MG DR TABLET PO SCH (08:21)
[2018-09-17] MEDS: AmLODIPine BESYLATE 10 MG TABLET PO SCH (08:21)
[2018-09-17 10:00] VITALS: BP 145/85
[2018-09-17 16:19] VITALS: BP 138/80
[2018-09-17] MEDS: DIVALPROEX SODIUM 500 MG DR TABLET PO SCH (21:41)
[2018-09-18 00:04] VITALS: BP 145/87
[2018-09-18] MEDS: LEVOTHYROXINE SODIUM 50 MCG TABLET PO SCH (06:50)
[2018-09-18] MEDS: OXYBUTYNIN CHLORIDE 5 MG TABLET PO SCH ×3 (08:24→16:26)
[2018-09-18] MEDS: RisperiDONE 2 MG TABLET PO SCH ×2 (08:24→16:24)
[2018-09-18] MEDS: FUROSEMIDE 20 MG TABLET PO SCH (08:24)
[2018-09-18] MEDS: DOCUSATE SODIUM 100 MG CAPSULE PO SCH (08:24)
[2018-09-18] MEDS: AmLODIPine BESYLATE 10 MG TABLET PO SCH (08:24)
[2018-09-18] MEDS: CARBIDOPA/LEVODOPA 25-100 MG ER TABLET PO SCH ×3 (08:25→16:23)
[2018-09-18] MEDS: METOPROLOL TARTRATE 50 MG TABLET PO SCH ×2 (08:25→16:24)
[2018-09-18] MEDS: CLOPIDOGREL BISULFATE 75 MG TABLET PO SCH (08:25)
[2018-09-18] MEDS: OMEGA-3/DHA/EPA/FISH OIL 1,000 MG CAPSULE PO SCH (08:25)
[2018-09-18] MEDS: PANTOPRAZOLE SODIUM 40 MG DR TABLET PO SCH (08:25)
[2018-09-18 08:38] VITALS: BP 133/82
[2018-09-18] MEDS ORDERED: DENTURE ADHESIVE 68 GM CREAM DT PRN (13:00)
[2018-09-18] MEDS ORDERED: BENZOCAINE 20% 11.9 GM GEL TP PRN (13:00)
[2018-09-18 16:57] VITALS: BP 140/75
[2018-09-18] MEDS: DIVALPROEX SODIUM 500 MG DR TABLET PO SCH (20:08)
[2018-09-18] MEDS: ZOLPIDEM TARTRATE 10 MG TABLET PO PRN (21:49)
[2018-09-19 06:27] VITALS: BP 141/83
[2018-09-19] MEDS: LEVOTHYROXINE SODIUM 50 MCG TABLET PO SCH (07:18)
[2018-09-19] MEDS: METOPROLOL TARTRATE 50 MG TABLET PO SCH (08:09)
[2018-09-19] MEDS: DOCUSATE SODIUM 100 MG CAPSULE PO SCH (08:09)
[2018-09-19] MEDS: CLOPIDOGREL BISULFATE 75 MG TABLET PO SCH (08:09)
[2018-09-19] MEDS: CARBIDOPA/LEVODOPA 25-100 MG ER TABLET PO SCH ×2 (08:09→12:07)
[2018-09-19] MEDS: FUROSEMIDE 20 MG TABLET PO SCH (08:10)
[2018-09-19] MEDS: OMEGA-3/DHA/EPA/FISH OIL 1,000 MG CAPSULE PO SCH (08:10)
[2018-09-19] MEDS: AmLODIPine BESYLATE 10 MG TABLET PO SCH (08:10)
[2018-09-19] MEDS ORDERED: OXYB5 PO (08:10)
[2018-09-19] MEDS: PANTOPRAZOLE SODIUM 40 MG DR TABLET PO SCH (08:10)
[2018-09-19] MEDS: RisperiDONE 2 MG TABLET PO SCH (08:10)
[2018-09-19] MEDS: OXYBUTYNIN CHLORIDE 5 MG TABLET PO SCH ×2 (08:10→12:06)
[2018-09-19 09:33] VITALS: BP 138/74
== END 2018-09-19 12:20 | disposition home or self-care (01) | DRG 885 ==
LOC: EMS 23:08 → B2X 09-14 02:00 → B2S 09-16 09:18
PROVIDERS: ADMIT Psychiatry & Neurology Psychiatry; ATTEND Psychiatry & Neurology Psychiatry
DX: F25.9 Schizoaffective disorder, unspecified (principal); R45.851 Suicidal ideations; E03.9 Hypothyroidism, unspecified; E55.9 Vitamin D deficiency, unspecified; F31.9 Bipolar disorder, unspecified; F41.9 Anxiety disorder, unspecified; G20 Parkinson's disease; G40.909 Epilepsy, unspecified, not intractable, without status epilepticus; G47.00 Insomnia, unspecified; I10 Essential (primary) hypertension; I48.91 Unspecified atrial fibrillation; J44.9 Chronic obstructive pulmonary disease, unspecified; K21.9 Gastro-esophageal reflux disease without esophagitis; F12.90 Cannabis use, unspecified, uncomplicated; M19.90 Unspecified osteoarthritis, unspecified site; Z86.12 Personal history of poliomyelitis; Z87.891 Personal history of nicotine dependence; Z95.0 Presence of cardiac pacemaker; Z88.8 Allergy status to other drugs, medicaments and biological substances
CPT/HCPCS: G0480

== ENCOUNTER 2018-09-23 23:03 | Inpatient (IN) | payer MEDICARE, MEDICAID ==
[~2018-09-23] VITALS: Ht 180.3 cm; Wt 107.1 kg
[~2018-09-23 23:03] MED LIST changes: -OMEG-135 PO; +OXYB5 PO; -OXYB5XL PO
[2018-09-23 23:42] LABS: BASOPHILS % (AUTO) 0.6 % (0.0-2.0); EOSINOPHILS % (AUTO) 1.2 % (1.0-6.0); HEMATOCRIT 41.4 % (41-53); HEMOGLOBIN 13.6 g/dL (13.5-17.5); LYMPHOCYTES # (AUTO) 1.9 K/uL (1.0-4.8); LYMPHOCYTES % (AUTO) 27.5 % (22.0-44.0); MEAN CORPUSCULAR HGB CONC 32.8 G/dL (31.0-37.0); MEAN CORPUSCULAR VOLUME 85 fL (80-100); MONOCYTES # (AUTO) 0.9 K/uL (0.1-1.0); MONOCYTES % (AUTO) 13.4 % (2.0-9.0); NEUTROPHILS # (AUTO) 3.9 K/uL (1.8-7.7); NEUTROPHILS % (AUTO) 57.3 % (40.0-70.0); PLATELET COUNT (AUTO) 268 K/uL (150-450); RED BLOOD CELL COUNT(AUTO) 4.85 MIL/uL (4.50-5.90); RED CELL DISTRIBUTION WIDTH 14.9 % (11.5-14.5)
[2018-09-23 23:51] LABS: ANION GAP 6 mmol/L (8-16); CALCIUM, TOTAL 9.3 mg/dL (8.8-10.5); CARBON DIOXIDE 32 mmol/L (22-29); CHLORIDE 99 mmol/L (98-107); CREATININE 1.21 mg/dL (0.60-1.30); GLOMERULAR FILTR. RATE CALC 60 mL/min (>60); GLUCOSE,RANDOM 113 mg/dL (70-110); POTASSIUM 3.5 mmol/L (3.5-5.1); SODIUM SERUM 137 mmol/L (136-145); UREA NITROGEN, BLOOD 21 mg/dL (7-18)
[2018-09-23 23:56] LABS: ALANINE AMINOTRANSFERASE 7 U/L (12-78); ALBUMIN 3.3 g/dL (3.4-5.0); ALKALINE PHOSPHATASE 75 U/L (46-116); ASPARTATE AMINOTRANSFERASE 15 U/L (15-37); BILIRUBIN,TOTAL 0.6 mg/dL (0.1-1.0); TOTAL PROTEIN, SERUM 7.2 g/dL (6.4-8.2)
[2018-09-24 00:38] LABS: AMPHET/METH SCREEN,URINE NEGATIVE (NEGATIVE); BARBITURATE SCREEN, URINE NEGATIVE (NEGATIVE); BENZODIAZEPINES SCREEN,URINE NEGATIVE (NEGATIVE); CANNABINOID SCREEN,URINE NEGATIVE (NEGATIVE); COCAINE SCREEN,URINE NEGATIVE (NEGATIVE); METHADONE SCREEN, URINE NEGATIVE (NEGATIVE); OPIATE SCREEN,URINE NEGATIVE (NEGATIVE)
[2018-09-24 00:39] LABS: PHENCYCLIDINE SCREEN,URINE NEGATIVE (NEGATIVE)
[2018-09-24] MEDS ORDERED: QUEtiapine FUMARATE 100 MG TABLET PO PRN (03:00)
[2018-09-24] MEDS ORDERED: ZOLPIDEM TARTRATE 10 MG TABLET PO PRN (03:00)
[2018-09-24] MEDS ORDERED: LORazepam 2 MG TABLET PO PRN (03:00)
[2018-09-24 04:26] LABS: APPEARANCE,URINE CLEAR (CLEAR); BILIRUBIN,URINE NEGATIVE (NEGATIVE); GLUCOSE, URINE (UA) NEGATIVE (NEGATIVE); KETONES,URINE NEGATIVE (NEGATIVE); LEUKOCYTE ESTERASE ,URINE NEGATIVE (NEGATIVE); NITRATE,URINE NEGATIVE (NEGATIVE); OCCULT BLOOD,URINE NEGATIVE (NEGATIVE); PROTEIN,URINE TRACE (NEGATIVE); UROBILINOGEN,URINE 0.2 mg/dL (<=1.0)
[2018-09-24 04:45] VITALS: BP 140/81
[2018-09-24] MEDS ORDERED: BACITRACIN 28.4 GM OINTMENT TP PRN (07:00)
[2018-09-24] MEDS ORDERED: CloNIDine HCL 0.1 MG TABLET PO PRN (07:00)
[2018-09-24] MEDS ORDERED: PETROLATUM,WHITE 28 GM JELLY TP PRN (07:00)
[2018-09-24] MEDS ORDERED: ONDANSETRON HCL 4 MG TABLET PO PRN (07:00)
[2018-09-24] MEDS ORDERED: LOPERAMIDE HCL 2 MG CAPSULE PO PRN (07:00)
[2018-09-24] MEDS ORDERED: ACETAMINOPHEN 325 MG TABLET PO PRN (07:00)
[2018-09-24] MEDS ORDERED: ALBUTEROL SULFATE HFA 90 MCG/PUFF 8 GM INHALER IH PRN (07:00)
[2018-09-24] MEDS ORDERED: MAG HYDROX/AL HYDROX/SIMETH ES 30 ML SUSPENSION UDCUP PO PRN (07:00)
[2018-09-24] MEDS ORDERED: MAGNESIUM HYDROXIDE SUSPENSION 30 ML UDCUP PO PRN (07:00)
[2018-09-24] MEDS ORDERED: IBUPROFEN 600 MG TABLET PO PRN (07:00)
[2018-09-24] MEDS: LEVOTHYROXINE SODIUM 50 MCG TABLET PO SCH (07:11)
[2018-09-24 08:00] VITALS: BP 144/83
[2018-09-24] MEDS: AmLODIPine BESYLATE 10 MG TABLET PO SCH (08:47)
[2018-09-24] MEDS: CLOPIDOGREL BISULFATE 75 MG TABLET PO SCH (08:47)
[2018-09-24] MEDS: FUROSEMIDE 20 MG TABLET PO SCH (08:48)
[2018-09-24] MEDS: METOPROLOL TARTRATE 50 MG TABLET PO SCH ×2 (08:48→16:51)
[2018-09-24] MEDS: DOCUSATE SODIUM 100 MG CAPSULE PO SCH (08:48)
[2018-09-24] MEDS: CARBIDOPA/LEVODOPA 25-100 MG TABLET PO SCH ×3 (08:48→16:06)
[2018-09-24] MEDS: PANTOPRAZOLE SODIUM 40 MG DR TABLET PO SCH (08:48)
[2018-09-24] MEDS: OMEGA-3/DHA/EPA/FISH OIL 1,000 MG CAPSULE PO SCH (08:48)
[2018-09-24] MEDS: OXYBUTYNIN CHLORIDE 5 MG TABLET PO SCH ×3 (08:48→16:06)
[2018-09-24] MEDS ORDERED: OMEPRAZOLE 20 MG CAPSULE PO SCH (09:00)
[2018-09-24 17:00] VITALS: BP 117/67
[2018-09-24] MEDS: DOCOSANOL 10% 2 GM CREAM TP SCH ×2 (17:21→21:23)
[2018-09-25] MEDS: DOCOSANOL 10% 2 GM CREAM TP SCH ×5 (06:17→22:34)
[2018-09-25] MEDS: LEVOTHYROXINE SODIUM 50 MCG TABLET PO SCH (06:18)
[2018-09-25 09:25] VITALS: BP 164/89
[2018-09-25] MEDS: OXYBUTYNIN CHLORIDE 5 MG TABLET PO SCH ×3 (09:27→16:11)
[2018-09-25] MEDS: OMEGA-3/DHA/EPA/FISH OIL 1,000 MG CAPSULE PO SCH (09:27)
[2018-09-25] MEDS: DOCUSATE SODIUM 100 MG CAPSULE PO SCH (09:27)
[2018-09-25] MEDS: MULTIVITAMINS WITH MINERALS, THERAPEUTIC TABLET PO SCH (09:28)
[2018-09-25] MEDS: AmLODIPine BESYLATE 10 MG TABLET PO SCH (09:28)
[2018-09-25] MEDS: METOPROLOL TARTRATE 50 MG TABLET PO SCH ×2 (09:28→16:11)
[2018-09-25] MEDS: CARBIDOPA/LEVODOPA 25-100 MG TABLET PO SCH ×3 (09:28→16:11)
[2018-09-25] MEDS: PANTOPRAZOLE SODIUM 40 MG DR TABLET PO SCH (09:28)
[2018-09-25] MEDS: CLOPIDOGREL BISULFATE 75 MG TABLET PO SCH (09:29)
[2018-09-25] MEDS: FUROSEMIDE 20 MG TABLET PO SCH (09:30)
[2018-09-26] MEDS: DOCOSANOL 10% 2 GM CREAM TP SCH ×5 (05:59→21:51)
[2018-09-26] MEDS: LEVOTHYROXINE SODIUM 50 MCG TABLET PO SCH (05:59)
[2018-09-26] MEDS: BENZOCAINE/MENTHOL LOZENGE MM PRN ×6 (06:47→19:57)
[2018-09-26 08:00] VITALS: BP 152/98
[2018-09-26] MEDS: DOCUSATE SODIUM 100 MG CAPSULE PO SCH (09:03)
[2018-09-26] MEDS: OXYBUTYNIN CHLORIDE 5 MG TABLET PO SCH ×3 (09:03→16:04)
[2018-09-26] MEDS: OMEGA-3/DHA/EPA/FISH OIL 1,000 MG CAPSULE PO SCH (09:03)
[2018-09-26] MEDS: MULTIVITAMINS WITH MINERALS, THERAPEUTIC TABLET PO SCH (09:04)
[2018-09-26] MEDS: AmLODIPine BESYLATE 10 MG TABLET PO SCH (09:04)
[2018-09-26] MEDS: PANTOPRAZOLE SODIUM 40 MG DR TABLET PO SCH (09:04)
[2018-09-26] MEDS: FUROSEMIDE 20 MG TABLET PO SCH (09:04)
[2018-09-26] MEDS: CARBIDOPA/LEVODOPA 25-100 MG TABLET PO SCH ×3 (09:04→16:04)
[2018-09-26] MEDS: CLOPIDOGREL BISULFATE 75 MG TABLET PO SCH (09:04)
[2018-09-26] MEDS: METOPROLOL TARTRATE 50 MG TABLET PO SCH ×2 (09:05→16:04)
[2018-09-26 16:49] VITALS: BP 150/98
[2018-09-27 01:53] VITALS: BP 147/83
[2018-09-27] MEDS: DOCOSANOL 10% 2 GM CREAM TP SCH ×3 (06:10→14:08)
[2018-09-27] MEDS: LEVOTHYROXINE SODIUM 50 MCG TABLET PO SCH (06:49)
[2018-09-27 08:00] VITALS: BP 123/95
[2018-09-27] MEDS: OXYBUTYNIN CHLORIDE 5 MG TABLET PO SCH ×2 (08:51→12:48)
[2018-09-27] MEDS: METOPROLOL TARTRATE 50 MG TABLET PO SCH (08:51)
[2018-09-27] MEDS: CLOPIDOGREL BISULFATE 75 MG TABLET PO SCH (08:51)
[2018-09-27] MEDS: AmLODIPine BESYLATE 10 MG TABLET PO SCH (08:51)
[2018-09-27] MEDS: FUROSEMIDE 20 MG TABLET PO SCH (08:51)
[2018-09-27] MEDS: PANTOPRAZOLE SODIUM 40 MG DR TABLET PO SCH (08:51)
[2018-09-27] MEDS: DOCUSATE SODIUM 100 MG CAPSULE PO SCH (08:51)
[2018-09-27] MEDS: CARBIDOPA/LEVODOPA 25-100 MG TABLET PO SCH ×2 (08:51→12:48)
[2018-09-27] MEDS: OMEGA-3/DHA/EPA/FISH OIL 1,000 MG CAPSULE PO SCH (08:51)
[2018-09-27] MEDS: MULTIVITAMINS WITH MINERALS, THERAPEUTIC TABLET PO SCH (08:52)
[2018-09-27] MEDS ORDERED: RisperiDONE 2 MG TABLET PO SCH (10:00)
[2018-09-27] MEDS ORDERED: DIVALPROEX SODIUM 500 MG DR TABLET PO SCH (10:00)
[2018-09-27] MEDS ORDERED: DSS100 PO (12:13)
[2018-09-27] MEDS ORDERED: DOCO2CRE4 TP (12:13)
[2018-09-27] MEDS ORDERED: MULT-1239 PO (12:13)
[2018-09-27] MEDS ORDERED: PANT40TA25 PO (12:14)
[2018-09-27] MEDS ORDERED: OMEG-135 PO (12:14)
== END 2018-09-27 14:45 | disposition home or self-care (01) | DRG 885 ==
LOC: EMS 23:07 → 3EI 09-24 03:22
PROVIDERS: ADMIT Psychiatry & Neurology Psychiatry; ATTEND Psychiatry & Neurology Psychiatry
DX: F20.0 Paranoid schizophrenia (principal); R45.851 Suicidal ideations; Z95.0 Presence of cardiac pacemaker; Z87.891 Personal history of nicotine dependence; Z86.12 Personal history of poliomyelitis; M19.90 Unspecified osteoarthritis, unspecified site; J44.9 Chronic obstructive pulmonary disease, unspecified; I48.91 Unspecified atrial fibrillation; G47.00 Insomnia, unspecified; I10 Essential (primary) hypertension; K21.9 Gastro-esophageal reflux disease without esophagitis; G40.909 Epilepsy, unspecified, not intractable, without status epilepticus; G20 Parkinson's disease; F31.9 Bipolar disorder, unspecified; E55.9 Vitamin D deficiency, unspecified; E03.9 Hypothyroidism, unspecified; B00.1 Herpesviral vesicular dermatitis; F12.90 Cannabis use, unspecified, uncomplicated; R26.81 Unsteadiness on feet; Z88.8 Allergy status to other drugs, medicaments and biological substances
CPT/HCPCS: 87081; 93005; G0480

== ENCOUNTER 2018-12-13 00:17 | Inpatient (IN) | payer OTHER, MEDICAID ==
[~2018-12-13] VITALS: Ht 180.3 cm; Wt 108.0 kg
[~2018-12-13 00:17] MED LIST changes: -AMLO-512 PO; +AMLO10TA7 PO; +DOCO2CRE4 TP; +DSS100 PO; +MULT-1239 PO; +OMEG-135 PO; +PANT40TA25 PO
[2018-12-13 02:07] LABS: BASOPHILS % (AUTO) 0.6 % (0.0-2.0); EOSINOPHILS % (AUTO) 1.8 % (1.0-6.0); HEMATOCRIT 40.8 % (41-53); HEMOGLOBIN 13.2 g/dL (13.5-17.5); LYMPHOCYTES # (AUTO) 2.4 K/uL (1.0-4.8); LYMPHOCYTES % (AUTO) 35.9 % (22.0-44.0); MEAN CORPUSCULAR HEMOGLOBIN 28.7 pg (26.0-34.0); MEAN CORPUSCULAR HGB CONC 32.4 G/dL (31.0-37.0); MEAN CORPUSCULAR VOLUME 89 fL (80-100); MONOCYTES # (AUTO) 0.8 K/uL (0.1-1.0); MONOCYTES % (AUTO) 11.7 % (2.0-9.0); NEUTROPHILS # (AUTO) 3.3 K/uL (1.8-7.7); PLATELET COUNT (AUTO) 254 K/uL (150-450); RED BLOOD CELL COUNT(AUTO) 4.61 MIL/uL (4.50-5.90); RED CELL DISTRIBUTION WIDTH 16.6 % (11.5-14.5)
[2018-12-13 02:20] LABS: ANION GAP 7 mmol/L (8-16); CALCIUM, TOTAL 9.4 mg/dL (8.8-10.5); CARBON DIOXIDE 33 mmol/L (22-29); CHLORIDE 101 mmol/L (98-107); CREATININE 0.97 mg/dL (0.60-1.30); GLOMERULAR FILTR. RATE CALC > 60 mL/min (>60); GLUCOSE,RANDOM 106 mg/dL (70-110); POTASSIUM 4.3 mmol/L (3.5-5.1); SODIUM SERUM 141 mmol/L (136-145); UREA NITROGEN, BLOOD 25 mg/dL (7-18)
[2018-12-13 02:25] LABS: ALANINE AMINOTRANSFERASE 15 U/L (12-78); ALBUMIN 3.7 g/dL (3.4-5.0); ALKALINE PHOSPHATASE 78 U/L (46-116); ASPARTATE AMINOTRANSFERASE 16 U/L (15-37); BILIRUBIN,TOTAL 0.4 mg/dL (0.1-1.0); TOTAL PROTEIN, SERUM 7.3 g/dL (6.4-8.2)
[2018-12-13 03:54] LABS: AMPHET/METH SCREEN,URINE NEGATIVE (NEGATIVE); BARBITURATE SCREEN, URINE NEGATIVE (NEGATIVE); BENZODIAZEPINES SCREEN,URINE NEGATIVE (NEGATIVE); CANNABINOID SCREEN,URINE NEGATIVE (NEGATIVE); COCAINE SCREEN,URINE NEGATIVE (NEGATIVE); METHADONE SCREEN, URINE NEGATIVE (NEGATIVE); OPIATE SCREEN,URINE NEGATIVE (NEGATIVE); PHENCYCLIDINE SCREEN,URINE NEGATIVE (NEGATIVE)
[2018-12-13 04:05] LABS: VALPROIC ACID 52 mcg/mL (50-100)
[2018-12-13] MEDS ORDERED: ZOLPIDEM TARTRATE 10 MG TABLET PO PRN (05:30)
[2018-12-13] MEDS ORDERED: MAGNESIUM HYDROXIDE SUSPENSION 30 ML UDCUP PO PRN (07:45)
[2018-12-13] MEDS ORDERED: BENZOCAINE/MENTHOL LOZENGE MM PRN (07:45)
[2018-12-13] MEDS ORDERED: IBUPROFEN 600 MG TABLET PO PRN (07:45)
[2018-12-13] MEDS ORDERED: ALBUTEROL SULFATE HFA 90 MCG/PUFF 8 GM INHALER IH PRN (07:45)
[2018-12-13] MEDS ORDERED: PETROLATUM,WHITE 28 GM JELLY TP PRN (07:45)
[2018-12-13] MEDS ORDERED: MAG HYDROX/AL HYDROX/SIMETH ES 30 ML SUSPENSION UDCUP PO PRN (07:45)
[2018-12-13] MEDS ORDERED: BACITRACIN 28.4 GM OINTMENT TP PRN (07:45)
[2018-12-13] MEDS ORDERED: CloNIDine HCL 0.1 MG TABLET PO PRN (07:45)
[2018-12-13] MEDS ORDERED: ACETAMINOPHEN 325 MG TABLET PO PRN (07:45)
[2018-12-13] MEDS: CLOPIDOGREL BISULFATE 75 MG TABLET PO SCH (08:51)
[2018-12-13] MEDS: CARBIDOPA/LEVODOPA 25-100 MG ER TABLET PO SCH ×3 (08:51→16:02)
[2018-12-13] MEDS: METOPROLOL TARTRATE 50 MG TABLET PO SCH ×2 (08:51→16:02)
[2018-12-13] MEDS: OMEGA-3/DHA/EPA/FISH OIL 1,000 MG CAPSULE PO SCH (08:51)
[2018-12-13] MEDS: AmLODIPine BESYLATE 10 MG TABLET PO SCH (08:51)
[2018-12-13] MEDS: DIVALPROEX SODIUM 500 MG DR TABLET PO SCH ×2 (08:51→16:03)
[2018-12-13] MEDS: PANTOPRAZOLE SODIUM 40 MG DR TABLET PO SCH (08:51)
[2018-12-13] MEDS: DOCUSATE SODIUM 100 MG CAPSULE PO SCH (08:51)
[2018-12-13] MEDS: OXYBUTYNIN CHLORIDE 5 MG TABLET PO SCH ×3 (08:52→16:03)
[2018-12-13] MEDS ORDERED: OMEPRAZOLE 20 MG CAPSULE PO SCH (09:00)
[2018-12-13 11:06] VITALS: BP 136/80
[2018-12-13] MEDS ORDERED: DIVALPROEX SODIUM 500 MG DR TABLET PO SCH (11:30)
[2018-12-13] MEDS: RisperiDONE 2 MG TABLET PO SCH (16:03)
[2018-12-13 16:59] VITALS: BP 136/68
[2018-12-14 02:06] VITALS: BP 131/77
[2018-12-14] MEDS: LEVOTHYROXINE SODIUM 50 MCG TABLET PO SCH (07:02)
[2018-12-14] MEDS: DOCUSATE SODIUM 100 MG CAPSULE PO SCH (08:13)
[2018-12-14] MEDS: PANTOPRAZOLE SODIUM 40 MG DR TABLET PO SCH (08:14)
[2018-12-14] MEDS: AmLODIPine BESYLATE 10 MG TABLET PO SCH (08:14)
[2018-12-14] MEDS: OMEGA-3/DHA/EPA/FISH OIL 1,000 MG CAPSULE PO SCH (08:14)
[2018-12-14] MEDS: RisperiDONE 2 MG TABLET PO SCH ×2 (08:14→16:36)
[2018-12-14] MEDS: DIVALPROEX SODIUM 500 MG DR TABLET PO SCH ×2 (08:14→16:36)
[2018-12-14] MEDS: OXYBUTYNIN CHLORIDE 5 MG TABLET PO SCH ×3 (08:15→16:36)
[2018-12-14] MEDS: CLOPIDOGREL BISULFATE 75 MG TABLET PO SCH (08:16)
[2018-12-14] MEDS: CARBIDOPA/LEVODOPA 25-100 MG ER TABLET PO SCH ×3 (08:16→16:36)
[2018-12-14] MEDS: METOPROLOL TARTRATE 50 MG TABLET PO SCH ×2 (08:18→16:36)
[2018-12-14 14:36] VITALS: BP 148/80
[2018-12-14 18:12] VITALS: BP 117/78
[2018-12-14] MEDS: LORazepam 2 MG TABLET PO PRN (19:40)
[2018-12-15 05:23] VITALS: BP 112/73
[2018-12-15] MEDS: LEVOTHYROXINE SODIUM 50 MCG TABLET PO SCH (06:40)
[2018-12-15 08:32] VITALS: BP 148/64
[2018-12-15] MEDS: OMEGA-3/DHA/EPA/FISH OIL 1,000 MG CAPSULE PO SCH (08:55)
[2018-12-15] MEDS: RisperiDONE 2 MG TABLET PO SCH ×2 (08:55→16:22)
[2018-12-15] MEDS: DIVALPROEX SODIUM 500 MG DR TABLET PO SCH ×2 (08:55→16:21)
[2018-12-15] MEDS: DOCUSATE SODIUM 100 MG CAPSULE PO SCH (08:56)
[2018-12-15] MEDS: CARBIDOPA/LEVODOPA 25-100 MG ER TABLET PO SCH ×3 (08:56→16:22)
[2018-12-15] MEDS: AmLODIPine BESYLATE 10 MG TABLET PO SCH (08:56)
[2018-12-15] MEDS: PANTOPRAZOLE SODIUM 40 MG DR TABLET PO SCH (08:56)
[2018-12-15] MEDS: METOPROLOL TARTRATE 50 MG TABLET PO SCH ×2 (08:56→16:22)
[2018-12-15] MEDS: OXYBUTYNIN CHLORIDE 5 MG TABLET PO SCH ×3 (08:57→16:21)
[2018-12-15] MEDS: CLOPIDOGREL BISULFATE 75 MG TABLET PO SCH (08:57)
[2018-12-15] MEDS: LORazepam 2 MG TABLET PO PRN (16:22)
[2018-12-15 18:21] VITALS: BP 138/73
[2018-12-16 00:55] VITALS: BP 147/86
[2018-12-16] MEDS: LEVOTHYROXINE SODIUM 50 MCG TABLET PO SCH (06:37)
[2018-12-16] MEDS: PANTOPRAZOLE SODIUM 40 MG DR TABLET PO SCH (09:11)
[2018-12-16] MEDS: CLOPIDOGREL BISULFATE 75 MG TABLET PO SCH (09:11)
[2018-12-16] MEDS: AmLODIPine BESYLATE 10 MG TABLET PO SCH (09:12)
[2018-12-16] MEDS: CARBIDOPA/LEVODOPA 25-100 MG ER TABLET PO SCH ×3 (09:12→16:26)
[2018-12-16] MEDS: RisperiDONE 2 MG TABLET PO SCH ×2 (09:12→16:26)
[2018-12-16] MEDS: OXYBUTYNIN CHLORIDE 5 MG TABLET PO SCH ×3 (09:12→16:26)
[2018-12-16] MEDS: DOCUSATE SODIUM 100 MG CAPSULE PO SCH (09:12)
[2018-12-16] MEDS: METOPROLOL TARTRATE 50 MG TABLET PO SCH ×2 (09:12→16:26)
[2018-12-16] MEDS: OMEGA-3/DHA/EPA/FISH OIL 1,000 MG CAPSULE PO SCH (09:12)
[2018-12-16] MEDS: DIVALPROEX SODIUM 500 MG DR TABLET PO SCH ×2 (09:12→16:26)
[2018-12-16 10:09] VITALS: BP 137/86
[2018-12-16 16:53] VITALS: BP 133/84
[2018-12-17 06:18] VITALS: BP 135/72
[2018-12-17] MEDS: LEVOTHYROXINE SODIUM 50 MCG TABLET PO SCH (06:46)
[2018-12-17] MEDS: CLOPIDOGREL BISULFATE 75 MG TABLET PO SCH (08:49)
[2018-12-17] MEDS: RisperiDONE 2 MG TABLET PO SCH ×2 (08:49→16:31)
[2018-12-17] MEDS: PANTOPRAZOLE SODIUM 40 MG DR TABLET PO SCH (08:49)
[2018-12-17] MEDS: CARBIDOPA/LEVODOPA 25-100 MG ER TABLET PO SCH ×3 (08:49→16:31)
[2018-12-17] MEDS: DIVALPROEX SODIUM 500 MG DR TABLET PO SCH ×2 (08:50→16:30)
[2018-12-17] MEDS: OMEGA-3/DHA/EPA/FISH OIL 1,000 MG CAPSULE PO SCH (08:50)
[2018-12-17] MEDS: METOPROLOL TARTRATE 50 MG TABLET PO SCH ×2 (08:50→16:31)
[2018-12-17] MEDS: AmLODIPine BESYLATE 10 MG TABLET PO SCH (08:50)
[2018-12-17] MEDS: DOCUSATE SODIUM 100 MG CAPSULE PO SCH (08:50)
[2018-12-17] MEDS: OXYBUTYNIN CHLORIDE 5 MG TABLET PO SCH ×3 (08:50→16:30)
[2018-12-17 10:37] VITALS: BP 130/80
[2018-12-17 16:54] VITALS: BP 157/101
[2018-12-18] MEDS: LEVOTHYROXINE SODIUM 50 MCG TABLET PO SCH (07:00)
[2018-12-18 08:00] VITALS: BP 128/76
[2018-12-18] MEDS: OMEGA-3/DHA/EPA/FISH OIL 1,000 MG CAPSULE PO SCH (09:09)
[2018-12-18] MEDS: METOPROLOL TARTRATE 50 MG TABLET PO SCH ×2 (09:09→16:01)
[2018-12-18] MEDS: AmLODIPine BESYLATE 10 MG TABLET PO SCH (09:09)
[2018-12-18] MEDS: PANTOPRAZOLE SODIUM 40 MG DR TABLET PO SCH (09:09)
[2018-12-18] MEDS: DOCUSATE SODIUM 100 MG CAPSULE PO SCH (09:09)
[2018-12-18] MEDS: CARBIDOPA/LEVODOPA 25-100 MG ER TABLET PO SCH ×3 (09:09→16:01)
[2018-12-18] MEDS: RisperiDONE 2 MG TABLET PO SCH ×2 (09:09→16:01)
[2018-12-18] MEDS: DIVALPROEX SODIUM 500 MG DR TABLET PO SCH ×2 (09:09→16:00)
[2018-12-18] MEDS: OXYBUTYNIN CHLORIDE 5 MG TABLET PO SCH ×3 (09:10→16:01)
[2018-12-18] MEDS: CLOPIDOGREL BISULFATE 75 MG TABLET PO SCH (09:10)
[2018-12-18 16:17] VITALS: BP 120/87
== END 2018-12-18 17:00 | disposition home or self-care (01) | DRG 885 ==
LOC: EMS 00:19 → 3EI 06:05
PROVIDERS: ADMIT Psychiatry & Neurology Child & Adolescent Psychiatry; ATTEND Psychiatry & Neurology Psychiatry
DX: F25.9 Schizoaffective disorder, unspecified (principal); R45.851 Suicidal ideations; I10 Essential (primary) hypertension; J44.9 Chronic obstructive pulmonary disease, unspecified; I48.91 Unspecified atrial fibrillation; F41.9 Anxiety disorder, unspecified; G20 Parkinson's disease; F12.90 Cannabis use, unspecified, uncomplicated; R45.87 Impulsiveness; G40.909 Epilepsy, unspecified, not intractable, without status epilepticus; K21.9 Gastro-esophageal reflux disease without esophagitis; M19.90 Unspecified osteoarthritis, unspecified site; Z96.698 Presence of other orthopedic joint implants; E03.9 Hypothyroidism, unspecified; E55.9 Vitamin D deficiency, unspecified; G47.00 Insomnia, unspecified; F31.9 Bipolar disorder, unspecified; Z59.0 Homelessness; Z88.8 Allergy status to other drugs, medicaments and biological substances; Z95.0 Presence of cardiac pacemaker; Z87.891 Personal history of nicotine dependence; Z90.89 Acquired absence of other organs; Z56.0 Unemployment, unspecified
CPT/HCPCS: G0480

== ENCOUNTER 2019-01-19 18:50 | Inpatient (IN) | payer MEDICARE, MEDICAID ==
[~2019-01-19] VITALS: Ht 177.8 cm; Wt 110.3 kg
[~2019-01-19 18:50] MED LIST changes: -DOCO2CRE4 TP; -FURO20 PO; -MULT-1239 PO
[2019-01-19] MEDS ORDERED: ASPI-891 PO (19:11)
[2019-01-19] MEDS ORDERED: ASPIRIN 81 MG CHEWABLE TABLET PO ONE (19:15)
[2019-01-19] MEDS ORDERED: DOCU-275 PO (19:19)
[2019-01-19 19:23] LABS: EOSINOPHILS % (AUTO) 2.1 % (1.0-6.0); HEMATOCRIT 40.4 % (41-53); HEMOGLOBIN 13.3 g/dL (13.5-17.5); LYMPHOCYTES % (AUTO) 37.5 % (22.0-44.0); MEAN CORPUSCULAR HEMOGLOBIN 28.9 pg (26.0-34.0); MEAN CORPUSCULAR HGB CONC 32.9 G/dL (31.0-37.0); MEAN CORPUSCULAR VOLUME 88 fL (80-100); MONOCYTES # (AUTO) 0.7 K/uL (0.1-1.0); MONOCYTES % (AUTO) 13.2 % (2.0-9.0); NEUTROPHILS # (AUTO) 2.5 K/uL (1.8-7.7); NEUTROPHILS % (AUTO) 46.2 % (40.0-70.0); PLATELET COUNT (AUTO) 202 K/uL (150-450)
[2019-01-19 19:38] LABS: INR 1.2 (0.9-1.1); PROTHROMBIN TIME 11.8 SEC (9.4-11.6)
[2019-01-19 19:46] LABS: CALCIUM, TOTAL 8.8 mg/dL (8.8-10.5); CREATININE 1.29 mg/dL (0.60-1.30); POTASSIUM 3.5 mmol/L (3.5-5.1)
[2019-01-19 19:52] LABS: ALBUMIN 3.2 g/dL (3.4-5.0); BILIRUBIN,TOTAL 0.4 mg/dL (0.1-1.0); TOTAL PROTEIN, SERUM 6.8 g/dL (6.4-8.2)
[2019-01-19] MEDS ORDERED: 0.9% SODIUM CHLORIDE 10 ML SYRINGE IVP PRN ×2 (21:15→23:00)
[2019-01-19] MEDS ORDERED: ONDANSETRON HCL 4 MG/2 ML VIAL IVP PRN ×2 (21:15→23:00)
[2019-01-19] MEDS ORDERED: ACETAMINOPHEN 325 MG TABLET PO PRN ×2 (21:15→23:00)
[2019-01-19 22:15] VITALS: BP 141/78
[2019-01-19] MEDS ORDERED: ZOLPIDEM TARTRATE 5 MG TABLET PO PRN (23:00)
[2019-01-20] MEDS: DIVALPROEX SODIUM 500 MG DR TABLET PO SCH ×2 (00:24→09:23)
[2019-01-20] MEDS: METOPROLOL TARTRATE 50 MG TABLET PO SCH ×2 (00:24→09:22)
[2019-01-20] MEDS: RisperiDONE 2 MG TABLET PO SCH ×2 (00:24→09:23)
[2019-01-20 03:45] VITALS: BP 149/89
[2019-01-20] MEDS ORDERED: LEVOTHYROXINE SODIUM 50 MCG TABLET PO SCH (06:30)
[2019-01-20 07:26] LABS: BASOPHILS % (AUTO) 0.8 % (0.0-2.0); EOSINOPHILS % (AUTO) 2.4 % (1.0-6.0); HEMATOCRIT 38.9 % (41-53); LYMPHOCYTES # (AUTO) 2.2 K/uL (1.0-4.8); LYMPHOCYTES % (AUTO) 39.2 % (22.0-44.0); MEAN CORPUSCULAR HEMOGLOBIN 29.2 pg (26.0-34.0); MEAN CORPUSCULAR HGB CONC 33.3 G/dL (31.0-37.0); MEAN CORPUSCULAR VOLUME 88 fL (80-100); MONOCYTES # (AUTO) 0.8 K/uL (0.1-1.0); NEUTROPHILS # (AUTO) 2.4 K/uL (1.8-7.7); NEUTROPHILS % (AUTO) 42.6 % (40.0-70.0); PLATELET COUNT (AUTO) 194 K/uL (150-450); RED BLOOD CELL COUNT(AUTO) 4.43 MIL/uL (4.50-5.90); RED CELL DISTRIBUTION WIDTH 15.3 % (11.5-14.5)
[2019-01-20 07:37] VITALS: BP 177/98
[2019-01-20 07:52] LABS: ANION GAP 5 mmol/L (8-16); CALCIUM, TOTAL 8.9 mg/dL (8.8-10.5); CARBON DIOXIDE 34 mmol/L (22-29); CHLORIDE 100 mmol/L (98-107); CHOL/HDL RATIO 4.4 (4.2-7.3); CHOLESTEROL 140 mg/dL (131-200); CREATININE 1.15 mg/dL (0.60-1.30); GLOMERULAR FILTR. RATE CALC > 60 mL/min (>60); GLUCOSE,RANDOM 95 mg/dL (70-110); HDL CHOLESTEROL 32 mg/dL (40-60); LDL CHOL (CALC.) 77 mg/dL (0-130); POTASSIUM 3.6 mmol/L (3.5-5.1); SODIUM SERUM 139 mmol/L (136-145); TRIGLYCERIDES 156 mg/dL (15-150); UREA NITROGEN, BLOOD 14 mg/dL (7-18)
[2019-01-20] MEDS ORDERED: AmLODIPine BESYLATE 10 MG TABLET PO SCH (09:00)
[2019-01-20] MEDS ORDERED: DOCUSATE SODIUM 100 MG CAPSULE PO SCH ×2 (09:00→11:30)
[2019-01-20] MEDS ORDERED: OMEGA-3/DHA/EPA/FISH OIL 1,000 MG CAPSULE PO SCH (09:00)
[2019-01-20] MEDS ORDERED: ENOXAPARIN SODIUM 40 MG/0.4 ML PF SYRINGE SQ SCH (09:00)
[2019-01-20] MEDS ORDERED: PANTOPRAZOLE SODIUM 40 MG DR TABLET PO SCH ×2 (09:00)
[2019-01-20] MEDS ORDERED: ASPIRIN 325 MG EC TABLET PO SCH (09:00)
[2019-01-20] MEDS ORDERED: ATORVASTATIN CALCIUM 40 MG TABLET PO SCH (09:00)
[2019-01-20] MEDS: OXYBUTYNIN CHLORIDE 5 MG TABLET PO SCH ×2 (09:22→16:20)
[2019-01-20] MEDS: CARBIDOPA/LEVODOPA 25-100 MG ER TABLET PO SCH ×2 (09:24→16:20)
[2019-01-20 11:37] VITALS: BP 118/89
[2019-01-20 15:45] VITALS: BP 153/94
[2019-01-20] MEDS ORDERED: RisperiDONE 2 MG TABLET PO ONE (17:45)
[2019-01-20] MEDS ORDERED: DIVALPROEX SODIUM 500 MG DR TABLET PO ONE (17:45)
[2019-01-20] MEDS ORDERED: METOPROLOL TARTRATE 50 MG TABLET PO ONE (17:45)
[2019-01-20] MEDS ORDERED: CARBIDOPA/LEVODOPA 25-100 MG TABLET PO ONE (17:45)
[2019-01-20] MEDS ORDERED: CARBIDOPA/LEVODOPA 25-100 MG ER TABLET PO ONE (18:00)
== END 2019-01-20 18:05 | disposition home or self-care (01) | DRG 313 ==
LOC: EMS 18:51 → 5S 21:11
PROVIDERS: ADMIT Internal Medicine; ATTEND Internal Medicine
DX: R07.89 Other chest pain (principal); I48.20 Chronic atrial fibrillation, unspecified; I20.9 Angina pectoris, unspecified; E66.9 Obesity, unspecified; F20.9 Schizophrenia, unspecified; F31.9 Bipolar disorder, unspecified; G20 Parkinson's disease; G40.909 Epilepsy, unspecified, not intractable, without status epilepticus; I10 Essential (primary) hypertension; I49.5 Sick sinus syndrome; J44.9 Chronic obstructive pulmonary disease, unspecified; Z82.49 Family history of ischemic heart disease and other diseases of the circulatory system; Z95.0 Presence of cardiac pacemaker; Z68.34 Body mass index [BMI] 34.0-34.9, adult
CPT/HCPCS: 83735; 93005; 93306; J1650

== ENCOUNTER 2019-01-24 17:07 | Emergency (ER) | payer MEDICARE, MEDICAID ==
[~2019-01-24] VITALS: Ht 188 cm; Wt 110.3 kg
[~2019-01-24 17:07] MED LIST changes: +ASPI-891 PO; -CLOP75TA3 PO; +DOCU-275 PO; -DSS100 PO; -OXYB5 PO
[2019-01-24 18:50] VITALS: BP 188/108
== END 2019-01-24 19:09 | disposition home or self-care (01) ==
LOC: EMS 17:09
DX: R30.0 Dysuria (principal); F20.9 Schizophrenia, unspecified; I48.91 Unspecified atrial fibrillation; I10 Essential (primary) hypertension; J44.9 Chronic obstructive pulmonary disease, unspecified; F31.9 Bipolar disorder, unspecified; F12.90 Cannabis use, unspecified, uncomplicated; Z95.0 Presence of cardiac pacemaker; Z79.899 Other long term (current) drug therapy; Z88.8 Allergy status to other drugs, medicaments and biological substances; Z98.890 Other specified postprocedural states; Z91.011 Allergy to milk products

== ENCOUNTER 2019-01-31 20:50 | Emergency (ER) | payer MEDICARE, MEDICAID ==
[~2019-01-31] VITALS: Ht 177.8 cm; Wt 106.4 kg
[2019-02-01] MEDS ORDERED: PROPARACAINE HCL 0.5% 15 ML OPHTHALMIC SOLUTION OD ONE (01:15)
[2019-02-01] MEDS ORDERED: FLUORESCEIN SODIUM 1 MG STRIP ONE (02:36)
[2019-02-01 03:30] VITALS: BP 160/93
== END 2019-02-01 03:58 | disposition home or self-care (01) ==
LOC: EMS 20:51
DX: H10.9 Unspecified conjunctivitis (principal); F20.9 Schizophrenia, unspecified; I48.91 Unspecified atrial fibrillation; J44.9 Chronic obstructive pulmonary disease, unspecified; I10 Essential (primary) hypertension; F12.90 Cannabis use, unspecified, uncomplicated; F31.9 Bipolar disorder, unspecified; Z95.0 Presence of cardiac pacemaker; Z88.8 Allergy status to other drugs, medicaments and biological substances; Z91.011 Allergy to milk products; Z79.82 Long term (current) use of aspirin

== ENCOUNTER 2019-03-02 18:24 | Inpatient (IN) | payer MEDICARE, MEDICAID ==
[~2019-03-02] VITALS: Ht 177.8 cm; Wt 106.9 kg
[2019-03-02] MEDS ORDERED: NITROGLYCERIN 0.4 MG SUBLINGUAL TABLET #25 SL ONE (19:15)
[2019-03-02 19:27] LABS: BASOPHILS % (AUTO) 0.8 % (0.0-2.0); EOSINOPHILS % (AUTO) 1.7 % (1.0-6.0); HEMATOCRIT 38.3 % (41-53); HEMOGLOBIN 12.8 g/dL (13.5-17.5); LYMPHOCYTES # (AUTO) 2.3 K/uL (1.0-4.8); LYMPHOCYTES % (AUTO) 31.4 % (22.0-44.0); MEAN CORPUSCULAR HEMOGLOBIN 29.7 pg (26.0-34.0); MEAN CORPUSCULAR HGB CONC 33.5 G/dL (31.0-37.0); MEAN CORPUSCULAR VOLUME 89 fL (80-100); MONOCYTES # (AUTO) 1.2 K/uL (0.1-1.0); MONOCYTES % (AUTO) 16.8 % (2.0-9.0); NEUTROPHILS # (AUTO) 3.5 K/uL (1.8-7.7); NEUTROPHILS % (AUTO) 49.3 % (40.0-70.0); PLATELET COUNT (AUTO) 187 K/uL (150-450); RED BLOOD CELL COUNT(AUTO) 4.31 MIL/uL (4.50-5.90); RED CELL DISTRIBUTION WIDTH 14.7 % (11.5-14.5)
[2019-03-02 19:41] LABS: ANION GAP 3 mmol/L (8-16); CALCIUM, TOTAL 8.4 mg/dL (8.8-10.5); CARBON DIOXIDE 32 mmol/L (22-29); CHLORIDE 102 mmol/L (98-107); CREATININE 1.08 mg/dL (0.60-1.30); GLOMERULAR FILTR. RATE CALC > 60 mL/min (>60); GLUCOSE,RANDOM 110 mg/dL (70-110); POTASSIUM 3.6 mmol/L (3.5-5.1); SODIUM SERUM 137 mmol/L (136-145); UREA NITROGEN, BLOOD 19 mg/dL (7-18)
[2019-03-02 19:47] LABS: ALBUMIN 2.8 g/dL (3.4-5.0); ALKALINE PHOSPHATASE 77 U/L (46-116); ASPARTATE AMINOTRANSFERASE 10 U/L (15-37); BILIRUBIN,TOTAL 0.3 mg/dL (0.1-1.0); TOTAL PROTEIN, SERUM 6.5 g/dL (6.4-8.2); VALPROIC ACID 74 mcg/mL (50-100)
[2019-03-02 19:51] LABS: B-TYPE NATRIURETIC PEPTIDE 84 pg/mL (0-100)
[2019-03-02 19:58] LABS: ALANINE AMINOTRANSFERASE 5 U/L (12-78)
[2019-03-02] MEDS ORDERED: LORazepam 2 MG TABLET PO PRN (21:45)
[2019-03-03 00:17] LABS: AMPHET/METH SCREEN,URINE NEGATIVE (NEGATIVE); BARBITURATE SCREEN, URINE NEGATIVE (NEGATIVE); BENZODIAZEPINES SCREEN,URINE NEGATIVE (NEGATIVE); CANNABINOID SCREEN,URINE NEGATIVE (NEGATIVE); COCAINE SCREEN,URINE NEGATIVE (NEGATIVE); METHADONE SCREEN, URINE NEGATIVE (NEGATIVE); OPIATE SCREEN,URINE NEGATIVE (NEGATIVE); PHENCYCLIDINE SCREEN,URINE NEGATIVE (NEGATIVE)
[2019-03-03 03:22] LABS: CHOL/HDL RATIO 3.2 (4.2-7.3)
[2019-03-03 07:37] LABS: APPEARANCE,URINE CLEAR (CLEAR); BILIRUBIN,URINE NEGATIVE (NEGATIVE); GLUCOSE, URINE (UA) NEGATIVE (NEGATIVE); KETONES,URINE NEGATIVE (NEGATIVE); LEUKOCYTE ESTERASE ,URINE NEGATIVE (NEGATIVE); NITRATE,URINE NEGATIVE (NEGATIVE); OCCULT BLOOD,URINE NEGATIVE (NEGATIVE); PROTEIN,URINE POS 1+ (NEGATIVE); UROBILINOGEN,URINE 0.2 mg/dL (<=1.0)
[2019-03-03 07:59] LABS: BACTERIA,URINE None Seen /HPF (None Seen); RBC,URINE None Seen /HPF (0-2); SQUAMOUS EPITHELIAL CELL,UR Rare /LPF (None Seen); WBC,URINE None Seen /HPF (0-5)
[2019-03-03] MEDS ORDERED: METOPROLOL TARTRATE 50 MG TABLET PO ONE (09:00)
[2019-03-03] MEDS ORDERED: DIVALPROEX SODIUM 500 MG ER TABLET PO ONE (09:00)
[2019-03-03] MEDS ORDERED: CARBIDOPA/LEVODOPA 25-100 MG TABLET PO ONE (09:00)
[2019-03-03] MEDS ORDERED: RisperiDONE 1 MG TABLET PO ONE (09:00)
[2019-03-03] MEDS ORDERED: AmLODIPine BESYLATE 5 MG TABLET PO ONE (09:00)
[2019-03-03] MEDS ORDERED: ASPIRIN 325 MG TABLET PO ONE (09:00)
[2019-03-03 12:49] VITALS: BP 142/90
[2019-03-03 13:04] VITALS: BP 142/90
[2019-03-03 13:17] VITALS: BP 142/90
[2019-03-03 17:52] VITALS: BP 156/92
[2019-03-03] MEDS: RisperiDONE 2 MG TABLET PO SCH (18:08)
[2019-03-03] MEDS ORDERED: ACETAMINOPHEN 325 MG TABLET PO PRN (20:30)
[2019-03-03] MEDS ORDERED: BENZOCAINE/MENTHOL LOZENGE MM PRN (20:30)
[2019-03-03] MEDS ORDERED: ALBUTEROL SULFATE HFA 90 MCG/PUFF 8 GM INHALER IH PRN (20:30)
[2019-03-03] MEDS ORDERED: BACITRACIN 28.4 GM OINTMENT TP PRN (20:30)
[2019-03-03] MEDS ORDERED: MAG HYDROX/AL HYDROX/SIMETH ES 30 ML SUSPENSION UDCUP PO PRN (20:30)
[2019-03-03] MEDS ORDERED: CloNIDine HCL 0.1 MG TABLET PO PRN (20:30)
[2019-03-03] MEDS ORDERED: MAGNESIUM HYDROXIDE SUSPENSION 30 ML UDCUP PO PRN (20:30)
[2019-03-03] MEDS ORDERED: IBUPROFEN 600 MG TABLET PO PRN (20:30)
[2019-03-03] MEDS ORDERED: PETROLATUM,WHITE 28 GM JELLY TP PRN (20:30)
[2019-03-03] MEDS: ZOLPIDEM TARTRATE 10 MG TABLET PO PRN (23:37)
[2019-03-04 08:30] VITALS: BP 153/99
[2019-03-04] MEDS: OMEPRAZOLE 20 MG CAPSULE PO SCH (08:30)
[2019-03-04] MEDS: DOCUSATE SODIUM 100 MG CAPSULE PO SCH (08:30)
[2019-03-04] MEDS: DIVALPROEX SODIUM 500 MG DR TABLET PO SCH ×2 (08:30→17:00)
[2019-03-04] MEDS: RisperiDONE 2 MG TABLET PO SCH ×2 (08:30→17:01)
[2019-03-04 16:00] VITALS: BP 158/98
[2019-03-05] MEDS: DIVALPROEX SODIUM 500 MG DR TABLET PO SCH ×2 (08:50→16:19)
[2019-03-05] MEDS: DOCUSATE SODIUM 100 MG CAPSULE PO SCH (08:50)
[2019-03-05] MEDS: OMEPRAZOLE 20 MG CAPSULE PO SCH (08:51)
[2019-03-05] MEDS: RisperiDONE 2 MG TABLET PO SCH ×2 (08:51→16:19)
[2019-03-05 09:32] VITALS: BP 157/90
[2019-03-05 17:00] VITALS: BP 161/99
[2019-03-05] MEDS: ZOLPIDEM TARTRATE 10 MG TABLET PO PRN (20:18)
[2019-03-06] MEDS: DIVALPROEX SODIUM 500 MG DR TABLET PO SCH ×2 (07:51→16:24)
[2019-03-06] MEDS: DOCUSATE SODIUM 100 MG CAPSULE PO SCH (07:51)
[2019-03-06] MEDS: OMEPRAZOLE 20 MG CAPSULE PO SCH (07:51)
[2019-03-06] MEDS: RisperiDONE 2 MG TABLET PO SCH ×2 (07:51→16:24)
[2019-03-06 08:38] VITALS: BP 141/76
[2019-03-06 17:34] VITALS: BP 135/79
[2019-03-06] MEDS: ZOLPIDEM TARTRATE 10 MG TABLET PO PRN (21:22)
[2019-03-07] MEDS: OMEPRAZOLE 20 MG CAPSULE PO SCH (07:58)
[2019-03-07] MEDS: DOCUSATE SODIUM 100 MG CAPSULE PO SCH (07:58)
[2019-03-07] MEDS: RisperiDONE 2 MG TABLET PO SCH ×2 (07:58→16:24)
[2019-03-07] MEDS: DIVALPROEX SODIUM 500 MG DR TABLET PO SCH ×3 (07:58→20:32)
[2019-03-07 08:31] VITALS: BP 153/74
[2019-03-07 18:02] VITALS: BP 117/72
[2019-03-07] MEDS: METOPROLOL TARTRATE 50 MG TABLET PO SCH (20:32)
[2019-03-08] MEDS: LEVOTHYROXINE SODIUM 50 MCG TABLET PO SCH (06:45)
[2019-03-08] MEDS: OMEPRAZOLE 20 MG CAPSULE PO SCH (09:13)
[2019-03-08] MEDS: AmLODIPine BESYLATE 10 MG TABLET PO SCH (09:13)
[2019-03-08] MEDS: RisperiDONE 2 MG TABLET PO SCH ×2 (09:13→16:28)
[2019-03-08] MEDS: DIVALPROEX SODIUM 500 MG DR TABLET PO SCH ×2 (09:13→16:28)
[2019-03-08] MEDS: DOCUSATE SODIUM 100 MG CAPSULE PO SCH (09:14)
[2019-03-08] MEDS: ASPIRIN 325 MG EC TABLET PO SCH (09:14)
[2019-03-08] MEDS: OMEGA-3/DHA/EPA/FISH OIL 1,000 MG CAPSULE PO SCH (09:14)
[2019-03-08] MEDS: METOPROLOL TARTRATE 50 MG TABLET PO SCH ×2 (09:15→16:28)
[2019-03-08] MEDS: CARBIDOPA/LEVODOPA 25-100 MG ER TABLET PO SCH ×3 (09:15→16:28)
[2019-03-08 09:32] VITALS: BP 140/96
[2019-03-08 16:59] VITALS: BP 142/82
[2019-03-08] MEDS: ZOLPIDEM TARTRATE 10 MG TABLET PO PRN (20:18)
[2019-03-09] MEDS: DIVALPROEX SODIUM 500 MG DR TABLET PO SCH ×2 (08:17→16:09)
[2019-03-09] MEDS: AmLODIPine BESYLATE 10 MG TABLET PO SCH (08:17)
[2019-03-09] MEDS: RisperiDONE 2 MG TABLET PO SCH ×2 (08:17→16:08)
[2019-03-09] MEDS: OMEPRAZOLE 20 MG CAPSULE PO SCH (08:17)
[2019-03-09] MEDS: DOCUSATE SODIUM 100 MG CAPSULE PO SCH (08:17)
[2019-03-09] MEDS: ASPIRIN 325 MG EC TABLET PO SCH (08:18)
[2019-03-09] MEDS: OMEGA-3/DHA/EPA/FISH OIL 1,000 MG CAPSULE PO SCH (08:18)
[2019-03-09] MEDS: METOPROLOL TARTRATE 50 MG TABLET PO SCH ×2 (08:19→16:10)
[2019-03-09] MEDS: LEVOTHYROXINE SODIUM 50 MCG TABLET PO SCH (08:20)
[2019-03-09 08:52] VITALS: BP 142/89
[2019-03-09] MEDS: CARBIDOPA/LEVODOPA 25-100 MG ER TABLET PO SCH ×3 (12:30→16:09)
[2019-03-09 16:44] VITALS: BP 130/105
[2019-03-09] MEDS: ZOLPIDEM TARTRATE 10 MG TABLET PO PRN (20:11)
[2019-03-10] MEDS: LEVOTHYROXINE SODIUM 50 MCG TABLET PO SCH (06:28)
[2019-03-10] MEDS: OMEGA-3/DHA/EPA/FISH OIL 1,000 MG CAPSULE PO SCH (08:06)
[2019-03-10] MEDS: DIVALPROEX SODIUM 500 MG DR TABLET PO SCH ×2 (08:07→16:29)
[2019-03-10] MEDS: AmLODIPine BESYLATE 10 MG TABLET PO SCH (08:07)
[2019-03-10] MEDS: ASPIRIN 325 MG EC TABLET PO SCH (08:07)
[2019-03-10] MEDS: DOCUSATE SODIUM 100 MG CAPSULE PO SCH (08:07)
[2019-03-10] MEDS: OMEPRAZOLE 20 MG CAPSULE PO SCH (08:07)
[2019-03-10] MEDS: RisperiDONE 2 MG TABLET PO SCH ×2 (08:08→16:29)
[2019-03-10] MEDS: CARBIDOPA/LEVODOPA 25-100 MG ER TABLET PO SCH ×3 (08:08→16:29)
[2019-03-10] MEDS: METOPROLOL TARTRATE 50 MG TABLET PO SCH ×2 (08:08→16:28)
[2019-03-10 09:28] VITALS: BP 140/82
[2019-03-10] MEDS ORDERED: ASPI-891 PO (12:27)
[2019-03-10] MEDS ORDERED: OMEP20 PO (12:32)
[2019-03-10 16:04] VITALS: BP 164/103
== END 2019-03-10 18:00 | disposition home or self-care (01) | DRG 885 ==
LOC: EMS 18:24 → 3EX 03-03 08:39
PROVIDERS: ADMIT Psychiatry & Neurology Psychiatry; ATTEND Psychiatry & Neurology Psychiatry
DX: F25.9 Schizoaffective disorder, unspecified (principal); R45.851 Suicidal ideations; I48.91 Unspecified atrial fibrillation; G40.909 Epilepsy, unspecified, not intractable, without status epilepticus; J44.9 Chronic obstructive pulmonary disease, unspecified; K21.9 Gastro-esophageal reflux disease without esophagitis; E78.5 Hyperlipidemia, unspecified; M19.90 Unspecified osteoarthritis, unspecified site; F41.9 Anxiety disorder, unspecified; G20 Parkinson's disease; G47.00 Insomnia, unspecified; I10 Essential (primary) hypertension; E03.9 Hypothyroidism, unspecified; E55.9 Vitamin D deficiency, unspecified; F31.9 Bipolar disorder, unspecified; I25.10 Atherosclerotic heart disease of native coronary artery without angina pectoris; Z95.0 Presence of cardiac pacemaker; Z87.891 Personal history of nicotine dependence; Z91.19 Patient's noncompliance with other medical treatment and regimen
CPT/HCPCS: 93005; G0378; G0480

== ENCOUNTER 2019-03-10 21:44 | Emergency (ER) | payer MEDICARE, MEDICAID ==
[~2019-03-10] VITALS: Ht 177.8 cm; Wt 109.1 kg
[~2019-03-10 21:44] MED LIST changes: +OMEP20 PO
[2019-03-11] MEDS ORDERED: IBUPROFEN 600 MG TABLET PO ONE (01:15)
[2019-03-11 03:58] VITALS: BP 152/90
== END 2019-03-11 04:01 | disposition home or self-care (01) ==
LOC: EMS 21:45
DX: M79.671 Pain in right foot (principal); M79.672 Pain in left foot; F12.90 Cannabis use, unspecified, uncomplicated; I48.91 Unspecified atrial fibrillation; F41.9 Anxiety disorder, unspecified; F31.9 Bipolar disorder, unspecified; J44.9 Chronic obstructive pulmonary disease, unspecified; I10 Essential (primary) hypertension; F20.9 Schizophrenia, unspecified; Z90.89 Acquired absence of other organs; Z95.0 Presence of cardiac pacemaker; Z79.899 Other long term (current) drug therapy; Z79.82 Long term (current) use of aspirin; Z88.8 Allergy status to other drugs, medicaments and biological substances

== ENCOUNTER 2019-03-21 13:02 | Emergency (ER) | payer MEDICARE, MEDICAID ==
[~2019-03-21] VITALS: Ht 177.8 cm; Wt 109.0 kg
[~2019-03-21 13:02] MED LIST changes: -PANT40TA25 PO
[2019-03-21 13:47] LABS: BASOPHILS % (AUTO) 0.8 % (0.0-2.0); EOSINOPHILS % (AUTO) 1.5 % (1.0-6.0); HEMATOCRIT 41.4 % (41-53); HEMOGLOBIN 13.7 g/dL (13.5-17.5); LYMPHOCYTES # (AUTO) 1.5 K/uL (1.0-4.8); LYMPHOCYTES % (AUTO) 24.1 % (22.0-44.0); MEAN CORPUSCULAR HEMOGLOBIN 29.1 pg (26.0-34.0); MEAN CORPUSCULAR HGB CONC 33.1 G/dL (31.0-37.0); MEAN CORPUSCULAR VOLUME 88 fL (80-100); MONOCYTES # (AUTO) 0.8 K/uL (0.1-1.0); MONOCYTES % (AUTO) 13.1 % (2.0-9.0); NEUTROPHILS # (AUTO) 3.7 K/uL (1.8-7.7); NEUTROPHILS % (AUTO) 60.5 % (40.0-70.0); PLATELET COUNT (AUTO) 266 K/uL (150-450); RED BLOOD CELL COUNT(AUTO) 4.71 MIL/uL (4.50-5.90); RED CELL DISTRIBUTION WIDTH 14.3 % (11.5-14.5)
[2019-03-21 13:58] LABS: INR 1.1 (0.9-1.1); PROTHROMBIN TIME 11.3 SEC (9.4-11.6)
[2019-03-21 14:02] LABS: ANION GAP 2 mmol/L (8-16); CALCIUM, TOTAL 8.8 mg/dL (8.8-10.5); CARBON DIOXIDE 35 mmol/L (22-29); CHLORIDE 102 mmol/L (98-107); CREATININE 0.97 mg/dL (0.60-1.30); GLOMERULAR FILTR. RATE CALC > 60 mL/min (>60); GLUCOSE,RANDOM 93 mg/dL (70-110); POTASSIUM 3.9 mmol/L (3.5-5.1); SODIUM SERUM 139 mmol/L (136-145); UREA NITROGEN, BLOOD 17 mg/dL (7-18)
[2019-03-21 14:18] LABS: ALBUMIN 3.2 g/dL (3.4-5.0); ALKALINE PHOSPHATASE 71 U/L (46-116); ASPARTATE AMINOTRANSFERASE 17 U/L (15-37); BILIRUBIN,TOTAL 0.4 mg/dL (0.1-1.0); THYROID STIMULATING HORMONE 2.15 uIU/mL (0.36-3.74); TOTAL PROTEIN, SERUM 7.4 g/dL (6.4-8.2); VALPROIC ACID 88 mcg/mL (50-100)
[2019-03-21 14:33] LABS: ALANINE AMINOTRANSFERASE 11 U/L (12-78)
[2019-03-21 14:55] VITALS: BP 129/81
[2019-03-21 14:58] LABS: AMPHET/METH SCREEN,URINE NEGATIVE (NEGATIVE); BARBITURATE SCREEN, URINE NEGATIVE (NEGATIVE); BENZODIAZEPINES SCREEN,URINE NEGATIVE (NEGATIVE); CANNABINOID SCREEN,URINE NEGATIVE (NEGATIVE); COCAINE SCREEN,URINE NEGATIVE (NEGATIVE); METHADONE SCREEN, URINE NEGATIVE (NEGATIVE); OPIATE SCREEN,URINE NEGATIVE (NEGATIVE); PHENCYCLIDINE SCREEN,URINE NEGATIVE (NEGATIVE)
== END 2019-03-21 15:25 | disposition home or self-care (01) ==
LOC: EMS 13:03
DX: F41.9 Anxiety disorder, unspecified (principal); F25.9 Schizoaffective disorder, unspecified; R00.2 Palpitations; I48.91 Unspecified atrial fibrillation; F31.9 Bipolar disorder, unspecified; J44.9 Chronic obstructive pulmonary disease, unspecified; I10 Essential (primary) hypertension; F12.90 Cannabis use, unspecified, uncomplicated; Z95.0 Presence of cardiac pacemaker; Z88.8 Allergy status to other drugs, medicaments and biological substances; Z91.011 Allergy to milk products; Z79.82 Long term (current) use of aspirin; Z79.899 Other long term (current) drug therapy
CPT/HCPCS: 36415; 80053; 80164; 80307; 84443; 85025; 85610; 93005; 99285; G0480

== ENCOUNTER 2019-06-09 18:10 | Emergency (ER) | payer MEDICARE, MEDICAID ==
[~2019-06-09] VITALS: Ht 177.8 cm; Wt 113.6 kg
[~2019-06-09 18:10] MED LIST changes: +ASPI-1149 PO; -ASPI-891 PO
[2019-06-09] MEDS ORDERED: PERMETHRIN 5% 60 GM CREAM TP ONE (18:45)
[2019-06-09 18:52] VITALS: BP 134/79
== END 2019-06-09 20:02 | disposition home or self-care (01) ==
LOC: EMS 18:13
DX: S50.861A Insect bite (nonvenomous) of right forearm, initial encounter (principal); S50.862A Insect bite (nonvenomous) of left forearm, initial encounter; S80.861A Insect bite (nonvenomous), right lower leg, initial encounter; S80.862A Insect bite (nonvenomous), left lower leg, initial encounter; I10 Essential (primary) hypertension; E03.9 Hypothyroidism, unspecified; J44.9 Chronic obstructive pulmonary disease, unspecified; F31.9 Bipolar disorder, unspecified; F11.90 Opioid use, unspecified, uncomplicated; F12.90 Cannabis use, unspecified, uncomplicated; F15.90 Other stimulant use, unspecified, uncomplicated; F14.90 Cocaine use, unspecified, uncomplicated; Z88.8 Allergy status to other drugs, medicaments and biological substances; Z79.82 Long term (current) use of aspirin; Z79.899 Other long term (current) drug therapy; W57.XXXA Bitten or stung by nonvenomous insect and other nonvenomous arthropods, initial encounter; Y93.89 Activity, other specified; Y92.89 Other specified places as the place of occurrence of the external cause; Y99.8 Other external cause status

== ENCOUNTER 2019-06-10 22:07 | Emergency (ER) | payer MEDICARE, MEDICAID ==
[~2019-06-10] VITALS: Ht 177.8 cm; Wt 113.6 kg
[2019-06-10 23:08] LABS: BASOPHILS % (AUTO) 0.8 % (0.0-2.0); EOSINOPHILS % (AUTO) 5.6 % (1.0-6.0); HEMATOCRIT 40.9 % (41-53); HEMOGLOBIN 13.5 g/dL (13.5-17.5); LYMPHOCYTES # (AUTO) 2.3 K/uL (1.0-4.8); LYMPHOCYTES % (AUTO) 29.3 % (22.0-44.0); MEAN CORPUSCULAR HEMOGLOBIN 29.4 pg (26.0-34.0); MEAN CORPUSCULAR VOLUME 89 fL (80-100); MONOCYTES # (AUTO) 1.2 K/uL (0.1-1.0); MONOCYTES % (AUTO) 15.2 % (2.0-9.0); NEUTROPHILS # (AUTO) 3.9 K/uL (1.8-7.7); NEUTROPHILS % (AUTO) 49.1 % (40.0-70.0); PLATELET COUNT (AUTO) 235 K/uL (150-450); RED CELL DISTRIBUTION WIDTH 15.8 % (11.5-14.5)
[2019-06-10 23:26] LABS: ALANINE AMINOTRANSFERASE 11 U/L (12-78); ALBUMIN 3.4 g/dL (3.4-5.0); ALKALINE PHOSPHATASE 97 U/L (46-116); ANION GAP 5 mmol/L (8-16); ASPARTATE AMINOTRANSFERASE 19 U/L (15-37); BILIRUBIN,TOTAL 0.3 mg/dL (0.1-1.0); CALCIUM, TOTAL 9.3 mg/dL (8.8-10.5); CARBON DIOXIDE 37 mmol/L (22-29); CHLORIDE 95 mmol/L (98-107); CREATININE 1.12 mg/dL (0.60-1.30); GLOMERULAR FILTR. RATE CALC > 60 mL/min (>60); GLUCOSE,RANDOM 123 mg/dL (70-110); SODIUM SERUM 137 mmol/L (136-145); TOTAL PROTEIN, SERUM 7.6 g/dL (6.4-8.2); UREA NITROGEN, BLOOD 18 mg/dL (7-18)
[2019-06-10 23:39] LABS: POTASSIUM 2.9 mmol/L (3.5-5.1)
[2019-06-11] MEDS ORDERED: POTASSIUM CHLORIDE 20 MEQ ER TABLET PO ONE (01:30)
[2019-06-11] MEDS: POTASSIUM CHL 10 MEQ/WATER 50 ML IV SCH ×2 (01:59→03:01)
[2019-06-11 02:24] LABS: AMPHET/METH SCREEN,URINE NEGATIVE (NEGATIVE); BARBITURATE SCREEN, URINE NEGATIVE (NEGATIVE); BENZODIAZEPINES SCREEN,URINE NEGATIVE (NEGATIVE); CANNABINOID SCREEN,URINE NEGATIVE (NEGATIVE); COCAINE SCREEN,URINE NEGATIVE (NEGATIVE); METHADONE SCREEN, URINE NEGATIVE (NEGATIVE); OPIATE SCREEN,URINE NEGATIVE (NEGATIVE)
[2019-06-11 02:26] LABS: PHENCYCLIDINE SCREEN,URINE NEGATIVE (NEGATIVE)
[2019-06-11] MEDS ORDERED: MAGNESIUM SULFATE 2 GM/WATER 50 ML IV ONE (03:00)
[2019-06-11] MEDS ORDERED: SODIUM CHLORIDE 0.9% 250 ML IV ONE (03:05)
[2019-06-11 04:51] LABS: MAGNESIUM 1.7 mg/dL (1.80-2.40); POTASSIUM 4.1 mmol/L (3.5-5.1)
[2019-06-11] MEDS ORDERED: MAGNESIUM OXIDE 400 MG TABLET PO ONE (05:00)
[2019-06-11 05:48] VITALS: BP 137/86
== END 2019-06-11 05:49 | disposition home or self-care (01) ==
LOC: EMS 22:16
DX: F20.9 Schizophrenia, unspecified (principal); E87.6 Hypokalemia; E83.42 Hypomagnesemia; I48.91 Unspecified atrial fibrillation; I10 Essential (primary) hypertension; E03.9 Hypothyroidism, unspecified; J44.9 Chronic obstructive pulmonary disease, unspecified; Z88.8 Allergy status to other drugs, medicaments and biological substances; Z79.899 Other long term (current) drug therapy
CPT/HCPCS: 36415; 80053; 80307; 83735; 84132; 85025; 93005; 96365; 96366; 96367; 99285; G0480; J3475; J3480; J7050

== ENCOUNTER 2019-06-16 09:39 | Inpatient (IN) | payer MEDICARE, MEDICAID ==
[~2019-06-16] VITALS: Ht 177.8 cm; Wt 114.0 kg
[2019-06-16] MEDS ORDERED: ALBUTEROL SULFATE 5 MG/ML 20 ML NEB SOLN [BULK] NEB ONE (10:15)
[2019-06-16] MEDS ORDERED: IPRATROPIUM BROMIDE 0.5 MG/2.5 ML NEB SOLUTION NEB ONE (10:15)
[2019-06-16] MEDS ORDERED: PredniSONE 20 MG TABLET PO ONE (10:15)
[2019-06-16] MEDS ORDERED: PERMETHRIN 5% 60 GM CREAM TP ONE (10:45)
[2019-06-16 13:16] LABS: ANION GAP 8 mmol/L (8-16); CALCIUM, TOTAL 9.3 mg/dL (8.8-10.5); CARBON DIOXIDE 29 mmol/L (22-29); CHLORIDE 99 mmol/L (98-107); GLOMERULAR FILTR. RATE CALC > 60 mL/min (>60); GLUCOSE,RANDOM 157 mg/dL (70-110); POTASSIUM 3.3 mmol/L (3.5-5.1); SODIUM SERUM 136 mmol/L (136-145); UREA NITROGEN, BLOOD 12 mg/dL (7-18)
[2019-06-16 13:22] LABS: ALBUMIN 3.3 g/dL (3.4-5.0); ALKALINE PHOSPHATASE 73 U/L (46-116); ASPARTATE AMINOTRANSFERASE 18 U/L (15-37); BILIRUBIN,TOTAL 0.4 mg/dL (0.1-1.0); TOTAL PROTEIN, SERUM 7.5 g/dL (6.4-8.2)
[2019-06-16 13:25] LABS: BASOPHILS % (AUTO) 0.7 % (0.0-2.0); EOSINOPHILS % (AUTO) 2.4 % (1.0-6.0); HEMATOCRIT 40.7 % (41-53); HEMOGLOBIN 13.3 g/dL (13.5-17.5); LYMPHOCYTES # (AUTO) 1.1 K/uL (1.0-4.8); LYMPHOCYTES % (AUTO) 16.3 % (22.0-44.0); MEAN CORPUSCULAR HEMOGLOBIN 28.9 pg (26.0-34.0); MEAN CORPUSCULAR HGB CONC 32.7 G/dL (31.0-37.0); MEAN CORPUSCULAR VOLUME 88 fL (80-100); MONOCYTES # (AUTO) 0.4 K/uL (0.1-1.0); MONOCYTES % (AUTO) 5.5 % (2.0-9.0); NEUTROPHILS # (AUTO) 5.2 K/uL (1.8-7.7); NEUTROPHILS % (AUTO) 75.1 % (40.0-70.0); PLATELET COUNT (AUTO) 220 K/uL (150-450); RED CELL DISTRIBUTION WIDTH 15.4 % (11.5-14.5)
[2019-06-16 13:33] LABS: ALANINE AMINOTRANSFERASE 7 U/L (12-78)
[2019-06-16] MEDS ORDERED: ONDANSETRON HCL 4 MG/2 ML VIAL IVP PRN ×3 (13:45→21:30)
[2019-06-16] MEDS ORDERED: 0.9% SODIUM CHLORIDE 10 ML SYRINGE IVP PRN (13:45)
[2019-06-16] MEDS ORDERED: ACETAMINOPHEN 325 MG TABLET PO PRN ×3 (13:45→21:30)
[2019-06-16 13:46] LABS: B-TYPE NATRIURETIC PEPTIDE 153 pg/mL (0-100)
[2019-06-16] MEDS ORDERED: ALBUTEROL SULFATE 2.5 MG/0.5 ML NEB SOLUTION NEB SCH (14:00)
[2019-06-16] MEDS ORDERED: IPRATROPIUM BROMIDE 0.5 MG/2.5 ML NEB SOLUTION NEB SCH (14:00)
[2019-06-16 16:00] VITALS: BP 130/67
[2019-06-16] MEDS ORDERED: BISACODYL 10 MG RECTAL RECTAL SUPPOSITORY PR PRN ×2 (16:30→21:30)
[2019-06-16] MEDS ORDERED: ZOLPIDEM TARTRATE 5 MG TABLET PO PRN ×2 (16:30→21:30)
[2019-06-16] MEDS ORDERED: MAGNESIUM HYDROXIDE SUSPENSION 30 ML UDCUP PO PRN ×2 (16:30→21:30)
[2019-06-16 19:29] VITALS: BP 126/80
[2019-06-16] MEDS: IPRATROPIUM BROMIDE 0.5 MG/2.5 ML NEB SOLUTION NEB PRN (20:25)
[2019-06-16] MEDS: ALBUTEROL SULFATE 2.5 MG/0.5 ML NEB SOLUTION NEB PRN (20:25)
[2019-06-16] MEDS: DIVALPROEX SODIUM 500 MG DR TABLET PO SCH (20:39)
[2019-06-16] MEDS: RisperiDONE 2 MG TABLET PO SCH (20:39)
[2019-06-16] MEDS: METOPROLOL TARTRATE 50 MG TABLET PO SCH (20:39)
[2019-06-16] MEDS: DOCUSATE SODIUM 100 MG CAPSULE PO SCH (20:39)
[2019-06-16] MEDS: CARBIDOPA/LEVODOPA 25-100 MG ER TABLET PO SCH (20:39)
[2019-06-16] MEDS ORDERED: HYDROCODONE/ACETAMINOPHEN 5-325 MG TABLET PO PRN (21:30)
[2019-06-16] MEDS ORDERED: ALBUTEROL SULFATE 2.5 MG/0.5 ML NEB SOLUTION NEB PRN (21:30)
[2019-06-16] MEDS ORDERED: IPRATROPIUM BROMIDE 0.5 MG/2.5 ML NEB SOLUTION NEB PRN (21:30)
[2019-06-16] MEDS ORDERED: MORPHINE SULFATE 2 MG/ML SYRINGE IVP PRN (21:30)
[2019-06-17] MEDS ORDERED: HEPARIN SODIUM,PORCINE 5,000 UNITS/ML VIAL SQ SCH
[2019-06-17 00:03] VITALS: BP 123/75
[2019-06-17] MEDS: HEPARIN SODIUM,PORCINE 5,000 UNITS/ML VIAL SQ SCH ×3 (00:11→16:44)
[2019-06-17 04:22] VITALS: BP 131/82
[2019-06-17] MEDS: LEVOTHYROXINE SODIUM 50 MCG TABLET PO SCH (05:39)
[2019-06-17 05:45] LABS: BASOPHILS % (AUTO) 0.4 % (0.0-2.0); EOSINOPHILS % (AUTO) 0.1 % (1.0-6.0); HEMATOCRIT 38.6 % (41-53); HEMOGLOBIN 12.6 g/dL (13.5-17.5); LYMPHOCYTES # (AUTO) 1.5 K/uL (1.0-4.8); LYMPHOCYTES % (AUTO) 13.4 % (22.0-44.0); MEAN CORPUSCULAR HEMOGLOBIN 28.5 pg (26.0-34.0); MEAN CORPUSCULAR HGB CONC 32.6 G/dL (31.0-37.0); MEAN CORPUSCULAR VOLUME 87 fL (80-100); MONOCYTES # (AUTO) 1.8 K/uL (0.1-1.0); MONOCYTES % (AUTO) 15.9 % (2.0-9.0); NEUTROPHILS # (AUTO) 7.9 K/uL (1.8-7.7); NEUTROPHILS % (AUTO) 70.2 % (40.0-70.0); PLATELET COUNT (AUTO) 246 K/uL (150-450); RED BLOOD CELL COUNT(AUTO) 4.41 MIL/uL (4.50-5.90); RED CELL DISTRIBUTION WIDTH 15.9 % (11.5-14.5)
[2019-06-17 06:00] LABS: ALANINE AMINOTRANSFERASE 8 U/L (12-78); ALBUMIN 2.9 g/dL (3.4-5.0); ALKALINE PHOSPHATASE 62 U/L (46-116); ANION GAP 3 mmol/L (8-16); ASPARTATE AMINOTRANSFERASE 13 U/L (15-37); BILIRUBIN,TOTAL 0.3 mg/dL (0.1-1.0); CALCIUM, TOTAL 9.4 mg/dL (8.8-10.5); CARBON DIOXIDE 33 mmol/L (22-29); CHLORIDE 99 mmol/L (98-107); CREATININE 1.09 mg/dL (0.60-1.30); GLOMERULAR FILTR. RATE CALC > 60 mL/min (>60); GLUCOSE,RANDOM 122 mg/dL (70-110); POTASSIUM 4.1 mmol/L (3.5-5.1); SODIUM SERUM 135 mmol/L (136-145); UREA NITROGEN, BLOOD 22 mg/dL (7-18)
[2019-06-17 08:00] VITALS: BP 126/79
[2019-06-17] MEDS: METOPROLOL TARTRATE 50 MG TABLET PO SCH ×2 (08:11→20:32)
[2019-06-17] MEDS: ASPIRIN 325 MG EC TABLET PO SCH (08:11)
[2019-06-17] MEDS: DIVALPROEX SODIUM 500 MG DR TABLET PO SCH ×2 (08:11→20:32)
[2019-06-17] MEDS: AmLODIPine BESYLATE 10 MG TABLET PO SCH (08:11)
[2019-06-17] MEDS: OMEPRAZOLE 20 MG CAPSULE PO SCH (08:11)
[2019-06-17] MEDS: RisperiDONE 2 MG TABLET PO SCH ×2 (08:12→20:32)
[2019-06-17] MEDS: DOCUSATE SODIUM 100 MG CAPSULE PO SCH ×2 (08:12→20:32)
[2019-06-17] MEDS: OMEGA-3/DHA/EPA/FISH OIL 1,000 MG CAPSULE PO SCH (08:12)
[2019-06-17] MEDS: PredniSONE 20 MG TABLET PO SCH (08:12)
[2019-06-17] MEDS: CARBIDOPA/LEVODOPA 25-100 MG ER TABLET PO SCH ×3 (08:12→20:33)
[2019-06-17] MEDS ORDERED: DOCUSATE SODIUM 100 MG CAPSULE PO SCH ×2 (09:00)
[2019-06-17 11:36] VITALS: BP 123/70
[2019-06-17 15:33] VITALS: BP 133/84
[2019-06-17 20:18] VITALS: BP 152/88
[2019-06-18 00:25] VITALS: BP 148/82
[2019-06-18] MEDS: HEPARIN SODIUM,PORCINE 5,000 UNITS/ML VIAL SQ SCH ×3 (00:54→15:11)
[2019-06-18 04:00] VITALS: BP 156/86
[2019-06-18] MEDS: LEVOTHYROXINE SODIUM 50 MCG TABLET PO SCH (06:50)
[2019-06-18] MEDS: DOCUSATE SODIUM 100 MG CAPSULE PO SCH ×2 (07:44→20:23)
[2019-06-18] MEDS: PredniSONE 20 MG TABLET PO SCH (07:44)
[2019-06-18] MEDS: OMEPRAZOLE 20 MG CAPSULE PO SCH (07:44)
[2019-06-18] MEDS: DIVALPROEX SODIUM 500 MG DR TABLET PO SCH ×2 (07:44→20:23)
[2019-06-18] MEDS: CARBIDOPA/LEVODOPA 25-100 MG ER TABLET PO SCH ×3 (07:45→20:23)
[2019-06-18] MEDS: ASPIRIN 325 MG EC TABLET PO SCH (07:45)
[2019-06-18] MEDS: OMEGA-3/DHA/EPA/FISH OIL 1,000 MG CAPSULE PO SCH (07:45)
[2019-06-18] MEDS: AmLODIPine BESYLATE 10 MG TABLET PO SCH (07:45)
[2019-06-18] MEDS: RisperiDONE 2 MG TABLET PO SCH ×2 (07:45→20:23)
[2019-06-18] MEDS: METOPROLOL TARTRATE 50 MG TABLET PO SCH ×2 (07:45→20:23)
[2019-06-18 07:50] VITALS: BP 165/103
[2019-06-18 11:30] VITALS: BP 140/83
[2019-06-18] MEDS ORDERED: HydrOXYzine HCL 25 MG TABLET PO PRN (12:45)
[2019-06-18] MEDS: ALBUTEROL SULFATE 2.5 MG/0.5 ML NEB SOLUTION NEB PRN (19:34)
[2019-06-18] MEDS: IPRATROPIUM BROMIDE 0.5 MG/2.5 ML NEB SOLUTION NEB PRN (19:34)
[2019-06-18 19:59] VITALS: BP 149/101
[2019-06-18 22:02] VITALS: BP 137/89
[2019-06-19] MEDS: HEPARIN SODIUM,PORCINE 5,000 UNITS/ML VIAL SQ SCH ×2 (00:07→08:55)
[2019-06-19 05:55] VITALS: BP 138/86
[2019-06-19] MEDS: LEVOTHYROXINE SODIUM 50 MCG TABLET PO SCH (06:13)
[2019-06-19 08:06] VITALS: BP 151/95
[2019-06-19] MEDS: ASPIRIN 325 MG EC TABLET PO SCH (08:56)
[2019-06-19] MEDS: PredniSONE 20 MG TABLET PO SCH (08:56)
[2019-06-19] MEDS: DIVALPROEX SODIUM 500 MG DR TABLET PO SCH (08:56)
[2019-06-19] MEDS: DOCUSATE SODIUM 100 MG CAPSULE PO SCH (08:56)
[2019-06-19] MEDS: CARBIDOPA/LEVODOPA 25-100 MG ER TABLET PO SCH (08:57)
[2019-06-19] MEDS: METOPROLOL TARTRATE 50 MG TABLET PO SCH (08:57)
[2019-06-19] MEDS: OMEGA-3/DHA/EPA/FISH OIL 1,000 MG CAPSULE PO SCH (08:57)
[2019-06-19] MEDS: RisperiDONE 2 MG TABLET PO SCH (08:57)
[2019-06-19] MEDS: AmLODIPine BESYLATE 10 MG TABLET PO SCH (08:57)
[2019-06-19] MEDS: OMEPRAZOLE 20 MG CAPSULE PO SCH (08:57)
[2019-06-19 11:57] VITALS: BP 103/75
== END 2019-06-19 15:19 | disposition home health service (06) | DRG 192 ==
LOC: EMS 09:41 → 4E 13:54
PROVIDERS: ADMIT Hospitalist; ATTEND Hospitalist
DX: J44.1 Chronic obstructive pulmonary disease with (acute) exacerbation (principal); E03.9 Hypothyroidism, unspecified; G20 Parkinson's disease; I10 Essential (primary) hypertension; F20.9 Schizophrenia, unspecified; F31.9 Bipolar disorder, unspecified; I11.9 Hypertensive heart disease without heart failure; B86 Scabies; E66.9 Obesity, unspecified; I48.91 Unspecified atrial fibrillation; L29.9 Pruritus, unspecified; R09.02 Hypoxemia; K21.9 Gastro-esophageal reflux disease without esophagitis; Z59.0 Homelessness; Z68.36 Body mass index [BMI] 36.0-36.9, adult; Z88.8 Allergy status to other drugs, medicaments and biological substances; Z79.899 Other long term (current) drug therapy
CPT/HCPCS: 83036; 94640; 94644; G0378; J1644